=== PATIENT | male | born 1945 | race Caucasian/White ===

== ENCOUNTER → 2017-04-15 | Outpatient (CLI) | payer OTHER ==
--- NOTE | 2017-04-16 08:56 | DIAGNOSTIC IMAGING REPORT ---
MRI OF THE LUMBAR SPINE WITHOUT CONTRAST CLINICAL HISTORY: Spinal stenosis. Back pain with bilateral lower extremity radiculopathy. COMPARISON STUDY: No previous studies for comparison. TECHNIQUE: Utilizing a 1.5 Arleen magnet and dedicated coil, multiplanar, multiecho imaging of the lumbar spine was performed without IV contrast. FINDINGS: For purposes of numbering on this exam, the L5-S1 disc space is assigned to axial image 23 of 25. Alignment of lumbar spine is anatomic. There is no evidence for acute compression fracture. A Schmorl's node along the superior endplate of L3 is noted. Paravertebral soft tissues are unremarkable. A few T2 hyperintense bilateral renal lesions are suboptimally assessed on this unenhanced exam but statistically reflect cysts. The conus terminates at the mid L1 level. Note is made of a 6 mm round intradural extramedullary lesion immediately distal to the conus located at the L1 level. No additional intracanalicular lesions are identified. L1-2: Central canal and neural foramen are patent. L2-3: There is disc bulge with a superimposed right paracentral/right foraminal disc protrusion with mild narrowing of the right neural foramen and mild narrowing of the right neural foramen. Left neural foramen is patent. L3-4: Central canal and neural foramen are patent. There is facet arthrosis. L4-5: There is facet arthrosis. Central canal and neural foramen are patent. L5-S1: Central canal and neural foramen are patent. IMPRESSION: 1. 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 Differential considerations include a meningioma and schwannoma. A drop metastasis could appear similar although is statistically much less likely. No additional intracanalicular masses. 2. Mild multilevel degenerative changes with a small central/right paracentral disc protrusion at L2-L3 that results in mild narrowing of the right aspect of the canal and right neural foramen. Otherwise, patent central canal. Electronically signed by: Heron Rodriguez M.D. 04/16/2017 8:54 AM Dictated Date/Time: 04/15/2017 1:32 PM
== END | disposition home or self-care (01) ==
LOC: C.MRIBC 12:29
PROVIDERS: ATTEND Orthopaedic Surgery Orthopaedic Surgery of the Spine
DX: M48.061 Spinal stenosis, lumbar region without neurogenic claudication (principal); M53.86 Other specified dorsopathies, lumbar region

== ENCOUNTER 2019-03-28 07:17 | Inpatient (IN) ==
--- NOTE | 2019-03-07 15:36 | PAT Medication Instructions ---
Medication Instructions Date of Service March 07, 2019 Home Medications Bifidobacterium infantis 4 mg capsule 4 mg PO DAILY allopurinol 300 mg tablet 300 mg PO HS chlorthalidone 25 mg tablet 25 mg PO QAM dicyclomine 10 mg capsule 10 mg PO QAM losartan 50 mg tablet 50 mg PO HS rosuvastatin 20 mg tablet 20 mg PO HS tamsulosin 0.4 mg capsule 0.4 mg PO HS amlodipine 5 mg PO HS levothyroxine 25 mcg PO QAM psyllium seed [Metamucil (sugar)] 1 tbsp PO DAILY DO NOT take the morning of surgery Bifidobacterium infantis 4 mg capsule 4 mg PO DAILY chlorthalidone 25 mg tablet 25 mg PO QAM dicyclomine 10 mg capsule 10 mg PO QAM psyllium seed [Metamucil (sugar)] 1 tbsp PO DAILY Take morning of surgery With a small sip of water, OTHERWISE NOTHING TO EAT OR DRINK AFTER MIDNIGHT: levothyroxine 25 mcg PO QAM Take evening before surgery allopurinol 300 mg tablet 300 mg PO HS losartan 50 mg tablet 50 mg PO HS rosuvastatin 20 mg tablet 20 mg PO HS tamsulosin 0.4 mg capsule 0.4 mg PO HS amlodipine 5 mg PO HS Other Notes If you have any questions please call us at [phone] or [phone] or [phone] or [phone]
--- NOTE | 2019-03-08 15:36 | Anesthesiology Consultation ---
Date of Service March 08, 2019 Assessment & Plan (1) Encounter for pre-operative examination: Chart Review Chart Review: Acceptable Risk for Surgery and Patient seen in Pre Admission Testing Teaching & Discussion Instructed NPO after midnight before surgery, except medications with 15 cc of water. Medication instructions provided according to the PAT guidelines. History Surgery Operation Date: 03/28/19 12:55 Proposed Procedures p Laparoscopic Robotic Assisted Retrograde Radical Retropubic Prostatectomy, Possible Open, Possible Pevlic Lymph Node Disection, Posible Suprapubic Tube Placement - Brad Gracia MD Height/Weight Height: 5 ft 8 in Weight: 95.8 kg Allergies Allergy/AdvReac Type Severity Reaction Status Date / Time NSAIDS (Non-Steroidal AdvReac Unknown PT HAS Verified 03/06/19 09:36 Anti-Inflamma CHRONIC KIDNEY DISEASE DYES AdvReac Unknown PT HAS Uncoded 03/06/19 09:36 CHRONIC KIDNEY DISEASE Medications Home Medications Medication Instructions Recorded Confirmed Last Taken Bifidobacterium infantis 4 mg 4 mg PO DAILY 11/02/18 03/06/19 Unknown capsule allopurinol 300 mg tablet 300 mg PO HS 11/02/18 03/06/19 Unknown chlorthalidone 25 mg tablet 25 mg PO QAM 11/02/18 03/06/19 03/05/19 dicyclomine 10 mg capsule 10 mg PO QAM 11/02/18 03/06/19 03/06/19 losartan 50 mg tablet 50 mg PO HS 11/02/18 03/06/19 Unknown rosuvastatin 20 mg tablet 20 mg PO HS 11/02/18 03/06/19 Unknown tamsulosin 0.4 mg capsule 0.4 mg PO HS 11/02/18 03/06/19 Unknown amlodipine 5 mg PO HS 03/06/19 03/06/19 Unknown levothyroxine 25 mcg PO QAM 03/06/19 03/06/19 03/05/19 psyllium seed (sugar) [Metamucil 1 tbsp PO DAILY 03/06/19 03/06/19 Unknown (sugar)] Past Medical History Medical History Chronic kidney disease STAGE 3 Colon polyp (Acute) Diverticula of colon (Acute) Gout (Acute) HX OF HTN (hypertension) (Acute) Hyperlipidemia Hypothyroidism IBS (irritable bowel syndrome) (Acute) Prostate cancer (Acute) Exercise / Class Metabolic Activity II 4-5 Yardwork/Stairs/Walk up hill (Denies CP or SOB with activity, actively works constructions, stairs.) Past Family History Family History Mother , age 77 CHF (congestive heart failure) Father , age 69 Myocardial infarction Brother , age 76 Lung cancer " Never Smoked " Family history of cancer Brother Prostate cancer prostate seed implant 10 yrs ago Lupus Myocardial infarction Sister Heart disease bypass surgery times 2 Son Gout Hypertension Past Surgical History Surgical History H/O umbilical hernia repair (Acute) surgery 2011 History of cardiac cath 15 YR AGO , MELISSA, D/T FAMILY HX - NO FINDINGS History of colonoscopy History of endoscopy Hx of tonsillectomy (Acute) surgery age 6 Past Anesthesia History No Hx of Anesthesia Complications and No Family Hx of Anesthesia Complications History of PONV No Hx of PONV and No Hx of Motion Sickness Social History Smoking Status: Never smoker Do You Dip or Chew Tobacco: No Hx Alcohol Use: Yes Alcohol type: beer alcohol intake frequency: holidays/special occasions only Hx Substance Use: No substance use type: does not use Review of Systems Pt denies any recent chest pain, shortness of breath, palpitations, cough, fever or URI. Physical Exam Vital Signs BP: 136/70 P: 53bpm SPO2: 96% RA T: 97.9 F R: 12 ENMT Mouth: + dental restorations (few caps); no chipped teeth and no loose teeth Thyromental Distance: > or= 3.5 Finger Breadths (4) Mallampati Class: I Neck normal visual inspection; neck extension not limited Respiratory normal respiratory effort Auscultation: lungs clear to auscultation bilaterally Cardiovascular Rate/Rhythm: regular rate and regular rhythm Heart Sounds: no murmur Vessels: no carotid bruit Extremities: no edema Testing Laboratory Results 03/08/19 15:24 03/08/19 15:24 Urine Color Yellow 03/08/19 Unknown Urine Appearance Clear (Clear) 03/08/19 Unknown Urine pH 5.0 (4.5-7.5) 03/08/19 Unknown Ur Specific [place] 1.018 (1.000-1.030) 03/08/19 Unknown Urine Protein Negative (Negative) 03/08/19 Unknown Urine Glucose (UA) Negative (Negative) 03/08/19 Unknown Urine Ketones Negative (Negative) 03/08/19 Unknown Urine Nitrite Negative (Negative) 03/08/19 Unknown Ur Leukocyte Esterase Negative (Negative) 03/08/19 Unknown Blood Type O Positive 03/08/19 15:24 Antibody Screen NEGATIVE 03/08/19 15:24 03/08/19 Unknown Urine Culture - Preliminary Urine,Clean Catch No growth - Less than 1,000 colonies/mL, Final report to follow. Electrocardiogram Date: 08/11/18 Findings: + SB @ (49bpm) otherwise normal Chest X-Ray Date: 03/08/19 Findings: + NAD
--- NOTE | 2019-03-08 16:05 | XRay Report ---
XR chest Pre-admission PA/Lat CLINICAL HISTORY: pat preoperative evaluation COMPARISON STUDY: No previous studies for comparison. FINDINGS: The bones soft tissues and hemidiaphragms are normal. The cardiomediastinal silhouette is n ormal. The lungs are clear. The pulmonary vasculature is normal. IMPRESSION: Negative chest. The above report was generated using voice recognition software. It may contain grammatical, syntax or spelling errors. Electronically signed by: Jonny Dodge M.D. 03/08/2019 4:04 PM
[2019-03-08 16:32] LABS: Basophils # (auto) 0.06 K/uL (0-0.2); Basophils % (auto) 0.5 %; Eosinophils % (auto) 1.6 %; Hematocrit (blood only) 40.2 % (42-52); Hemoglobin 13.3 g/dL (14.0-18.0); Immature Granulocytes # (auto) 0.19 K/uL (0.00-0.02); Immature Granulocytes % (auto) 1.5 %; Lymphocytes # (auto) 1.98 K/uL (1.2-3.4); Lymphocytes % (auto) 15.6 %; Mean Corpuscular Hemoglobin 32.5 pg (25-34); Mean Corpuscular Hgb Conc 33.1 g/dL (32-36); Mean Corpuscular Volume 98.3 fL (80-100); Mean Platelet Volume 10.4 fL (7.4-10.4); Monocytes # (auto) 1.01 K/uL (0.11-0.59); Monocytes % (auto) 7.9 %; Neutrophils # (auto) 9.29 K/uL (1.4-6.5); Neutrophils % (auto) 72.9 %; Platelet Count 283 K/uL (130-400); RDW Coefficient of Variation 13.2 % (11.5-14.5); RDW Standard Deviation 47.2 fL (36.4-46.3); Red Blood Count 4.09 M/uL (4.7-6.1); White Blood Count 12.73 K/uL (4.8-10.8)
[2019-03-08 16:34] LABS: Appearance Urine Clear (Clear); Bilirubin Urine Negative (Negative); Blood Urine Negative (Negative); Color Urine Yellow; Glucose Urine UA Negative (Negative); Ketones Urine Negative (Negative); Leukocyte Esterase Urine Negative (Negative); Nitrite Urine Negative (Negative); Protein Urine Negative (Negative); Specific Gravity Urine 1.018 (1.000-1.030); Urobilinogen Urine Negative (Negative)
[2019-03-08 16:41] LABS: BUN Creatinine Ratio 20.8 (10-20); Calcium 9.2 mg/dl (8.5-10.1); Creatinine Clr Calc Pharmacy 60.4 ml/min; Est GFR (African American) 66.9; Est GFR (Non-African American) 57.7
[~2019-03-28 07:17] MED LIST: CEFAZOLIN 3000MG 65 ML IV SCH; HEPARIN SOD 5,000 UNIT/0.5 ML VIAL SQ SCH; LR 15ML/HR IV SCH
--- NOTE | 2019-03-28 07:17 | History & Physical Bridge Note ---
Date of Service March 28, 2019 History & Physical Bridge Note I have examined the patient, reviewed the History & Physical and in the interval since the performance of the History & Physical I have noted the following changes of clinical significance: no changes noted
[2019-03-28] MEDS ORDERED: BUPIVACAINE 0.5 % 5 MG/1 ML MPF 30ML VIAL ONE (08:19)
[2019-03-28] MEDS ORDERED: ROCURONIUM BROMIDE 10 MG/ML 5 ML VIAL ONE ×4 (08:20→10:37)
[2019-03-28] MEDS ORDERED: fentaNYL citrate 100 MCG/2 ML VIAL ONE ×2 (08:20→10:54)
[2019-03-28] MEDS ORDERED: MIDAZOLAM HCL 1 MG/ML 2ML VIAL ONE (08:20)
[2019-03-28] MEDS ORDERED: PROPOFOL IV EMULSION 10 MG/ML 20 ML VIAL IV ONE (08:20)
[2019-03-28] MEDS ORDERED: ONDANSETRON INJ 2 MG/ML 2 ML VIAL ONE (08:20)
[2019-03-28] MEDS ORDERED: LIDOCAINE HCL 2% 2 ML VIAL/AMP(20MG/ML) INFIL ONE (08:20)
[2019-03-28] MEDS ORDERED: BELLADONNA/OPIUM SUPP 60 MG SUPP PR ONE ×2 (08:21→09:13)
[2019-03-28] MEDS ORDERED: ATROPINE SULFATE 0.1 MG/ML 10ML SYR IV PRN (08:39)
[2019-03-28] MEDS ORDERED: ONDANSETRON INJ 2 MG/ML 2 ML VIAL IV PRN (08:39)
[2019-03-28] MEDS ORDERED: ePHEDrine sulfate 50 MG/ML AMP IV PRN (08:39)
[2019-03-28] MEDS ORDERED: BELLADONNA/OPIUM SUPP 60 MG SUPP PR PRN (10:04)
[2019-03-28] MEDS ORDERED: SURGICEL ABSORB HEMOSTAT 2IN X 14IN TOP ONE (10:19)
[2019-03-28] MEDS ORDERED: ePHEDrine sulfate 50 MG/ML AMP ONE (10:37)
[2019-03-28] MEDS ORDERED: PHENYLEPHRINE 100MCG/ML 5ML SYR ONE (10:37)
[2019-03-28] MEDS ORDERED: FLOSEAL HEMOSTATIC MATRIX 10ML TOP ONE (11:52)
[2019-03-28] MEDS ORDERED: GLYCOPYRROLATE 0.2 MG/ML VIAL ONE (11:58)
[2019-03-28] MEDS ORDERED: NEOSTIGMINE METHYLSULFATE 5 MG/5 ML SYR ONE (11:58)
[2019-03-28] MEDS: fentaNYL citrate 100 MCG/2 ML VIAL IV PRN ×4 (12:42→12:57)
[2019-03-28 13:00] LABS: Basophils # (auto) 0.02 K/uL (0-0.2); Basophils % (auto) 0.1 %; Eosinophils # (auto) 0.09 K/uL (0-0.5); Eosinophils % (auto) 0.7 %; Hematocrit (blood only) 39.8 % (42-52); Hemoglobin 13.2 g/dL (14.0-18.0); Immature Granulocytes # (auto) 0.06 K/uL (0.00-0.02); Immature Granulocytes % (auto) 0.4 %; Lymphocytes # (auto) 0.66 K/uL (1.2-3.4); Lymphocytes % (auto) 4.9 %; Mean Corpuscular Volume 99.5 fL (80-100); Mean Platelet Volume 9.8 fL (7.4-10.4); Monocytes # (auto) 0.62 K/uL (0.11-0.59); Monocytes % (auto) 4.6 %; Neutrophils # (auto) 12.13 K/uL (1.4-6.5); Neutrophils % (auto) 89.3 %; Platelet Count 225 K/uL (130-400); RDW Coefficient of Variation 13.1 % (11.5-14.5); RDW Standard Deviation 47.6 fL (36.4-46.3); White Blood Count 13.58 K/uL (4.8-10.8)
[2019-03-28 13:02] LABS: Mean Corpuscular Hgb Conc 33.2 g/dL (32-36)
[2019-03-28] MEDS: HYDROmorphone INJ 1 MG/ML SYRINGE IV PRN ×8 (13:02→13:37)
[2019-03-28 13:16] LABS: BUN Creatinine Ratio 16.4 (10-20); Calcium 9.2 mg/dl (8.5-10.1); Creatinine Clr Calc Pharmacy 44.8 ml/min; Est GFR (African American) 47.7; Est GFR (Non-African American) 41.2; Potassium 4.1 mmol/L (3.5-5.1)
--- NOTE | 2019-03-28 13:46 | Anesthesiology Progress Note ---
Date of Service March 28, 2019 Anesthesia Post Procedure Vital Signs Vital Signs: Temp Pulse Resp BP Pulse Ox 03/28/19 13:35 78 14 148/69 H 97 03/28/19 13:25 75 12 140/69 99 03/28/19 13:15 75 14 142/68 H 95 03/28/19 13:05 77 14 125/68 98 03/28/19 12:55 85 13 122/76 98 03/28/19 12:45 76 19 133/64 91 03/28/19 12:37 36.6 C 85 15 112/59 L 98 Pain Intensity Abdomen: Pain Intensity: 6 Transfer of Care Handoff Completed per policy Notes Mental Status: alert / awake / arousable and participated in evaluation Patient Amnestic to Procedure: Yes Nausea / Vomiting: adequately controlled Pain: adequately controlled Airway Patency, RR, SpO2: stable & adequate BP & HR: stable & adequate Hydration State: stable & adequate Anesthetic Complications: no major complications apparent and Pt Satisfied with anesthetic care
[2019-03-28] MEDS ORDERED: MoRPHine SULFATE 4 MG/ML 1 ML CARP\\VIAL IV PRN (14:24)
[2019-03-28] MEDS ORDERED: OXYCODONE HCL IR 5 MG TAB (IMMEDIATE RELEASE) PO PRN (14:24)
[2019-03-28] MEDS: ACETAMINOPHEN 1,000 MG/100 ML VIAL IV SCH ×2 (15:24→22:29)
[2019-03-28] MEDS: LACTATED RINGER'S 1,000 ML IV SCH (15:25)
[2019-03-28] MEDS: OXYCODONE HCL IR 5 MG TAB (IMMEDIATE RELEASE) PO PRN ×2 (16:27→20:56)
[2019-03-28] MEDS: CEFAZOLIN 2000MG 2,000 MG/15 ML SYR IV SCH ×2 (16:28→23:56)
[2019-03-28] MEDS ORDERED: COUGH DROP (SUGAR FREE) LOZ 24 LOZ/1 BOX BUCCAL PRN (19:18)
[2019-03-28] MEDS: LOSARTAN POTASSIUM 50 MG TAB PO SCH (20:14)
[2019-03-28] MEDS: DOCUSATE SODIUM 100 MG CAP PO SCH (20:14)
[2019-03-28] MEDS: HEPARIN SOD 5,000 UNIT/0.5 ML VIAL SQ SCH (20:15)
[2019-03-28] MEDS: allopurinoL 300 MG TAB PO SCH (20:15)
[2019-03-28] MEDS ORDERED: ROSUVASTATIN CALCIUM 20 MG TAB PO SCH (21:00)
[2019-03-28] MEDS ORDERED: LOSARTAN POTASSIUM 50 MG TAB PO SCH (21:00)
[2019-03-28] MEDS ORDERED: AMLODIPINE BESYLATE 5 MG TAB PO SCH (21:00)
[2019-03-28] MEDS: MoRPHine SULFATE 10 MG/ML CARP/VIAL IV PRN (22:29)
[2019-03-29] MEDS: MoRPHine SULFATE 10 MG/ML CARP/VIAL IV PRN ×5 (03:14→14:55)
[2019-03-29] MEDS: LACTATED RINGER'S 1,000 ML IV SCH ×2 (03:14→16:04)
[2019-03-29] MEDS: OXYCODONE HCL IR 5 MG TAB (IMMEDIATE RELEASE) PO PRN ×4 (05:40→20:55)
[2019-03-29] MEDS: ACETAMINOPHEN 1,000 MG/100 ML VIAL IV SCH (06:12)
[2019-03-29] MEDS: LEVOTHYROXINE SODIUM 25 MCG TABLET PO SCH (06:13)
[2019-03-29 07:02] LABS: Basophils # (auto) 0.01 K/uL (0-0.2); Basophils % (auto) 0.1 %; Eosinophils # (auto) 0.02 K/uL (0-0.5); Eosinophils % (auto) 0.2 %; Hematocrit (blood only) 35.8 % (42-52); Hemoglobin 11.9 g/dL (14.0-18.0); Immature Granulocytes # (auto) 0.02 K/uL (0.00-0.02); Immature Granulocytes % (auto) 0.2 %; Lymphocytes # (auto) 0.84 K/uL (1.2-3.4); Lymphocytes % (auto) 9.7 %; Mean Corpuscular Hemoglobin 32.4 pg (25-34); Mean Corpuscular Hgb Conc 33.2 g/dL (32-36); Mean Corpuscular Volume 97.5 fL (80-100); Mean Platelet Volume 9.8 fL (7.4-10.4); Monocytes # (auto) 0.99 K/uL (0.11-0.59); Monocytes % (auto) 11.5 %; Neutrophils # (auto) 6.76 K/uL (1.4-6.5); Neutrophils % (auto) 78.3 %; Platelet Count 209 K/uL (130-400); RDW Coefficient of Variation 13.4 % (11.5-14.5); RDW Standard Deviation 47.8 fL (36.4-46.3); Red Blood Count 3.67 M/uL (4.7-6.1); White Blood Count 8.64 K/uL (4.8-10.8)
[2019-03-29 07:28] LABS: BUN Creatinine Ratio 16.3 (10-20); Calcium 8.5 mg/dl (8.5-10.1); Est GFR (African American) 51.9; Est GFR (Non-African American) 44.8
--- NOTE | 2019-03-29 07:33 | Operative Report ---
PG Post Operative Report Pre & Post Diagnosis Operation Date: 03/28/19 08:35 Pre-Op Diagnosis: Prostate Cancer Post-Op Diagnosis: Prostate Cancer I identified the patient and participated in the time-out.: Yes Procedure Operation Date: 03/28/19 08:35 Actual Procedures p Laparoscopic Robotic Assisted Prostatectomy,Bilateral Pevlic Lymph Node Disection - Brad Gracia MD Surgeon aIn Gracia MD Multi Operation Machine Operator Lalitha Torres and Azra Baker Estimated Blood Loss 150 Findings Consistent with Post-Op Diagnosis Specimens 1. Periprostatic fat 2. Left pelvic lymph nodes 3. Right pelvic lymph nodes Description of Procedure The patient was identified in the preoperative holding area, appropriate informe d consents were reviewed and completed, and he was transported to the operating suite. Subcutaneous heparin was administered in the pre-operative holding area. Upon arrival in the operating suite, he received appropriate antibiotics and general anesthesia. He was positioned in dorsal lithotomy, a B&O suppository was inserted after digital rectal exam, and he was prepped and draped in standard fashion. A Flowers catheter was inserted in the sterile field. A Veress needle was passed into the right upper quadrant (location chosen secondary to prior umbilical hernia repair) with uniform insufflation of the abdomen to 15mmHg. A right lateral abdominal incision was made - approximately 15cm from the umbilicus - to accommodate a 12mm Visiport with 10mm 0degree laparoscope. Inspection of the abdomen was carried out, and there was no evidence of traumatic entry or injury secondary to the Veress needle. There were no significant adhesions at the umbilicus or other locations to preclude port placement in a standard configuration. After confirming a clear anterior abdominal wall, ports were subsequently placed in standard robotic prostatectomy fashion without incident. To begin the robotic portion of the case, the left lateral aspect of the sigmoid was mobilized off of the left pelvic side wall to allow the pouch of Villa to be appropriately visualized. Unfortunately, the pouch of Villa was essentially walled off - not allowing distal enough access to dissect the SVs. The medial umbilical ligaments were then controlled with bipolar electrocautery just inferior to the umbilicus. Following cauterization, they were divided utilizing monopolar cautery. A peritoneal incision was carried from this location to the medial aspect of the internal inguinal rings bilaterally with care to avoid opening through the ring. This incision was concluded when the vas deferens was reached. Dissection of the bladder and prostate off of the posterior aspect of the pubic arch was completed allowing full visualization of the prostate. The fat overlying the prostate was removed en bloc and passed off the table as a specimen labeled "periprostatic fat". The endopelvic fascia was cleared during this portion of the procedure, and subsequently opened - first on the right and then the left. The incision through the endopelvic fascia began near the prostate-bladder junction and was carried to the apex with extreme care to preserve all lateral levator musculature as well as the periurethral musculature and sphincter complex. The puboprostatic ligaments were thinned slightly bilaterally before placing a 0-Vicryl figure of 8 stitch around the DVC. The lymph node dissection was then conducted. External iliac vessels were identified on the pelvic side wall. The packet of fat and lymphatic tissue that resides just under the iliac vein was elevated and off of the vein with a split and roll technique. The packet was dissected laterally to the circumflex vein and distally to the obturator nerve which was preserved. The proximal aspect of the packet was carried towards the bifurcation of the iliac vessels. A combination of monopolar and bipolar cautery were used to assist with control. Clips were placed at the proximal and distal aspects of the packet prior to transection. After completing the dissection on both sides, the packets were collected and passed off of the table as specimens labeled "pelvic lymph nodes". My attention then returned to the prostate, with identification of the bladder neck aided by gentle traction on the Flowers catheter and lateral to medial pressure at the presumed level of the bladder neck with the robotic instruments. An anterior cystotomy was made, the Flowers balloon deflated and the catheter guided through the incision to allow anterior retraction. I attempted to preserve maximal bladder neck musculature as I circumferentially dissected around the bladder neck. Of note, he had a small intravesical lobe which was included with the specimen but required additional attention. After incision through the posterior aspect of the mucosa, the dissection was carried through detrusor muscle until the bilateral ampullae of the vasa were identified. Unfortunately, because of the median lobe and the size of the prostate, the angle of dissection was extremely difficult. After spending considerable time attempting to dissect out the SVs and vasa, I ultimately elected to transect these structures near the base of the prostate. I was then able to develop a posterior plane behind the prostate - splitting Denonvilliers's fascia. This dissection was carried as far as possible towards the apex as well as far as possible laterally. An incision in the lateral prostatic fascia was then made bilaterally to faci litate control of the vascular pedicles. The pedicles were each controlled with a series of Weck clips and judicious use of bipolar cautery. The neurovascular bundles were identified with nerves preserved bilaterally. The apical attachments of the prostate were remaining at that stage. The DVC was divided with bipolar electrocautery. Usha-prostatic tissue incised with sharp dissection and monopolar cautery. Maximal urethral length was preserved before dividing the urethra sharply. The prostate was entirely freed at that point, and collected in an EndoCatch bag before being moved out of the field of vision. Hemostasis was confirmed and anastomosis of the bladder and urethra was completed utilizing a double armed V- Lock stitch. A new Flowers catheter was inserted and the anastomosis tested with irrigation. There was no evidence of leak. FloSeal coagulant was placed around the anastomosis. A willem style stitch was used to functionally marsupialize the areas of prior lymph node dissection. The robot was undocked, the specimen extracted through expansion of the usha- umbilical camera port. The fascia was closed with a running 0-PDS - the prior hernia incision was utilized for this. The right medical lab assistant port was closed in two layers - with a figure of 8 0-Vicryl to reapproximate the fascia followed by 4-0 Monocryl to close the skin. Monocryl was used to close all other skin incisions. All wounds were dressed with Dermabond. Lalitha Torres and Linh Baker were present and assisting throughout the case from incision to closure The case was concluded and the patient taken to the PACU in stable condition. I attest to the content of the Intraoperative Record and any orders documented therein. Any exceptions are noted below.
--- NOTE | 2019-03-29 07:55 | Urology Progress Note ---
Date of Service March 29, 2019 Assessment & Plan (1) Prostate cancer: Postop day 1 status post prostatectomy Recovery on pace Ambulate Continue clear liquids Continue IV fluids for now Uncertain he will be ready for discharge home today Subjective Some pain overnight, had his catheter irrigated once but no issues since that time He has not ambulated, but he has been out of bed He is not nauseated but is also not hungry He is taking in water without issue Review of Systems Review of Systems: All systems reviewed & are unremarkable except as noted in HPI & below Physical Exam Physical Exam: Incisions appropriate, no bruising, no strikethrough Urine clear in the catheter Results & Data Vital Signs (Past 12 Hours) Vital Signs Temp Pulse Resp BP Pulse Ox 03/29/19 03:14 36.8 C 62 18 153/87 H 95 03/28/19 22:49 37.0 C 68 16 138/70 93 PG Care Time/CCT Total # of Minutes Spent Total Time Spent with Patient: Total time spent is greater than 50% in coordination of care (as documented) at patient's floor/unit and/or counseling patient:
[2019-03-29] MEDS: LOSARTAN POTASSIUM 50 MG TAB PO SCH ×2 (08:09→20:55)
[2019-03-29] MEDS: ROSUVASTATIN CALCIUM 20 MG TAB PO SCH (08:09)
[2019-03-29] MEDS: PSYLLIUM 58.6% POWDER PACKET PO SCH (08:09)
[2019-03-29] MEDS: LACTOBACILLUS ACIDOPHILUS (FLORANEX) TAB PO SCH (08:09)
[2019-03-29] MEDS: DOCUSATE SODIUM 100 MG CAP PO SCH ×2 (08:10→18:06)
[2019-03-29] MEDS: CHLORTHALIDONE 25 MG TAB PO SCH (08:10)
[2019-03-29] MEDS: HEPARIN SOD 5,000 UNIT/0.5 ML VIAL SQ SCH ×2 (08:10→21:00)
[2019-03-29] MEDS: ONDANSETRON INJ 2 MG/ML 2 ML VIAL IV PRN (10:52)
[2019-03-29] MEDS ORDERED: ALUMINUM/MAGNESIUM SUSP 30 ML UDC ONE (12:49)
[2019-03-29] MEDS: ALUMINUM/MAGNESIUM SUSP 30 ML UDC PO PRN ×2 (12:50→20:58)
[2019-03-29] MEDS: MoRPHine SULFATE 4 MG/ML 1 ML CARP\\VIAL IV PRN ×2 (18:06→23:21)
[2019-03-29] MEDS: allopurinoL 300 MG TAB PO SCH (20:55)
[2019-03-30] MEDS: LACTATED RINGER'S 1,000 ML IV SCH ×2 (05:12→18:18)
[2019-03-30] MEDS: LEVOTHYROXINE SODIUM 25 MCG TABLET PO SCH (05:56)
[2019-03-30] MEDS ORDERED: KETOROLAC TROMETHAMINE 15 MG/ML VIAL IV ONE (06:50)
--- NOTE | 2019-03-30 06:53 | Urology Progress Note ---
Date of Service March 30, 2019 Assessment & Plan (1) Prostate cancer: POD#2 s/p RALP distended, abdominal pain tylenol and narcotics are not helping tremendously despite his borderline Cr, we will offer a single dose of toradol 15mg now ambulate cont ivf Subjective still with notable abdominal pain distended no nausea/vomiting no BM or flatus yet Physical Exam Physical Exam: incisions appropriate abdomen distendend diffusely tender - no focal tenderness no lower extremity edema Results & Data Vital Signs (Past 12 Hours) Vital Signs Temp Pulse Resp BP Pulse Ox 03/29/19 23:41 36.7 C 57 L 18 145/70 H 92 PG Care Time/CCT Total # of Minutes Spent Total Time Spent with Patient: Total time spent is greater than 50% in coordination of care (as documented) at patient's floor/unit and/or counseling patient:
[2019-03-30 08:18] LABS: Basophils # (auto) 0.03 K/uL (0-0.2); Basophils % (auto) 0.4 %; Eosinophils # (auto) 0.18 K/uL (0-0.5); Eosinophils % (auto) 2.3 %; Hematocrit (blood only) 36.2 % (42-52); Hemoglobin 11.7 g/dL (14.0-18.0); Immature Granulocytes # (auto) 0.03 K/uL (0.00-0.02); Immature Granulocytes % (auto) 0.4 %; Lymphocytes # (auto) 1.11 K/uL (1.2-3.4); Lymphocytes % (auto) 14.3 %; Mean Corpuscular Hemoglobin 32.3 pg (25-34); Mean Corpuscular Hgb Conc 32.3 g/dL (32-36); Mean Platelet Volume 9.9 fL (7.4-10.4); Monocytes # (auto) 0.89 K/uL (0.11-0.59); Monocytes % (auto) 11.5 %; Neutrophils # (auto) 5.51 K/uL (1.4-6.5); Neutrophils % (auto) 71.1 %; Platelet Count 229 K/uL (130-400); RDW Coefficient of Variation 13.5 % (11.5-14.5); RDW Standard Deviation 48.9 fL (36.4-46.3); Red Blood Count 3.62 M/uL (4.7-6.1); White Blood Count 7.75 K/uL (4.8-10.8)
[2019-03-30] MEDS: LOSARTAN POTASSIUM 50 MG TAB PO SCH ×2 (08:31→21:00)
[2019-03-30] MEDS: CHLORTHALIDONE 25 MG TAB PO SCH (08:31)
[2019-03-30] MEDS: LACTOBACILLUS ACIDOPHILUS (FLORANEX) TAB PO SCH (08:31)
[2019-03-30] MEDS: HEPARIN SOD 5,000 UNIT/0.5 ML VIAL SQ SCH ×2 (08:31→21:02)
[2019-03-30] MEDS: PSYLLIUM 58.6% POWDER PACKET PO SCH (08:31)
[2019-03-30] MEDS: DOCUSATE SODIUM 100 MG CAP PO SCH ×2 (08:31→21:00)
[2019-03-30] MEDS: ROSUVASTATIN CALCIUM 20 MG TAB PO SCH (08:31)
[2019-03-30] MEDS: MoRPHine SULFATE 4 MG/ML 1 ML CARP\\VIAL IV PRN (08:33)
[2019-03-30 08:50] LABS: BUN Creatinine Ratio 13.4 (10-20); Creatinine Clr Calc Pharmacy 53.2 ml/min; Est GFR (African American) 58.8; Est GFR (Non-African American) 50.7; Potassium 3.8 mmol/L (3.5-5.1)
[2019-03-30] MEDS: OXYCODONE HCL IR 5 MG TAB (IMMEDIATE RELEASE) PO PRN ×3 (11:57→21:01)
[2019-03-30] MEDS: ALUMINUM/MAGNESIUM SUSP 30 ML UDC PO PRN (15:44)
[2019-03-30] MEDS: allopurinoL 300 MG TAB PO SCH (21:00)
[2019-03-31] MEDS: MoRPHine SULFATE 4 MG/ML 1 ML CARP\\VIAL IV PRN ×3 (02:36→23:27)
[2019-03-31] MEDS: LEVOTHYROXINE SODIUM 25 MCG TABLET PO SCH (05:17)
[2019-03-31] MEDS: OXYCODONE HCL IR 5 MG TAB (IMMEDIATE RELEASE) PO PRN ×4 (05:17→20:59)
[2019-03-31] MEDS: LACTATED RINGER'S 1,000 ML IV SCH (07:35)
[2019-03-31 08:22] LABS: Basophils # (auto) 0.03 K/uL (0-0.2); Basophils % (auto) 0.4 %; Eosinophils # (auto) 0.29 K/uL (0-0.5); Eosinophils % (auto) 3.6 %; Hematocrit (blood only) 35.6 % (42-52); Hemoglobin 11.5 g/dL (14.0-18.0); Immature Granulocytes # (auto) 0.03 K/uL (0.00-0.02); Immature Granulocytes % (auto) 0.4 %; Lymphocytes # (auto) 0.94 K/uL (1.2-3.4); Lymphocytes % (auto) 11.6 %; Mean Corpuscular Hemoglobin 32.9 pg (25-34); Mean Corpuscular Hgb Conc 32.3 g/dL (32-36); Mean Corpuscular Volume 101.7 fL (80-100); Mean Platelet Volume 9.7 fL (7.4-10.4); Monocytes # (auto) 0.79 K/uL (0.11-0.59); Monocytes % (auto) 9.7 %; Neutrophils # (auto) 6.05 K/uL (1.4-6.5); Neutrophils % (auto) 74.3 %; Platelet Count 207 K/uL (130-400); RDW Coefficient of Variation 13.1 % (11.5-14.5); RDW Standard Deviation 48.6 fL (36.4-46.3); White Blood Count 8.13 K/uL (4.8-10.8)
[2019-03-31 08:49] LABS: BUN Creatinine Ratio 11.8 (10-20); Creatinine Clr Calc Pharmacy 54.4 ml/min; Est GFR (African American) 60.4; Est GFR (Non-African American) 52.1; Potassium 3.7 mmol/L (3.5-5.1)
[2019-03-31] MEDS: PSYLLIUM 58.6% POWDER PACKET PO SCH (08:56)
[2019-03-31] MEDS: DOCUSATE SODIUM 100 MG CAP PO SCH ×2 (08:56→20:03)
[2019-03-31] MEDS: LACTOBACILLUS ACIDOPHILUS (FLORANEX) TAB PO SCH (08:56)
[2019-03-31] MEDS: CHLORTHALIDONE 25 MG TAB PO SCH (08:57)
[2019-03-31] MEDS: ROSUVASTATIN CALCIUM 20 MG TAB PO SCH (08:57)
[2019-03-31] MEDS: LOSARTAN POTASSIUM 50 MG TAB PO SCH ×2 (08:58→20:03)
[2019-03-31] MEDS: HEPARIN SOD 5,000 UNIT/0.5 ML VIAL SQ SCH ×2 (08:59→20:48)
[2019-03-31] MEDS ORDERED: bisacodyL 10 MG SUPP PR STA (09:20)
--- NOTE | 2019-03-31 10:19 | Urology Progress Note ---
Date of Service March 31, 2019 Assessment & Plan (1) Prostate cancer: 73yo M POD #3 s/p RALRP with Dr. Gracia Improving slowly, still with abdominal soreness - will give one time dose of toradol Has not moved bowels yet, some abdominal distention - will give dulcolax suppository today. PT ordered for poor ambulation operatively. Okay to advance diet slowly as pt able to tolerate. He would like to discharge today if clinically stable. Pt to be re-evaluated later today by Dr. Gracia. Subjective 73yo M POD # 3 s/p RALRP, BLND with Dr. Gracia Abd remains distended but improved from yesterday per patient report. Tolerating full clears but with minimal appetite. No flatus yet, no emesis Minimal ambulation due to soreness. Toradol did provide relief yesterday, one time dose given kidney function Labs reviewed -Cr continues to trend down. No leukocytosis, h/h stable. Review of Systems Review of Systems: All systems reviewed & are unremarkable except as noted in HPI & below Physical Exam Physical Exam: A&Ox3 RRR abd soft, nontender Results & Data Vital Signs (Past 12 Hours) Vital Signs Temp Pulse Pulse Resp BP Pulse Ox 03/31/19 08:00 36.7 C 69 19 174/74 H 92 03/30/19 23:12 36.9 C 63 16 149/69 H 90 PG Care Time/CCT Total # of Minutes Spent Total Time Spent with Patient: Total time spent is greater than 50% in coordination of care (as documented) at patient's floor/unit and/or counseling patient:
[2019-03-31] MEDS ORDERED: KETOROLAC TROMETHAMINE 15 MG/ML VIAL IV ONE (10:33)
[2019-03-31] MEDS: ACETAMINOPHEN 500 MG TAB PO PRN (19:58)
[2019-03-31] MEDS: CIPROFLOXACIN 400 MG/200 ML BAG IV SCH (19:58)
[2019-03-31] MEDS: allopurinoL 300 MG TAB PO SCH (20:03)
[2019-04-01] MEDS: ACETAMINOPHEN 500 MG TAB PO PRN ×3 (03:54→23:49)
[2019-04-01] MEDS: LEVOTHYROXINE SODIUM 25 MCG TABLET PO SCH (05:09)
[2019-04-01] MEDS: DOCUSATE SODIUM 100 MG CAP PO SCH ×2 (09:34→20:30)
[2019-04-01] MEDS: LACTOBACILLUS ACIDOPHILUS (FLORANEX) TAB PO SCH (09:34)
[2019-04-01] MEDS: PSYLLIUM 58.6% POWDER PACKET PO SCH (09:34)
[2019-04-01] MEDS: CHLORTHALIDONE 25 MG TAB PO SCH (09:34)
[2019-04-01] MEDS: LOSARTAN POTASSIUM 50 MG TAB PO SCH ×2 (09:34→20:30)
[2019-04-01] MEDS: ROSUVASTATIN CALCIUM 20 MG TAB PO SCH (09:34)
[2019-04-01] MEDS: HEPARIN SOD 5,000 UNIT/0.5 ML VIAL SQ SCH ×2 (09:34→20:30)
[2019-04-01] MEDS: CIPROFLOXACIN 400 MG/200 ML BAG IV SCH ×2 (09:46→20:29)
[2019-04-01] MEDS: MoRPHine SULFATE 4 MG/ML 1 ML CARP\\VIAL IV PRN ×2 (09:50→14:03)
--- NOTE | 2019-04-01 09:51 | Urology Progress Note ---
Date of Service April 01, 2019 Assessment & Plan (1) Prostate cancer: s/p RALP not progressing very quickly, low grade temps overnight started cipro now empirically bowel regimen with metamucil and probiotics i suspect this is more of an expected post op ileus than diverticulitis, but if he worsens overnight, imaging will likely be needed tomorrow Subjective set back overnight shaking chills and fevers resolved with tylenol abdominal pain persists - non-focal reports he feels it is similar to past episodes of diverticulitis did move his bowels a bit overnight not hungry now intermittent nausea Review of Systems Review of Systems: All systems reviewed & are unremarkable except as noted in HPI & below Physical Exam Physical Exam: mildly uncomfortable appearing incisions appropriate no focal tenderness, but uniformly tender (mild) moderately distended Results & Data Vital Signs (Past 12 Hours) Vital Signs Temp Pulse Resp BP Pulse Ox 04/01/19 07:57 37.4 C 83 18 107/61 93 04/01/19 05:10 36.7 C 04/01/19 03:48 38.8 C H 03/31/19 23:22 37.3 C 81 16 144/73 H 92 PG Care Time/CCT Total # of Minutes Spent Total Time Spent with Patient: Total time spent is greater than 50% in coordination of care (as documented) at patient's floor/unit and/or counseling patient:
[2019-04-01 09:59] LABS: Basophils # (auto) 0.02 K/uL (0-0.2); Basophils % (auto) 0.2 %; Eosinophils % (auto) 1.2 %; Hematocrit (blood only) 36.7 % (42-52); Hemoglobin 12.3 g/dL (14.0-18.0); Immature Granulocytes # (auto) 0.02 K/uL (0.00-0.02); Immature Granulocytes % (auto) 0.2 %; Lymphocytes # (auto) 0.47 K/uL (1.2-3.4); Lymphocytes % (auto) 5.5 %; Mean Corpuscular Hemoglobin 33.8 pg (25-34); Mean Corpuscular Hgb Conc 33.5 g/dL (32-36); Mean Corpuscular Volume 100.8 fL (80-100); Mean Platelet Volume 9.6 fL (7.4-10.4); Monocytes # (auto) 1.09 K/uL (0.11-0.59); Monocytes % (auto) 12.9 %; Neutrophils # (auto) 6.77 K/uL (1.4-6.5); Platelet Count 207 K/uL (130-400); RDW Standard Deviation 48.2 fL (36.4-46.3); Red Blood Count 3.64 M/uL (4.7-6.1); White Blood Count 8.47 K/uL (4.8-10.8)
[2019-04-01] MEDS ORDERED: PSYLLIUM 58.6% POWDER PACKET PO SCH (10:00)
[2019-04-01 10:26] LABS: BUN Creatinine Ratio 11.8 (10-20); Creatinine Clr Calc Pharmacy 45.6 ml/min; Est GFR (African American) 48.8; Est GFR (Non-African American) 42.1; Potassium 3.9 mmol/L (3.5-5.1)
[2019-04-01] MEDS: SACCHAROMYCES BOULARDII 250 MG CAP PO SCH (10:49)
[2019-04-01] MEDS: ONDANSETRON INJ 2 MG/ML 2 ML VIAL IV PRN ×2 (14:06→20:41)
--- NOTE | 2019-04-01 15:54 | XRay Report ---
XR chest 1V portable CLINICAL HISTORY: Fever. COMPARISON STUDY: Chest radiograph March 08, 2019. FINDINGS: Lung volumes are normal. There is no pneumothorax or pleural effusion. Linear left basilar opacity favors atelectasis. No consolidation is identified to suggest pneumonia and there is no evide nce for pulmonary edema. Moderate cardiomegaly is noted. IMPRESSION: 1. No acute findings. 2. Moderate cardiomegaly. 3. Linear left basilar opacity suggestive of atelectasis. Electronically signed by: Heron Rodriguez M.D. 04/01/2019 3:52 PM
[2019-04-01] MEDS: OXYCODONE HCL IR 5 MG TAB (IMMEDIATE RELEASE) PO PRN ×2 (16:53→20:41)
[2019-04-01] MEDS ORDERED: bisacodyL 10 MG SUPP PR STA (17:40)
--- NOTE | 2019-04-01 17:59 | CT Scan Report ---
CT OF THE ABDOMEN AND PELVIS WITHOUT CONTRAST CLINICAL HISTORY: Fever. Abdominal pain. Status post prostatectomy March 29, 2019. COMPARISON STUDY: No previous studies for comparison. TECHNIQUE: Axial images of the abdomen and pelvis were obtained without IV contrast. Images were revi ewed in the axial, sagittal, and coronal planes. Automated exposure control was utilized for the cass dy. A dose lowering technique was utilized adhering to the principles of ALARA. FINDINGS: Imaged portions of the lower lungs demonstrate moderate coronary artery calcification and a few low suspicion right middle lobe nodules which are likely benign. No pneumatosis, free air or por vaina venous gas is present. Unenhanced images of the liver, spleen and pancreas are unremarkable. Low- attenuation bilateral adrenal nodules favor adenomas. There is no hydronephrosis. A Flowers balloon is noted within the bladder. The bladder is collapsed. Numerous bilateral renal lesions are noted. These are suboptimally assessed on this unenhanced exam. The majority of these measure water attenuation a nd favor cysts. There is a 2 cm lesion within the upper pole of the right kidney, a 1.9 cm lesion wit hin the upper pole of the left kidney and a 0.7 cm lesion within the midpole of the right kidney whic h measure above water attenuation. There is no evidence for a bowel obstruction. Pancolonic diverticu losis is noted. There is mild diffuse colonic wall thickening with adjacent infiltration. No associat ed abscess is noted. There is no abnormality within the prostatectomy bed. Mild retroperitoneal infil tration and trace fluid is likely postsurgical. No lymphadenopathy is present. No suspicious osseous lesions are noted. A locule of extraluminal gas within the right hemipelvis is postsurgical. This is not unexpected. IMPRESSION: 1. Mild diffuse colonic wall thickening and pericolonic infiltration. Although pancolonic diverticulo sis, an infectious colitis is favored. Diverticulitis could appear similar but is considered less lik yoav. No abscess. No free air. 2. Expected findings following recent prostatectomy. Single locule of extraluminal gas with mild retr operitoneal infiltration and trace ascites. No fluid collection. 3. Multiple bilateral renal lesions. The majority, if not all, of these likely reflect cysts however a few measure above water attenuation, as described above. Comparison with prior imaging studies, if available, is recommended. In the absence of prior studies, an MRI of the kidneys could be obtained. Electronically signed by: Heron Rodriguez M.D. 04/01/2019 5:56 PM
[2019-04-01] MEDS: allopurinoL 300 MG TAB PO SCH (20:30)
[2019-04-01] MEDS: metroNIDAZOLE 500 MG TAB PO SCH (20:42)
[2019-04-02] MEDS: OXYCODONE HCL IR 5 MG TAB (IMMEDIATE RELEASE) PO PRN (00:59)
[2019-04-02 05:23] LABS: Basophils # (auto) 0.02 K/uL (0-0.2); Basophils % (auto) 0.2 %; Eosinophils # (auto) 0.12 K/uL (0-0.5); Eosinophils % (auto) 1.1 %; Hematocrit (blood only) 37.8 % (42-52); Hemoglobin 12.5 g/dL (14.0-18.0); Immature Granulocytes # (auto) 0.08 K/uL (0.00-0.02); Immature Granulocytes % (auto) 0.8 %; Lymphocytes # (auto) 0.46 K/uL (1.2-3.4); Lymphocytes % (auto) 4.4 %; Mean Corpuscular Hemoglobin 32.8 pg (25-34); Mean Corpuscular Hgb Conc 33.1 g/dL (32-36); Mean Corpuscular Volume 99.2 fL (80-100); Mean Platelet Volume 9.8 fL (7.4-10.4); Monocytes # (auto) 1.67 K/uL (0.11-0.59); Neutrophils % (auto) 77.5 %; Platelet Count 238 K/uL (130-400); RDW Coefficient of Variation 13.3 % (11.5-14.5); RDW Standard Deviation 47.8 fL (36.4-46.3); Red Blood Count 3.81 M/uL (4.7-6.1); White Blood Count 10.45 K/uL (4.8-10.8)
[2019-04-02] MEDS: LEVOTHYROXINE SODIUM 25 MCG TABLET PO SCH (05:45)
[2019-04-02 05:50] LABS: BUN Creatinine Ratio 11.1 (10-20); Calcium 8.8 mg/dl (8.5-10.1); Creatinine Clr Calc Pharmacy 30.3 ml/min; Est GFR (African American) 29.8; Est GFR (Non-African American) 25.7; Potassium 3.7 mmol/L (3.5-5.1)
[2019-04-02] MEDS: ONDANSETRON INJ 2 MG/ML 2 ML VIAL IV PRN ×2 (08:49→16:41)
[2019-04-02] MEDS: LOSARTAN POTASSIUM 50 MG TAB PO SCH (08:50)
[2019-04-02] MEDS: DOCUSATE SODIUM 100 MG CAP PO SCH ×2 (08:50→21:18)
[2019-04-02] MEDS: CIPROFLOXACIN 400 MG/200 ML BAG IV SCH (08:50)
[2019-04-02] MEDS: LACTOBACILLUS ACIDOPHILUS (FLORANEX) TAB PO SCH (08:50)
[2019-04-02] MEDS: SACCHAROMYCES BOULARDII 250 MG CAP PO SCH (08:51)
[2019-04-02] MEDS: ROSUVASTATIN CALCIUM 20 MG TAB PO SCH (08:51)
[2019-04-02] MEDS: PSYLLIUM 58.6% POWDER PACKET PO SCH (08:51)
[2019-04-02] MEDS: metroNIDAZOLE 500 MG TAB PO SCH ×2 (08:51→21:18)
[2019-04-02] MEDS: CHLORTHALIDONE 25 MG TAB PO SCH ×2 (08:51→10:00)
[2019-04-02] MEDS: HEPARIN SOD 5,000 UNIT/0.5 ML VIAL SQ SCH ×2 (08:52→21:19)
--- NOTE | 2019-04-02 09:58 | Urology Progress Note ---
Date of Service April 02, 2019 Assessment & Plan (1) Prostate cancer: s/p prostatectomy - overall, not thriving - fevers - yoon culture, CXR, abd CT yesterday - no definitive pathology treating for colitis now - CR jumped considerably today - check CK - hydrate aggressively - stop cipro - cont flagyl MoM - check labs this afternoon -phenergan for nausea - ambulate Subjective reports that he feels terrible nausea/vomiting low grade temps yesterday - CT: no fluid collections, no bowel obstruction, maybe colitis - had been starte on cipro yesterday - flagyl added after the CT CXR: atelectasis - Cr jumped considerably today - 2.42 - wbc 10 Physical Exam Physical Exam: appears uncomfortable incisions ok urine clear - somewhat concentrated this AM Results & Data Vital Signs (Past 12 Hours) Vital Signs Temp Pulse Resp BP BP Pulse Ox 04/02/19 07:15 36.7 C 78 18 142/79 H 93 04/01/19 23:34 37.6 C H 87 17 128/73 93 PG Care Time/CCT Total # of Minutes Spent Total Time Spent with Patient: Total time spent is greater than 50% in coordination of care (as documented) at patient's floor/unit and/or counseling patient:
[2019-04-02] MEDS ORDERED: PROMETHAZINE HCL 6.25 MG in SODIUM CHLORIDE 0.9% 50 ML IV PRN (10:09)
[2019-04-02] MEDS ORDERED: SODIUM CHLORIDE 0.9% 1000ML 500 ML IV ONE (10:10)
[2019-04-02] MEDS ORDERED: SODIUM CHLORIDE 0.9% 500 ML IV ONE (10:45)
[2019-04-02] MEDS: D5W AND 1/2NSS 1,000 ML IV SCH ×2 (11:29→19:45)
[2019-04-02 16:24] LABS: BUN Creatinine Ratio 10.6 (10-20); Calcium 8.7 mg/dl (8.5-10.1); Est GFR (African American) 23.6; Est GFR (Non-African American) 20.3
[2019-04-02 16:25] LABS: Potassium 4.4 mmol/L (3.5-5.1)
--- NOTE | 2019-04-02 18:49 | Urology Progress Note ---
Date of Service April 02, 2019 Subjective Repeat labs this afternoon show an increase in Cr to 2.9 from 2.4 (1.6 yesterday) - consult placed to nephrology - also discussed the patient with nephrology -hold losartan and chlorthalidone -decrease IVF slightly Possible ATN from NSAIDS shortly after surgery? Suspect Cr will continue to rise overnight - will have to monitor closely and support as appropriate. Results & Data Vital Signs (Past 12 Hours) Vital Signs Temp Pulse Resp BP BP Pulse Ox 04/02/19 14:57 36.4 C L 70 16 134/69 96 04/02/19 07:15 36.7 C 78 18 142/79 H 93 PG Care Time/CCT Total # of Minutes Spent Total Time Spent with Patient: Total time spent is greater than 50% in coor dination of care (as documented) at patient's floor/unit and/or counseling patient:
[2019-04-02] MEDS ORDERED: Nursing to Pharmacy Communication ONE (20:26)
[2019-04-02] MEDS: allopurinoL 300 MG TAB PO SCH (21:18)
[2019-04-03 00:52] LABS: Appearance Urine Cloudy (Clear); Bilirubin Urine Negative (Negative); Blood Urine 3+ (Negative); Color Urine Yellow; Glucose Urine UA Negative (Negative); Ketones Urine Negative (Negative); Leukocyte Esterase Urine Trace (Negative); Nitrite Urine Negative (Negative); Protein Urine 1+ (Negative); Specific Gravity Urine <= 1.005 (1.000-1.030); Urobilinogen Urine Negative (Negative); pH Urine 5.5 (4.5-7.5)
[2019-04-03 00:58] LABS: RBC Urine >30 /hpf (0-4)
[2019-04-03 01:00] LABS: Bacteria Urine 1+ (Negative); Mucus Urine Present (None Prsent)
[2019-04-03 01:03] LABS: Hyaline Casts Urine 0-5 /lpf (0-5)
[2019-04-03] MEDS: LEVOTHYROXINE SODIUM 25 MCG TABLET PO SCH (05:55)
[2019-04-03] MEDS: D5W AND 1/2NSS 1,000 ML IV SCH ×2 (06:00→18:05)
--- NOTE | 2019-04-03 07:45 | Urology Progress Note ---
Date of Service April 03, 2019 Assessment & Plan (1) Prostate cancer: s/p prostatectomy prolonged hospitalization BUDDY - nephrology consultation this AM help losartan and chlorthalidone await labs - UoP picked up last evening feeling slightly better has been on flagyl for possible colitis - uncertain this is necessary, may consider stopping after today Subjective Continues to struggle through his recovery, but subjectively is improved this AM no nausea overnight small BMs pain is ok still describes a general "ill feeling" Physical Exam Physical Exam: mildly uncomfortable appearing AAOx3 no resp distress RRR abd soft incisions appropriate urine clear mild edema - not clinically fluid overloaded Results & Data Vital Signs (Past 12 Hours) Vital Signs Temp Pulse Pulse Resp BP Pulse Ox 04/03/19 07:00 36.5 C 80 20 136/75 92 04/02/19 22:50 36.8 C 78 16 143/71 H 90 04/02/19 19:48 36.8 C 84 14 136/76 95 PG Care Time/CCT Total # of Minutes Spent Total Time Spent with Patient: Total time spent is greater than 50% in coordination of care (as documented) at patient's floor/unit and/or counseling patient:
[2019-04-03] MEDS: SACCHAROMYCES BOULARDII 250 MG CAP PO SCH (09:04)
[2019-04-03] MEDS: DOCUSATE SODIUM 100 MG CAP PO SCH ×2 (09:04→20:20)
[2019-04-03] MEDS: metroNIDAZOLE 500 MG TAB PO SCH ×2 (09:05→20:18)
[2019-04-03] MEDS: HEPARIN SOD 5,000 UNIT/0.5 ML VIAL SQ SCH ×2 (09:05→20:18)
[2019-04-03] MEDS: LACTOBACILLUS ACIDOPHILUS (FLORANEX) TAB PO SCH (09:05)
[2019-04-03] MEDS: ROSUVASTATIN CALCIUM 20 MG TAB PO SCH (09:05)
[2019-04-03 09:43] LABS: BUN Creatinine Ratio 12.4 (10-20); Calcium 8.5 mg/dl (8.5-10.1); Creatinine Clr Calc Pharmacy 31.4 ml/min; Est GFR (Non-African American) 26.8
[2019-04-03] MEDS ORDERED: POTASSIUM CHLORIDE 20 MEQ TABCR PO STA (10:04)
--- NOTE | 2019-04-03 10:10 | Nephrology Consultation ---
Date of Consultation April 03, 2019 Assessment & Plan (1) Prostate cancer: POD #6. Pain control appropriate. Flowers remains intact. (2) BUDDY (acute kidney injury): Clinically consistent with ATN in the setting of post op colitis and complicated by NSAID use. Non-oliguric. Electrolytes acceptable. Potassium replacement for hypokalemia started this am. Repeat metabolic profile this afternoon. Volume status euvolemic. DC IVF once oral intake appropriate. Medications are appropriate for kidney function at this time. Avoid NSAIDS. Continue to hold losartan and chlorthalidone. Baseline creatinine ~1.3 mg/dL. CT demonstrated findings consistent with CKD including renal cysts. No evidence of obstruction. UA/microscopy reviewed this morning. CK normal. Document I/O's. Repeat metabolic profile this afternoon and tomorrow AM. History of Present Illness Reason for Consultation: BUDDY Requesting Physician: Ian Gracia MD Attending Physician: Ian Gracia MD History of Present Illness Mr.Francis Fung is a 73-year-old male with prostate cancer, hypertension, hyperlipidemia, gout, and CKD III. Baseline creatinine is approximately 1.3 mg/dL. Keith follows with his PCP, Dr. Zambrano. The patient has never been previously evaluated by a phlebotomist. Keith was seen and evaluated this morning in consultation regarding acute kidney injury. Creatinine appears to have peaked at 2.9 mg/dL yesterday. The patient is POD #6 s/p robot assist laparoscopic prostatectomy. He is no- oliguric. He feels well. Fevers were low grade on POD #4. He has had some intermittent persistent loose stool. Appetite is fair. BP has been stable. Losartan and chlorthalidone have been held. Flowers remains intact. CT scan from 04/01 reviewed today. Urine studies demonstrate persistent hematuria. Cultures have been negative. Keith remains on antibiotics for colitis. Allergies Allergy/AdvReac Type Severity Reaction Status Date / Time Iodinated Contrast Media AdvReac Unknown PT HAS Verified 04/01/19 19:03 CHRONIC KIDNEY DISEASE NSAIDS (Non-Steroidal AdvReac Unknown PT HAS Verified 03/28/19 07:48 Anti-Inflamma CHRONIC KIDNEY DISEASE Home Medications Home Medications Medication Instructions Recorded Confirmed Type Bifidobacterium infantis 4 mg 4 mg PO DAILY 11/02/18 03/28/19 History capsule allopurinol 300 mg tablet 300 mg PO HS 11/02/18 03/28/19 History chlorthalidone 25 mg tablet 25 mg PO QAM 11/02/18 03/06/19 History losartan 50 mg tablet 50 mg PO HS 11/02/18 03/28/19 History rosuvastatin 20 mg tablet 20 mg PO HS 11/02/18 03/28/19 History tamsulosin 0.4 mg capsule 0.4 mg PO HS 11/02/18 03/28/19 History amlodipine 5 mg PO HS 03/06/19 03/28/19 History levothyroxine 25 mcg PO QAM 03/06/19 03/06/19 History psyllium seed (sugar) [Metamucil 1 tbsp PO DAILY 03/06/19 03/28/19 History (sugar)] ciprofloxacin HCl 500 mg PO BID 3 Days #6 tab 03/30/19 Rx docusate sodium [Colace] 100 mg PO BID #60 cap 03/30/19 Rx Patient History Medical History Chronic kidney disease STAGE 3 Colon polyp (Acute) Diverticula of colon (Acute) Gout (Acute) HX OF HTN (hypertension) (Acute) Hyperlipidemia Hypothyroidism IBS (irritable bowel syndrome) (Acute) Prostate cancer (Acute) Surgical History H/O umbilical hernia repair (Acute) surgery 2011 History of cardiac cath 15 YR AGO , MELISSA, D/T FAMILY HX - NO FINDINGS History of colonoscopy History of endoscopy Hx of tonsillectomy (Acute) surgery age 6 Family History Mother , age 77 CHF (congestive heart failure) Father , age 69 Myocardial infarction Brother , age 76 Lung cancer " Never Smoked " Family history of cancer Brother Prostate cancer prostate seed implant 10 yrs ago Lupus Myocardial infarction Sister Heart disease bypass surgery times 2 Son Gout Hypertension Social History Preferred Language: Brazilian Communication Ability: Effective Visual Impairment: No Limitations Hearing Ability: Hard of Hearing 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 Required: No Beliefs That Will Affect Care: None marital status: Current Living Situation: Family current occupational status: employed 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 Feels Safe at Home: Yes Smoking Status: Never smoker Hx Alcohol Use: Yes Alcohol type: beer Alcohol Intake Frequency: Weekly Hx Substance Use: No Childhood Exposure to Second-Hand Smoke: No Review of Systems Review of Systems: All systems reviewed & are unremarkable except as noted in HPI & below Physical Exam Constitutional: well developed; no acute distress Eyes: no scleral abnormality and no corneal abnormality ENMT: Mouth: no oral mucosal abnormality and oral mucous membranes not dry Neck: normal visual inspection and trachea midline Respiratory: normal respiratory effort Auscultation: lungs clear to auscultation bilaterally Cardiovascular: Rate/Rhythm: regular rate Heart Sounds: normal S1 and normal S2 Extremities: no edema Gastrointestinal (Abdomen): Inspection/Auscultation: + abdomen distended Percussion/Palpation: + abdomen tender; no guarding Musculoskeletal: Extremities: no cyanosis and no clubbing Skin: normal turgor; no lesions Neurologic: Motor/Sensory: no tremor and no asterixis Psychiatric: Orientation: alert and oriented x 3 Results & Data Vital Signs (Past 12 Hours) Vital Signs Temp Pulse Resp BP Pulse Ox 04/03/19 07:00 36.5 C 80 20 136/75 92 04/02/19 22:50 36.8 C 78 16 143/71 H 90 PG Care Time/CCT Total # of Minutes Spent Total Time Spent with Patient: Total time spent is greater than 50% in coordination of care (as documented) at patient's floor/unit and/or counseling patient:
[2019-04-03] MEDS: PSYLLIUM 58.6% POWDER PACKET PO SCH (11:26)
[2019-04-03 16:41] LABS: BUN Creatinine Ratio 12.4 (10-20); Calcium 8.4 mg/dl (8.5-10.1); Creatinine Clr Calc Pharmacy 31.5 ml/min; Est GFR (African American) 31.2; Est GFR (Non-African American) 26.9; Magnesium 2.5 mg/dl (1.8-2.4); Potassium 3.6 mmol/L (3.5-5.1)
[2019-04-03] MEDS: allopurinoL 300 MG TAB PO SCH (20:19)
[2019-04-03] MEDS: POTASSIUM CHLORIDE 20 MEQ TABCR PO SCH (20:19)
[2019-04-04] MEDS: LEVOTHYROXINE SODIUM 25 MCG TABLET PO SCH (05:43)
[2019-04-04] MEDS: D5W AND 1/2NSS 1,000 ML IV SCH (05:43)
[2019-04-04 06:45] LABS: BUN Creatinine Ratio 13.6 (10-20); Calcium 8.3 mg/dl (8.5-10.1); Creatinine Clr Calc Pharmacy 39.9 ml/min; Est GFR (African American) 41.5; Est GFR (Non-African American) 35.8; Potassium 3.3 mmol/L (3.5-5.1)
[2019-04-04] MEDS ORDERED: POTASSIUM CHLORIDE 20 MEQ TABCR PO STA (07:14)
[2019-04-04] MEDS: DOCUSATE SODIUM 100 MG CAP PO SCH (08:41)
[2019-04-04] MEDS: ROSUVASTATIN CALCIUM 20 MG TAB PO SCH (08:42)
[2019-04-04] MEDS: POTASSIUM CHLORIDE 20 MEQ TABCR PO SCH (08:42)
[2019-04-04] MEDS: metroNIDAZOLE 500 MG TAB PO SCH (08:42)
[2019-04-04] MEDS: LACTOBACILLUS ACIDOPHILUS (FLORANEX) TAB PO SCH (08:42)
[2019-04-04] MEDS: HEPARIN SOD 5,000 UNIT/0.5 ML VIAL SQ SCH (08:43)
[2019-04-04] MEDS: SACCHAROMYCES BOULARDII 250 MG CAP PO SCH (08:43)
--- NOTE | 2019-04-04 09:17 | Urology Progress Note ---
Date of Service April 04, 2019 Assessment & Plan (1) Prostate cancer: Kidney function improving appropriately, creatinine has declined substantially in the past 24 hours. Urinating adequately Reviewed pathologyorgan confined disease, González 7 Overall, I think he is ready for discharge home. Presuming the weather will allow we will plan to discharge him home this afternoon. Subjective Seems to have really turned a corner overnight. He subjectively feels drastically improved. He is ambulatory. He has no pain. He has moved his bowels. Catheter was removed this morning and he has been urinating adequately. Overall feels that he is near ready for discharge home. Physical Exam Physical Exam: Incisions appropriate, urine clear No volume overload Results & Data Vital Signs (Past 12 Hours) Vital Signs Temp Pulse Resp BP Pulse Ox 04/04/19 07:30 36.6 C 65 18 133/75 90 04/03/19 22:38 36.7 C 72 16 145/74 H 93 PG Care Time/CCT Total # of Minutes Spent Total Time Spent with Patient: Total time spent is greater than 50% in coordination of care (as documented) at patient's floor/unit and/or counseling patient:
--- NOTE | 2019-04-04 09:45 | Nephrology Progress Note ---
Date of Service April 04, 2019 Assessment & Plan (1) Prostate cancer: POD #7. Pain control appropriate. Flowers removed. Voiding appropriately. [place], grade 2 (chanel 7) confined to prostate with good margins. (2) BUDDY (acute kidney injury): Clinically consistent with ATN in the setting of post op colitis and complicated by NSAID use. Non-oliguric. Electrolytes acceptable. Creatinine improving. May DC IVF. Repeat metabolic profile within 1 week of discharge. Fax results to nephrology clinic [phone]. Continue K+ replacement: KCl 20 mEq BID for another 3 days. Continue to hold chlorthalidone and losartan for now. Arrange follow up in the nephrology clinic within next 3 weeks. Baseline creatinine ~1.3 mg/dL. CT demonstrated findings consistent with CKD including renal cysts. No evidence of obstruction. Subjective No acute events overnight. Overall feels well. Hopes to go home today. Flowers removed and voiding without difficulty. Review of Systems Review of Systems: All systems reviewed & are unremarkable except as noted in HPI & below Physical Exam Constitutional: well developed; no acute distress Eyes: no scleral abnormality and no corneal abnormality ENMT: Mouth: no oral mucosal abnormality and oral mucous membranes not dry Neck: normal visual inspection and trachea midline Respiratory: normal respiratory effort Auscultation: lungs clear to auscultation bilaterally Cardiovascular: Rate/Rhythm: regular rate Heart Sounds: normal S1 and normal S2 Extremities: no edema Gastrointestinal (Abdomen): Inspection/Auscultation: + abdomen distended Percussion/Palpation: + abdomen tender; no guarding Musculoskeletal: Extremities: no cyanosis and no clubbing Skin: normal turgor; no lesions Neurologic: Motor/Sensory: no tremor and no asterixis Psychiatric: Orientation: alert and oriented x 3 Results & Data Vital Signs (Past 12 Hours) Vital Signs Temp Pulse Resp BP Pulse Ox 04/04/19 07:30 36.6 C 65 18 133/75 90 04/03/19 22:38 36.7 C 72 16 145/74 H 93 Laboratory Results Laboratory Results - last 24 hr 04/03/19 04/04/19 15:54 05:32 Sodium 138 137 Potassium 3.6 D 3.3 L Chloride 103 106 Carbon Dioxide 30 29 Anion Gap 5.0 2.0 L BUN 29 H 25 H Creatinine 2.33 H 1.84 H D Est Cr Clr Drug Dosing 31.5 39.9 Est GFR ( Amer) 31.2 41.5 Est GFR (Non-Af Amer) 26.9 35.8 BUN/Creatinine Ratio 12.4 13.6 Glucose 101 H 99 Calcium 8.4 L 8.3 L Magnesium 2.5 H PG Care Time/CCT Total # of Minutes Spent Total Time Spent with Patient: Total time spent is greater than 50% in coordination of care (as documented) at patient's floor/unit and/or counseling patient:
[2019-04-04] MEDS: PSYLLIUM 58.6% POWDER PACKET PO SCH (11:05)
--- NOTE | 2019-04-04 12:33 | Discharge Summary ---
Date of Service April 04, 2019 Admission HPI Per Admitting Provider Presenting for prostatectomy as definitive treatment for prostate cancer Principal Diagnosis Prostate cancer Discharge Data Allergies Allergy/AdvReac Type Severity Reaction Status Date / Time Iodinated Contrast Media AdvReac Unknown PT HAS Verified 04/01/19 19:03 CHRONIC KIDNEY DISEASE NSAIDS (Non-Steroidal AdvReac Unknown PT HAS Verified 03/28/19 07:48 Anti-Inflamma CHRONIC KIDNEY DISEASE Consultations 04/02/19 18:18 Consult Nephrology Routine Procedures Performed Operation Date: 03/28/19 08:35 Actual Procedures p Laparoscopic Robotic Assisted Prostatectomy,Bilateral Pevlic Lymph Node Disection - Brad Gracia MD Ordered Studies 04/01/19 15:32 CT abd pelvis wo con Urgent Hospital Course (1) Prostate cancer: Patient underwent robotic prostatectomydetails of this procedure as previously described in the operative report. In summary, he initially tolerated the procedure very well. His recovery, however, was somewhat slow. He had diffuse abdominal pain for the first 2 days postoperatively. He then developed some nausea. Never really became distended, but he failed to progress. We obtained imaging on day 4 which revealed no fluid collections, no bowel obstruction, no ileus. Possible mild colitis. He was treated for this with Flagyl and Cipro. Unfortunately, his creatinine began to elevate from baseline of 1.3-2.4 and then 2.9. I stopped his Cipro and all NSAIDs. Fortunately, he resolved with hydration and observation. Nephrology did evaluate him and contribute to his planning. He passed a voiding trial and is currently feeling quite well. He has relatively good urinary control. He is not requiring pain medication. His blood pressure is stable, he is afebrile and his labs are appropriate. His kidney function has corrected. Total Time Total Time Spent Total Time Spent (In Minutes): 30 Total Time Includes: Examination of the Patient and Discharge Planning Discharge Plan Discharge Items Patient Disposition: Home - Self-Care Reason For Visit: Prostate Cancer Discharge Diagnosis: prostate cancer Condition on Discharge: Good Activity: Per Instructions section Lifting: No more than 25 pounds Bathing: Keep incision dry Sexual Activity: Wait until after follow-up appointment Exercise/Sports: Wait until after follow-up appointment Driving/Machine Use: When you feel you can safely control your vehicle, you may resume driving. Non-emergency contact: Urologist Call non-emergency contact if: your pain is concerning for you, your wound has increased redness, your wound has increased drainage and your wound pain has increased Follow-up/Referrals: Jose Zambrano [Primary Care Provider] - Diet: Regular Addtl Attending Provider Instructions: Please take all medications as prescribed and keep all follow-ups as scheduled. Please call our office at [phone] with any questions, concerns or need to reschedule appointments for any reason. We are happy to assist you Activity: We recommend having someone with you for the first few days after surgery to help care for you. For the first 2 weeks after surgery, we would like you to get up and walk around your house. However, we recommend limit physical activity that would increase your heart rate. This will allow your body to rest and heal. Take naps if you feel tired. Don't lift anything heavier than 10 pounds, mow the law or ride a bicycle until your follow-up appointment. Please avoid long car rides. Home Care: Unless directed otherwise, drink 6 to 8 glasses of water a day (enough to keep your urine light colored). This will also help keep a healthy flow of urine. We recommend using a stool softener for the first two weeks to avoid constipation. Follow-up Your follow up appointments for having your catheter removed, and follow up with your physician should already be scheduled. If you have any questions regarding this, please contact our office. Your final pathology report will be discussed at your physician follow-up appointment. Call [facility] at [phone] right away if you have any of the following: Chest pain or trouble breathing (call 911 or go to the hospital) Fever of 101F or higher, uncontrolled vomiting Heavy bleeding, clots, or bright red blood from the catheter Catheter that falls out or stops draining Foul-smelling discharge from your catheter Redness, swelling, warmth, or increased pain at your incision site Drainage, pus, or bleeding from your incision PLEASE HOLD YOUR LOSARTAN AND CHLORTHALIDONE FOR THE TIME BEING. IF YOUR BLOOD PRESSURE RISES, WE MAY RESUME THESE AT THE TIME OF YOUR FOLLOW UP APPOINTMENT. PLEASE HAVE BLOOD WORK COLLECTED PRIOR TO YOUR FOLLOW UP APPOINTMENT Pending Studies at Discharge: Yes (pathology ) Stand-Alone Forms: My [facility] fotopedia, Smoking Cessation Medications and DC Order Prescriptions: New docusate sodium [Colace] 100 mg capsule 100 mg PO BID Qty: 60 RF: 0 Continued allopurinol 300 mg tablet 300 mg PO HS RF: 0 rosuvastatin 20 mg tablet 20 mg PO HS RF: 0 Align 4 mg capsule 4 mg PO DAILY RF: 0 Metamucil (sugar) Powder 1 tbsp PO DAILY RF: 0 amlodipine 5 mg Tablet 5 mg PO HS RF: 0 levothyroxine 25 mcg Tablet 25 mcg PO QAM RF: 0 Discontinued tamsulosin 0.4 mg capsule 0.4 mg PO HS RF: 0 losartan 50 mg tablet 50 mg PO HS RF: 0 chlorthalidone 25 mg tablet 25 mg PO QAM RF: 0 Discharge Orders: Discharge Order (Routine); Ordered 04/04/19 Ordered By: Brad Gracia Admission Data Admit Date/Time: 03/28/19 12:48 Attending Provider: Brad Gracia Admit Provider: Brad Gracia Primary Care Provider: Jose Zambrano Other Providers: Colin Aguilera
== END 2019-04-04 14:15 | disposition home or self-care (01) | DRG 707 ==
LOC: ASU 07:17 → 3W 12:48

== ENCOUNTER 2023-03-04 21:55 | Inpatient (IN) ==
[2023-03-04 22:32] LABS: Basophils # (auto) 0.02 K/uL (0.00-0.20); Basophils % (auto) 0.6 %; Eosinophils # (auto) 0.06 K/uL (0.00-0.50); Eosinophils % (auto) 1.7 %; Hematocrit (blood only) 25.6 % (42.0-52.0); Hemoglobin 8.2 g/dl (14.0-18.0); Immature Granulocytes # (auto) 0.02 K/uL (0.01-0.20); Immature Granulocytes % (auto) 0.6 %; Lymphocytes % (auto) 8.3 %; Mean Corpuscular Hemoglobin 31.4 pg (25.0-34.0); Mean Corpuscular Volume 98.1 fL (80.0-100.0); Monocytes % (auto) 5.6 %; Neutrophils % (auto) 83.2 %; RDW Standard Deviation 49.6 fL (36.4-46.3); Red Blood Count 2.61 M/uL (4.70-6.10)
[2023-03-04 22:49] LABS: Albumin Globulin Ratio 0.9 (0.9-2); Albumin Level 3.2 gm/dl (3.4-5.0); BUN Creatinine Ratio 11.1 (10-20); Bilirubin,Total 0.9 mg/dl (0.2-1.0); Calcium 9.1 mg/dl (8.6-10.3); Creatinine Clr Calc Pharmacy 21.3 ml/min; Est GFR (African American) 21.1 ml/min; Est GFR (Non-African American) 18.2 ml/min; Globulin 3.6 gm/dl (2.5-4.0); Potassium 3.3 mmol/L (3.5-5.1); Total Protein 6.8 gm/dl (6.0-8.3)
[2023-03-04 22:58] LABS: Partial Thromboplastin Ratio 1.1; Partial Thromboplastin Time 30.8 Seconds (21.0-31.0); Prothrombin Time 10.9 Seconds (9.0-12.0)
[2023-03-04 23:38] LABS: Adenovirus PCR Not Detected (NotDetected); Bordetella parapertussis PCR Not Detected (NotDetected); Bordetella pertussis PCR Not Detected (NotDetected); Chlamydia pneumoniae PCR Not Detected (NotDetected); Coronavirus 229E PCR Not Detected (NotDetected); Coronavirus CoV-2 (COVID19)PCR Not Detected (NotDetected); Coronavirus HKU1 PCR Not Detected (NotDetected); Coronavirus NL63 PCR Not Detected (NotDetected); Coronavirus OC43PCR Not Detected (NotDetected); Human Metapneumovirus PCR Not Detected (NotDetected); Influenza A PCR Not Detected (NotDetected); Influenza B PCR Not Detected (NotDetected); Mycoplasma pneumoniae PCR Not Detected (NotDetected); Parainfluenza Virus 1 PCR Not Detected (NotDetected); Parainfluenza Virus 2 PCR Not Detected (NotDetected); Parainfluenza Virus 3 PCR Not Detected (NotDetected); Parainfluenza Virus 4 PCR Not Detected (NotDetected); Respiratory Syncytial VirusPCR Not Detected (NotDetected); Rhinovirus/Enterovirus PCR Not Detected (NotDetected)
[2023-03-04] MEDS ORDERED: cefTRIAXone SODIUM 2,000 MG/50 ML BAG IV STA (23:53)
[2023-03-04] MEDS ORDERED: SODIUM CHLORIDE 0.9% 1,000 ML IV ONE (23:57)
--- NOTE | 2023-03-04 23:57 | Emergency Department Note ---
Impression & Plan Hypoxia, SOB (shortness of breath), Anemia, BUDDY (acute kidney injury), Fever, Elevated troponin ED Provider Note NAME: ELLE CORTÉS AGE: 77 SEX: M : 1945 ARRIVES VIA: Walk-In INFORMANT: [Patient][] ED PROVIDER(S): [Clark Donald MD] CHIEF COMPLAINT: Shortness of breath, fever HISTORY OF PRESENT ILLNESS: The patient is a 77-year-old male who has had an ongoing cough for 2-1/2 months. He has been having issues with a dropping hemoglobin and a rising creatinine. The patient has seen nephrology. The patient's O2 saturation tonight was 88%, he has always been in the 90s. He felt some heaviness across his chest and a bit short of breath. The fever was new today as well. There has been no urinary complaint. No abdominal or flank pain. He has not noticed any rash. He is uncertain if he has suffered any recent tick bites. The patient's stool has been brown in color, there has been no rectal bleeding. PMHx/PSHx/Social Hx: See Below PHYSICAL EXAM: GENERAL: Patient is in no acute distress. HEENT: No acute trauma, normocephalic atraumatic, mucous membranes moist, no nasal congestion. NECK: No stridor, no adenopathy, no meningismus, trachea is midline. LUNGS: Clear to auscultation bilaterally, no wheeze, no rhonchi, breath sounds equal. HEART: Without murmurs gallops or rubs, regular rate and rhythm. ABDOMEN: Soft, nontender, no peritonitis. EXTREMITIES: No cyanosis, full range of motion of all the joints without pain or difficulty. NEUROLOGIC: Oriented x 3, no acute motor or sensory deficits, no focal weakness. SKIN: No jaundice, no diaphoresis. Warm to the touch. DIFFERENTIAL DIAGNOSIS: Tickborne illness, Lyme disease, dehydration, electrolyte imbalance, UTI, viral illness, bacteremia, among others. EMERGENCY DEPARTMENT PROCEDURES: MEDICAL DECISION MAKING: There is a lower white blood cell count. The patient is anemic with a hemoglobin of 8.2. Today's hemoglobin is lower than previous testing. There is a lower platelet count of 113. No coagulopathy. Potassium is slightly low at 3.3. Creatinine is elevated above his typical baseline, the creatinine today is over 3. Lactic acid level is not elevated making severe sepsis less likely. No concerning liver enzyme elevation. No evidence for issues with the thyroid. Cardiac enzyme testing x1 is slightly elevated. This troponin elevation could be secondary to cardiac injury or potentially just mismatch from his dyspnea and anemia. Anaplasmosis and Babesia testing is currently pending. Lyme disease testing returned negative. Respiratory bio fire returned negative. Chest x-ray does not show pneumonia or CHF. Urinalysis result is pending. On exam, patient was resting comfortably. He was not in any distress. His skin was warm to the touch. The patient given IV saline, 1 L. He was given IV ceftriaxone for empiric antibiotic coverage. The patient's findings today warrant a hospital stay. He is quite anemic, he has findings of acute kidney injury, he has an elevated troponin. He felt some chest discomfort earlier today and was found to be febrile by his . At this point, the cause for his entire presentation is unclear. I am concerned though about the possibility of tickborne disease. Further work-up is warranted. I spoke with the patient and case management, the on-call hospitalist was consulted. Prior/Outside records/notes reviewed: Nephrology note from 02/17/2023 discussing his acute kidney injury and need for ongoing work-up. ECG per my interpretation: Indication was shortness of breath and some chest heaviness. The ECG shows what appears to be a normal sinus rhythm with a rate of 60. There is no ST elevation, no PVCs. The QTc is 448. Continuous Cardiac Monitoring per my interpretation: An order was placed for continuous cardiac monitoring. The monitor shows a rate of 56 with sinus bradycardia. Imaging/x-ray results per my interpretation: Chest x-ray does not show CHF, pneumonia or concerning cardiomegaly. Chronic Medical/Social conditions affecting care: Renal failure Care/Management discussed with: Case management, the on-call hospitalist. Level of care consideration(s): After review of the information above and other included data: --I believe the patient requires escalation of care to admission Critical Care Note: I have personally spent 41 minutes of critical care time in the direct management of this patient. This includes bedside care, interpretation of diagnostic studies, and testing, discussion with consultants, patient, and family members, and other required patient management activities. This 41 minutes is in excess of all separately billable procedures. DISPOSITION: Admission Past Med/Surg History Medical History Diverticulosis CAD (coronary artery disease) Moderate, non-obstructive CAD per 2006 cardiac cath per cardiology records BUDDY (acute kidney injury) Hypothyroidism Chronic kidney disease Stage III Hyperlipidemia Prostate cancer Dx 2019, s/p prostatectomy IBS (irritable bowel syndrome) Gout Hx HTN (hypertension) Surgical History H/O umbilical hernia repair History of cardiac cath History of colonoscopy History of endoscopy Hx of prostatectomy Hx of tonsillectomy Family History Mother , age 77 CHF (congestive heart failure) Father , age 69 Myocardial infarction Brother , age 76 Lung cancer " Never Smoked " Family history of cancer Brother Prostate cancer prostate seed implant 10 yrs ago Lupus Myocardial infarction Sister Heart disease bypass surgery times 2 Son Gout Hypertension Social History Smoking Status: Never smoker Second Hand Exposure: No; Do You Dip or Chew Tobacco: No; Hx Alcohol Use: Yes Alcohol type: beer Hx Substance Use: No Preferred Language: Turkish Communication Ability: Effective Visual Impairment: No Limitations Hearing Ability: Hard of Hearing Practice Support Specialist Required: No Beliefs That Will Affect Care: None marital status: Current Living Situation: Spouse current occupational status: employed 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 Feels Safe at Home: Yes Childhood Exposure to Second-Hand Smoke: No Assistive Devices: Glasses Allergies Allergies Allergy/AdvReac Type Severity Reaction Status Date / Time Iodinated Contrast Media AdvReac Unknown Avoids d/t Verified 03/05/23 00:09 CKD NSAIDS (Non-Steroidal AdvReac Unknown Avoids d/t Verified 03/05/23 00:09 Anti-Inflamma CKD trazodone AdvReac Unknown BUDDY Verified 03/05/23 00:09 Home Meds Home Medications Medication Instructions Recorded Confirmed Bifidobacterium infantis 4 mg 4 mg PO DAILY 11/02/18 03/05/23 capsule (Align) allopurinol 300 mg tablet 300 mg PO HS 11/02/18 03/05/23 levothyroxine 25 mcg tablet 25 mcg PO QAM 03/06/19 03/05/23 psyllium seed (sugar) oral powder 1 tbsp PO DAILY 03/06/19 03/05/23 (Metamucil (sugar) oral powder) losartan 50 mg tablet 50 mg PO BID 05/17/19 03/05/23 pantoprazole 40 mg tablet,delayed 40 mg PO DAILY 10/17/20 03/05/23 release tadalafil 5 mg tablet (Cialis) 5 mg PO DAILY 10/17/20 03/05/23 vitamins A,C,C-xzox-wsoryg 4,296 1 cap PO BID 11/14/20 03/05/23 mcg-226 mg-90 mg capsule (PreserVision AREDS) hydralazine 100 mg tablet 200 mg PO BID 01/29/21 03/05/23 metoprolol succinate 50 mg 25 mg PO HS 05/13/21 03/05/23 tablet,extended release 24 hr rosuvastatin 40 mg tablet 40 mg PO HS 05/13/21 03/05/23 isosorbide mononitrate 30 mg 30 mg PO DAILY 02/17/23 03/05/23 tablet,extended release 24 hr ergocalciferol (vitamin D2) 1,250 1,250 mcg PO WK 03/05/23 03/05/23 mcg (50,000 unit) capsule Previous Rx's Medication Instructions Recorded albuterol sulfate 90 mcg/actuation 2 inh inhalation Q6H #18 grams 05/13/21 aerosol inhaler solifenacin 10 mg tablet (Vesicare) 10 mg PO DAILY #90 tabs 01/29/23 rosuvastatin 10 mg tablet 10 mg PO DAILY #30 tabs 02/22/23 Results & Data (ED) Vital Signs Vital Signs - 24 hr 03/04/23 22:01 03/04/23 22:50 03/04/23 22:51 Temperature 37.1 C Temperature Source Oral Pulse Rate 66 Pulse Rate [Apical] 62 Pulse Rhythm Regular Pulse Rhythm [Apical] Regular Pulse Strength Normal Pulse Strength [Apical] Normal Respiratory Rate 18 19 Respiratory Effort / Characteristics Non-Labored Spontaneous SOB on Exertion Respiratory Depth Normal Normal Respiratory Pattern Regular Blood Pressure 149/79 H Blood Pressure [Right Arm] 159/106 H Blood Pressure Mean 102 Blood Pressure Mean [Right Arm] 123 Blood Pressure Position Sitting Pulse Oximetry 96 94 94 Oxygen Delivery Method Room Air Room Air Room Air Sepsis Recent Fever Within 48 Hours Yes Sepsis New/Unexplained Change in Mental Status N/A Sepsis Action Taken by Nursing No Action Required 03/04/23 22:55 Temperature Temperature Source Pulse Rate 56 L Pulse Rate [Apical] Pulse Rhythm Pulse Rhythm [Apical] Pulse Strength Pulse Strength [Apical] Respiratory Rate Respiratory Effort / Characteristics Respiratory Depth Respiratory Pattern Blood Pressure Blood Pressure [Right Arm] Blood Pressure Mean Blood Pressure Mean [Right Arm] Blood Pressure Position Pulse Oximetry Oxygen Delivery Method Sepsis Recent Fever Within 48 Hours Sepsis New/Unexplained Change in Mental Status Sepsis Action Taken by Shelter Medications Current Medication List: was personally reviewed by me Laboratory Data Attestation: I reviewed the patient's lab results. 03/04/23 22:10 03/04/23 22:10 Lab Results 03/04/23 03/04/23 03/05/23 Range/Units 22:00 22:10 00:21 WBC 3.60 L (4.8-10.8) K/ul RBC 2.61 L (4.70-6.10) M/uL Hgb 8.2 L (14.0-18.0) g/dl Hct 25.6 L (42.0-52.0) % MCV 98.1 (80.0-100.0) fL MCH 31.4 (25.0-34.0) pg MCHC 32.0 (32.0-36.0) g/dL RDW Std Deviation 49.6 H (36.4-46.3) fL RDW Coeff of Crow 14.0 (11.5-14.5) % Plt Count 113 L (130-400) K/uL MPV 12.0 (9.4-12.4) fL Immature Gran % (Auto) 0.6 % Neut % (Auto) 83.2 % Lymph % (Auto) 8.3 % Miller % (Auto) 5.6 % Eos % (Auto) 1.7 % Baso % (Auto) 0.6 % Neut # (Auto) 3.00 (1.40-6.50) K/uL Lymph # (Auto) 0.30 L (1.20-3.40) K/uL Miller # (Auto) 0.20 (0.11-0.59) K/uL Eos # (Auto) 0.06 (0.00-0.50) K/uL Baso # (Auto) 0.02 (0.00-0.20) K/uL Immature Gran # (Auto) 0.02 (0.01-0.20) K/uL PT 10.9 (9.0-12.0) Seconds INR 1.0 (0.9-1.1) APTT 30.8 (21.0-31.0) Seconds PTT Ratio 1.1 Sodium 137 (136-145) mmol/L Potassium 3.3 L (3.5-5.1) mmol/L Chloride 106 (98-107) mmol/L Carbon Dioxide 24 (21-32) mmol/L Anion Gap 7 (3-11) BUN 35 H (6-23) mg/dl Creatinine 3.15 H (0.6-1.4) mg/dl Est Cr Clr Drug Dosing 21.3 ml/min Est GFR ( Amer) 21.1 ml/min Est GFR (Non-Af Amer) 18.2 ml/min BUN/Creatinine Ratio 11.1 (10-20) Glucose 97 (70-99(Fasting)) mg/dl Lactate 0.6 (0.4-2.0) mmol/L Calcium 9.1 (8.6-10.3) mg/dl Magnesium 1.9 (1.7-2.4) mg/dl Total Bilirubin 0.9 (0.2-1.0) mg/dl AST 17 (13-39) U/L ALT 17 (7-52) U/L Alkaline Phosphatase 56 (34-104) U/L Troponin I High Sens 34.0 H 32.2 H (0-20) pg/ml Total Protein 6.8 (6.0-8.3) gm/dl Albumin 3.2 L (3.4-5.0) gm/dl Globulin 3.6 (2.5-4.0) gm/dl Albumin/Globulin Ratio 0.9 (0.9-2) TSH 2.081 (0.300-4.500) uIu/ml Adenovirus (PCR) Not Detected (NotDetected) Anaplasma Smear Cancelled Babesia Smear Cancelled B. pertussis DNA (PCR) Not Detected (NotDetected) B.parapertussis DNA PCR Not Detected (NotDetected) Lyme Disease IgG Ab Negative (Negative) Lyme Disease IgM Ab Negative (Negative) C. pneumoniae DNA (PCR) Not Detected (NotDetected) Coronavirus OC43 (PCR) Not Detected (NotDetected) Coronavirus HKU1 (PCR) Not Detected (NotDetected) Coronavirus 229E (PCR) Not Detected (NotDetected) SARS-CoV-2 (PCR) Not Detected (NotDetected) Coronavirus NL63 (PCR) Not Detected (NotDetected) Human Metapneumovir PCR Not Detected (NotDetected) Influenza Type A (PCR) Not Detected (NotDetected) Influenza Type B (PCR) Not Detected (NotDetected) M. pneumoniae (PCR) Not Detected (NotDetected) Parainfluenza 1 (PCR) Not Detected (NotDetected) Parainfluenza 2 (PCR) Not Detected (NotDetected) Parainfluenza 3 (PCR) Not Detected (NotDetected) Parainfluenza 4 (PCR) Not Detected (NotDetected) RSV (PCR) Not Detected (NotDetected) Entero/Rhino (PCR) Not Detected (NotDetected) Administered Medications Discontinued Medications Ceftriaxone Sodium (Rocephin) 2,000 mg in 50 mls @ 100 mls/hr IV NOW STA Stop: 03/05/23 00:22 Last Admin: 03/05/23 00:40 Dose: 100 mls/hr Documented By: KERI Sodium Chloride (Nss) 1,000 mls @ 999 mls/hr IV .Q1H1M ONE Stop: 03/05/23 00:57 Last Admin: 03/05/23 00:40 Dose: 999 mls/hr Documented By: KERI Discharge Plan Visit Data Chief Complaint: Shortness of Breath/Dyspnea Stated Complaint: SOB, LOW OXYGEN ED Provider: Clakr Donald Discharge Problem: Hypoxia, SOB (shortness of breath), Anemia, BUDDY (acute kidney injury), Fever, Elevated troponin Patient Disposition: Admitted As Inpatient Condition: Fair Forms Stand Alone Forms: My [facility] Prescriptions Prescriptions: No Action allopurinol 300 mg tablet 300 mg PO HS Align 4 mg capsule 4 mg PO DAILY solifenacin [Vesicare] 10 mg tablet 10 mg PO DAILY Qty: 90 1RF rosuvastatin 10 mg tablet 10 mg PO DAILY Qty: 30 3RF Rx Instructions: stop rosuvastatin 40 mg daily and start reduced dose 10 mg daily hydralazine 100 mg tablet 200 mg PO BID Rx Instructions: 200 mg IN AM AND 200mg IN afternoon; isosorbide mononitrate 30 mg tablet extended release 24 hr 30 mg PO DAILY losartan 50 mg tablet 50 mg PO BID Metamucil (sugar) Powder 1 tbsp PO DAILY levothyroxine 25 mcg Tablet 25 mcg PO QAM pantoprazole 40 mg tablet,delayed release (DR/EC) 40 mg PO DAILY tadalafil [Cialis] 5 mg tablet 5 mg PO DAILY PreserVision AREDS 14320-226-200 [id number] Capsule 1 cap PO BID rosuvastatin 40 mg tablet 40 mg PO HS Hold Instructions: Home Medication placed on hold at Doctor's office metoprolol succinate 50 mg tablet extended release 24 hr 25 mg PO HS albuterol sulfate 90 mcg/actuation HFA aerosol inhaler 2 inh inhalation Q6H Qty: 18 2RF ergocalciferol (vitamin D2) 1,250 mcg (50,000 unit) capsule 1,250 mcg PO WK Rx Instructions: 1,250 mcg orally weekly; Referrals Referrals: Jose Zambrano [Primary Care Provider] - Discharge Problem: Anemia Qualifiers: Anemia type: unspecified type Qualified Code(s): D64.9 - Anemia, unspecified Fever Qualifiers: Fever type: unspecified Qualified Code(s): R50.9 - Fever, unspecified
[2023-03-05 00:24] LABS: Magnesium 1.9 mg/dl (1.7-2.4)
[2023-03-05 00:40] LABS: Thyroid Stimulating Hormone 2.081 uIu/ml (0.300-4.500)
--- NOTE | 2023-03-05 00:55 | History & Physical Report ---
Date of Service March 05, 2023 Assessment & Plan (1) Fever: Plan: 77yo male reporting significant decline in his health over the last two months. Patient with fatigue, episodes of chills and rigors. He had a fever today prior to arrival at 101 as well as hypoxia with saturations of 88%. Labs as above with pancytopenia, worsening renal function and mildly elevated troponin. Etiology unclear. Respiratory biofire panel is negative. UA with no bacteria. -Admit to medical with telemetry -Follow cultures sent from ER - blood -Follow tick studies - Anaplasmosis, Babesiosis and Erlichiosis -Will check CT chest as patient with fever, hypoxia, mild crackles noted on exam -If above workup is unrevealing would consider sending Q-fever labs, blood cultures for HACEK organisms -Tylenol as needed for fever -Empiric Doxycycline 100mg IV BID (2) BUDDY (acute kidney injury): Plan: Elevated BUN and Cr to 35 and 3.15, respectively. UA with protein and blood. Patient reports urinating without difficulty. Recent renal ultrasound with no obstruction or CINDA. -Check urine Na and Cr for FeNA calculation - suspect dysfunction is more intrinsic renal rather than pre-renal etiology. Concern with blood and protein, fairly rapid decline in renal function -?glomerulonephritis ?need for renal biopsy if workup is inconclusive -Check urine microscopy -Check CK -Renal dosing where needed -Avoid nephrotoxic agents -Nephrology consultation appreciated (3) Pancytopenia: Plan: WBC=3.6 with lymphopenia, normochromic/normocytic anemia with Hgb=8.2 and Hct=25.6, Xrk=043. Likely secondary to underlying infection -Awaiting tick-borne panel -Blood smear -Repeat CBC in AM (4) Hypothyroidism: Plan: Chronic. TSH within normal limits at 2.081 -Continue Synthroid (5) CAD (coronary artery disease): Plan: Patient denies chest pain -Continue Hydralazine 200mg po BID -Will hold isosorbide - states that patient's symptoms possibly began after starting this medication? -Hold Losartan given renal compromise -Continue Metoprolol 25mg po qHS -Continue Crestor History of Present Illness Chief Complaint: febrile illness Primary Care Provider: Jose Fung is a 77yo male with history of CAD, HTN, HLP, Gout, prostate CA s/p prostatectomy presenting with multiple complaints. Patient has had a sharp decline in his health over the last two months. 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 However, over the last two months he has had persistent fatigue, chills with occasional rigors, dry cough with some shortness of breath and occasional chest discomfort. Poor appetite with decreased oral intake as well as poor sleep. He had a fever today prior to arrival to 101 as well as decreased oxygen saturation to 88% on room air (no known lung disease or supplemental O2 use). reports that patient has little energy to do anything. Patient called their PCP with these complaints and tried to get an appointment but they were unable to be seen and were directed to the ER. Patient endorses weight loss of 25# unintentional over the last year. He denies abdominal pain, nausea, vomiting, diarrhea. He denies urinary complaints. He has CKD with baseline Cr of 1.4 - 1.7. He was recently seen by Nephrology on 02/17/23 for worsening renal function, followup of BUDDY. He had a UA from 02/15 that showed 2+ protein and 1+ bacteria. He also had an elevated microalbumin/Cr ratio at 382.3. He is to have repeat labwork performed. He is also scheduled to see Urology on 03/17/23. No recent travel or sick contacts. [place] in [place] - no known tick bites. In the ER patient is afebrile, bradycardic, mildly elevated blood pressure ER Course: Ceftriaxone NSS Allergies Allergy/AdvReac Type Severity Reaction Status Date / Time Iodinated Contrast Media AdvReac Unknown Avoids d/t Verified 03/05/23 00:09 CKD NSAIDS (Non-Steroidal AdvReac Unknown Avoids d/t Verified 03/05/23 00:09 Anti-Inflamma CKD trazodone AdvReac Unknown BUDDY Verified 03/05/23 00:09 Home Medications Medication Instructions Recorded Confirmed Type Bifidobacterium infantis 4 mg 4 mg PO DAILY 11/02/18 03/05/23 History capsule (Align) allopurinol 300 mg tablet 300 mg PO HS 11/02/18 03/05/23 History levothyroxine 25 mcg tablet 25 mcg PO QAM 03/06/19 03/05/23 History psyllium seed (sugar) oral powder 1 tbsp PO DAILY 03/06/19 03/05/23 History (Metamucil (sugar) oral powder) losartan 50 mg tablet 50 mg PO BID 05/17/19 03/05/23 History pantoprazole 40 mg tablet,delayed 40 mg PO DAILY 10/17/20 03/05/23 History release tadalafil 5 mg tablet (Cialis) 5 mg PO DAILY 10/17/20 03/05/23 History vitamins A,C,D-nrap-oaixos 4,296 1 cap PO BID 11/14/20 03/05/23 History mcg-226 mg-90 mg capsule (PreserVision AREDS) hydralazine 100 mg tablet 200 mg PO BID 01/29/21 03/05/23 History albuterol sulfate 90 mcg/actuation 2 inh inhalation Q6H #18 grams 05/13/21 03/05/23 Rx aerosol inhaler metoprolol succinate 50 mg 25 mg PO HS 05/13/21 03/05/23 History tablet,extended release 24 hr rosuvastatin 40 mg tablet 40 mg PO HS 05/13/21 03/05/23 History solifenacin 10 mg tablet (Vesicare) 10 mg PO DAILY #90 tabs 01/29/23 03/05/23 Rx isosorbide mononitrate 30 mg 30 mg PO DAILY 02/17/23 03/05/23 History tablet,extended release 24 hr rosuvastatin 10 mg tablet 10 mg PO DAILY #30 tabs 02/22/23 03/05/23 Rx ergocalciferol (vitamin D2) 1,250 1,250 mcg PO WK 03/05/23 03/05/23 History mcg (50,000 unit) capsule Past Med/Surg History Medical History (Updated 03/05/23 @ 01:38 by Celestina Chapman DO) Diverticulosis CAD (coronary artery disease) Moderate, non-obstructive CAD per 2007 cardiac cath per cardiology records BUDDY (acute kidney injury) Hypothyroidism Chronic kidney disease Stage III Hyperlipidemia Prostate cancer Dx 2019, s/p prostatectomy IBS (irritable bowel syndrome) Gout Hx HTN (hypertension) Surgical History Hx of prostatectomy Laparoscopic robotic assisted retrograde radical prostatectomy (03/28/19): MAC#3, ETT 8.0 at [facility] History of cardiac cath 2007 > no stents History of endoscopy History of colonoscopy Hx of tonsillectomy Age 6 H/O umbilical hernia repair 2011 Family History Mother , age 77 CHF (congestive heart failure) Father , age 69 Myocardial infarction Brother , age 76 Lung cancer " Never Smoked " Family history of cancer Brother Prostate cancer prostate seed implant 10 yrs ago Lupus Myocardial infarction Sister Heart disease bypass surgery times 2 Son Gout Hypertension Social History Smoking Status: Never smoker Second Hand Exposure: No; Do You Dip or Chew Tobacco: No; Hx Alcohol Use: Yes Alcohol type: beer Hx Substance Use: No Preferred Language: Ukrainian Communication Ability: Effective Visual Impairment: No Limitations Hearing Ability: Hard of Hearing Sheet Rock Finisher Required: No Beliefs That Will Affect Care: None marital status: Current Living Situation: Spouse current occupational status: employed 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 Feels Safe at Home: Yes Childhood Exposure to Second-Hand Smoke: No Assistive Devices: Glasses Review of Systems Review of Systems: All systems reviewed & are unremarkable except as noted in HPI & below Physical Exam Physical Exam: General: patient resting comfortably, NAD, ill in appearance but non-toxic, AA&O x 4 Skin: warm, dry, intact, no rashes or lesions HEENT: NC/AT, PERRL, EOMI, anicteric sclera, conjunctiva without injection, external ear normal to inspection and nontender, nares patent, moist mucus membranes, dentition intact, no oropharyngeal lesions, neck supple, trachea midline, no LAD, no thyromegaly, no JVD Heart: +S1/S2, regular, no m/r/g Lungs: equal air entry bilaterally, faint crackles in bilateral bases, no rhonchi or wheezes Abd: +BS, soft, NT/ND, no masses/organomegaly/ascites Ext: warm, 2+ pulses in UE/LE bilaterally, no clubbing/cyanosis, trace pitting edema Neuro: nonfocal, patient AA&O x 4, speech intact, no facial droop, moving all extremities on command with equal strength 5/5 Results & Data Results & Data Vital Signs (Past 12 Hours) Vital Signs Temp Pulse Pulse Resp BP BP Pulse Ox 03/04/23 22:55 56 L 03/04/23 22:51 94 03/04/23 22:50 62 19 159/106 H 94 03/04/23 22:01 37.1 C 66 18 149/79 H 96 O2 Del Method 03/04/23 22:55 03/04/23 22:51 Room Air 03/04/23 22:50 Room Air 03/04/23 22:01 Room Air Laboratory Results Laboratory Results WBC 3.60 K/ul (4.8-10.8) L 03/04/23 22:10 RBC 2.61 M/uL (4.70-6.10) L 03/04/23 22:10 Hgb 8.2 g/dl (14.0-18.0) L 03/04/23 22:10 Hct 25.6 % (42.0-52.0) L 03/04/23 22:10 MCV 98.1 fL (80.0-100.0) 03/04/23 22:10 MCH 31.4 pg (25.0-34.0) 03/04/23 22:10 MCHC 32.0 g/dL (32.0-36.0) 03/04/23 22:10 RDW Std Deviation 49.6 fL (36.4-46.3) H 03/04/23 22:10 RDW Coeff of Crow 14.0 % (11.5-14.5) 03/04/23 22:10 Plt Count 113 K/uL (130-400) L 03/04/23 22:10 MPV 12.0 fL (9.4-12.4) 03/04/23 22:10 Immature Gran % (Auto) 0.6 % 03/04/23 22:10 Neut % (Auto) 83.2 % 03/04/23 22:10 Lymph % (Auto) 8.3 % 03/04/23 22:10 Arthur % (Auto) 5.6 % 03/04/23 22:10 Eos % (Auto) 1.7 % 03/04/23 22:10 Baso % (Auto) 0.6 % 03/04/23 22:10 Neut # (Auto) 3.00 K/uL (1.40-6.50) 03/04/23 22:10 Lymph # (Auto) 0.30 K/uL (1.20-3.40) L 03/04/23 22:10 Arthur # (Auto) 0.20 K/uL (0.11-0.59) 03/04/23 22:10 Eos # (Auto) 0.06 K/uL (0.00-0.50) 03/04/23 22:10 Baso # (Auto) 0.02 K/uL (0.00-0.20) 03/04/23 22:10 Immature Gran # (Auto) 0.02 K/uL (0.01-0.20) 03/04/23 22:10 PT 10.9 Seconds (9.0-12.0) 03/04/23 22:10 INR 1.0 (0.9-1.1) 03/04/23 22:10 APTT 30.8 Seconds (21.0-31.0) 03/04/23 22:10 PTT Ratio 1.1 03/04/23 22:10 Sodium 137 mmol/L (136-145) 03/04/23 22:10 Potassium 3.3 mmol/L (3.5-5.1) L 03/04/23 22:10 Chloride 106 mmol/L (98-107) 03/04/23 22:10 Carbon Dioxide 24 mmol/L (21-32) 03/04/23 22:10 Anion Gap 7 (3-11) 03/04/23 22:10 BUN 35 mg/dl (6-23) H 03/04/23 22:10 Creatinine 3.15 mg/dl (0.6-1.4) H 03/04/23 22:10 Est Cr Clr Drug Dosing 21.3 ml/min 03/04/23 22:10 Est GFR ( Amer) 21.1 ml/min 03/04/23 22:10 Est GFR (Non-Af Amer) 18.2 ml/min 03/04/23 22:10 BUN/Creatinine Ratio 11.1 (10-20) 03/04/23 22:10 Glucose 97 mg/dl (70-99(Fasting)) 03/04/23 22:10 Lactate 0.6 mmol/L (0.4-2.0) 03/05/23 00:21 Calcium 9.1 mg/dl (8.6-10.3) 03/04/23 22:10 Magnesium 1.9 mg/dl (1.7-2.4) 03/04/23 22:10 Total Bilirubin 0.9 mg/dl (0.2-1.0) 03/04/23 22:10 AST 17 U/L (13-39) 03/04/23 22:10 ALT 17 U/L (7-52) 03/04/23 22:10 Alkaline Phosphatase 56 U/L (34-104) 03/04/23 22:10 Troponin I High Sens 32.2 pg/ml (0-20) H 03/05/23 00:21 Total Protein 6.8 gm/dl (6.0-8.3) 03/04/23 22:10 Albumin 3.2 gm/dl (3.4-5.0) L 03/04/23 22:10 Globulin 3.6 gm/dl (2.5-4.0) 03/04/23 22:10 Albumin/Globulin Ratio 0.9 (0.9-2) 03/04/23 22:10 TSH 2.081 uIu/ml (0.300-4.500) 03/04/23 22:10 Urine Color Yellow 03/05/23 01:06 Urine Appearance Clear (Clear) 03/05/23 01:06 Urine pH 5.5 (4.5-7.5) 03/05/23 01:06 Ur Specific Shelby 1.007 (1.000-1.030) 03/05/23 01:06 Urine Protein 2+ (Negative) H 03/05/23 01:06 Urine Glucose (UA) Negative (Negative) 03/05/23 01:06 Urine Ketones Negative (Negative) 03/05/23 01:06 Urine Blood 2+ (Negative) H 03/05/23 01:06 Urine Nitrite Negative (Negative) 03/05/23 01:06 Urine Bilirubin Negative (Negative) 03/05/23 01:06 Urine Urobilinogen Negative (Negative) 03/05/23 01:06 Ur Leukocyte Esterase Negative (Negative) 03/05/23 01:06 Urine WBC (Auto) 1-5 /hpf (0-5) 03/05/23 01:06 Urine RBC (Auto) >30 /hpf (0-4) H 03/05/23 01:06 U Hyaline Cast (Auto) 1-5 /lpf (0-5) 03/05/23 01:06 U Epithel Cells (Auto) 0-5 /lpf (0-5) 03/05/23 01:06 Urine Bacteria (Auto) Negative (Negative) 03/05/23 01:06 Adenovirus (PCR) Not Detected (NotDetected) 03/04/23 22:00 Anaplasma Smear Cancelled 03/04/23 22:10 Babesia Smear Cancelled 03/04/23 22:10 B. pertussis DNA (PCR) Not Detected (NotDetected) 03/04/23 22:00 B.parapertussis DNA PCR Not Detected (NotDetected) 03/04/23 22:00 Lyme Disease IgG Ab Negative (Negative) 03/04/23 22:10 Lyme Disease IgM Ab Negative (Negative) 03/04/23 22:10 C. pneumoniae DNA (PCR) Not Detected (NotDetected) 03/04/23 22:00 Coronavirus OC43 (PCR) Not Detected (NotDetected) 03/04/23 22:00 Coronavirus HKU1 (PCR) Not Detected (NotDetected) 03/04/23 22:00 Coronavirus 229E (PCR) Not Detected (NotDetected) 03/04/23 22:00 SARS-CoV-2 (PCR) Not Detected (NotDetected) 03/04/23 22:00 Coronavirus NL63 (PCR) Not Detected (NotDetected) 03/04/23 22:00 Human Metapneumovir PCR Not Detected (NotDetected) 03/04/23 22:00 Influenza Type A (PCR) Not Detected (NotDetected) 03/04/23 22:00 Influenza Type B (PCR) Not Detected (NotDetected) 03/04/23 22:00 M. pneumoniae (PCR) Not Detected (NotDetected) 03/04/23 22:00 Parainfluenza 1 (PCR) Not Detected (NotDetected) 03/04/23 22:00 Parainfluenza 2 (PCR) Not Detected (NotDetected) 03/04/23 22:00 Parainfluenza 3 (PCR) Not Detected (NotDetected) 03/04/23 22:00 Parainfluenza 4 (PCR) Not Detected (NotDetected) 03/04/23 22:00 RSV (PCR) Not Detected (NotDetected) 03/04/23 22:00 Entero/Rhino (PCR) Not Detected (NotDetected) 03/04/23 22:00 Diagnostic Findings CXR - by my interpretation - no obvious infiltrate, edema or pneumothorax. ?calcified hilar nodes ECG Additional Comments: appears to be sinus bradycardia with PAC, no acute ischemic changes PG Care Time/CCT Total # of Minutes Spent Total Time Spent with Patient: Total time spent is greater than 50% in coordination of care (as documented) at patient's floor/unit and/or counseling patient: Coding Level of Care Code 02465 INT INP/OBS CARE 3/75MIN Diagnoses Fever R50.9 Fever type: unspecified BUDDY (acute kidney injury) N17.9 Pancytopenia D61.818 Hypothyroidism E03.9 CAD (coronary artery disease) I25.10 (1) Fever Fever type: unspecified Qualified Code(s): R50.9 - Fever, unspecified
[2023-03-05 00:57] LABS: Lyme Ab IgG w/WB Rflx Negative (Negative); Lyme Ab IgM w/WB Rflx Negative (Negative)
[2023-03-05 01:01] LABS: Troponin I High Sensitivity 32.2 pg/ml (0-20)
[2023-03-05 01:16] LABS: Appearance Urine Clear (Clear); Bacteria Urine Automated Negative (Negative); Bilirubin Urine Negative (Negative); Blood Urine 2+ (Negative); Color Urine Yellow; Epithelial Cell Urine Auto 0-5 /lpf (0-5); Glucose Urine UA Negative (Negative); Ketones Urine Negative (Negative); Leukocyte Esterase Urine Negative (Negative); Nitrite Urine Negative (Negative); Protein Urine 2+ (Negative); RBC Urine Automated >30 /hpf (0-4); Specific Gravity Urine 1.007 (1.000-1.030); Urobilinogen Urine Negative (Negative); pH Urine 5.5 (4.5-7.5)
[2023-03-05] MEDS ORDERED: DOCUSATE SODIUM 100 MG CAP PO PRN (03:56)
[2023-03-05] MEDS ORDERED: POTASSIUM CHLORIDE CRTAB 20 MEQ TABCR PO STA (03:56)
[2023-03-05] MEDS ORDERED: ALBUTEROL HFA 8 GM INHALER INH PRN (03:56)
[2023-03-05] MEDS ORDERED: ONDANSETRON INJ 2 MG/ML 2 ML VIAL IV PRN (03:56)
[2023-03-05 04:20] LABS: Phosphorus 3.7 mg/dl (2.5-4.9)
[2023-03-05] MEDS: DOXYCYCLINE HYCLATE 100 MG in DEXTROSE 5% MINI-B 100 ML IV SCH ×2 (04:34→15:14)
[2023-03-05] MEDS: LACTATED RINGER'S 1,000 ML IV SCH ×2 (04:34→13:14)
[2023-03-05] MEDS: LEVOTHYROXINE SODIUM 25 MCG TABLET PO SCH (06:04)
--- NOTE | 2023-03-05 07:11 | CT Scan Report ---
CT chest diagnostic wo con CLINICAL HISTORY: fever, hypoxia - ?PNA TECHNIQUE: Multidetector row helical CT of the chest was performed. Coronal and sagittal reformations were obtained. Automated dose lowering techniques and/or adjustment according to patient size were u tilized for this exam. CT DOSE: 542.05 mGy.cm Comparison: Comparison is made to chest radiograph 03/04/2023 FINDINGS: Lungs and pleura: Minimal smooth thickening of the interlobular septa is noted. Peripheral scarring i s seen. There are a few groundglass opacities and increased bibasilar atelectasis. There are some tin y pulmonary nodules include a 3 mm nodule in the left lower lobe superior segment (series 4 image 73) and a 5 mm nodule in the right middle lobe (image 179). Heart and pericardium: Heart size is normal. No pericardial effusion. Vessels: Moderate atherosclerotic changes in the aorta and coronary arteries. Pulmonary trunk measure s 34 mm. Mediastinum and gisselle: Unremarkable. Chest wall and lower neck: Unremarkable. Abdomen: Partial visualization of bilateral renal cysts. Bones: Degenerative changes in the thoracic spine. IMPRESSION: 1. No definite consolidation. A few groundglass nodules are nonspecific but may be infectious/inflam matory. 2. Smooth interlobular septal thickening and prominence of the pulmonary trunk, mild pulmonary edema cannot be excluded. 3. A few tiny pulmonary nodules as above. According to Fleischner criteria, no follow-up is required in low risk patients, in high-risk patients, a 12 month follow-up CT can be optionally performed. ACT 112: Negative or not required by law. Electronically signed by: Ray Reilly M.D. 03/05/2023 7:09 AM
--- NOTE | 2023-03-05 07:26 | XRay Report ---
XR chest 1V not portable CLINICAL HISTORY: Chest pain, nonspecific TECHNIQUE: Single frontal radiograph of the chest was obtained. Comparison: Comparison is made to chest radiograph 05/13/2021 FINDINGS: No lines and tubes are seen. Calcified aortic knob is seen. The lungs are clear. No evidence of pleur al effusion or pneumothorax. IMPRESSION: No acute chest disease. ACT 112: Negative or not required by law. Electronically signed by: Ray Reilly M.D. 03/05/2023 7:25 AM
[2023-03-05 07:29] LABS: Bacteria Urine Automated Negative (Negative); Epithelial Cell Urine Auto 0-5 /lpf (0-5); RBC Urine Automated >30 /hpf (0-4)
[2023-03-05] MEDS: OXYBUTYNIN CHLORIDE XL 5 MG TABCR PO SCH (07:47)
[2023-03-05] MEDS: PANTOprazole 40 MG TAB PO SCH (07:48)
[2023-03-05] MEDS: hydrALAZINE TAB 50 MG TAB PO SCH ×2 (07:48→20:19)
[2023-03-05 07:51] LABS: Creatinine Urine Random 56.4 mg/dl
[2023-03-05] MEDS ORDERED: INFLUENZA VACCINE HIGH-DOSE (HD-IIV4) PF 65+ 0.7mL SYR IM ONE (08:00)
--- NOTE | 2023-03-05 08:05 | Hospitalist Progress Note ---
Date of Service March 05, 2023 Assessment & Plan (1) Fever: Plan: 77 y/o male reporting significant decline in his health over the last two months. Patient with fatigue, episodes of chills and rigors. He had a fever today prior to arrival at 101 as well as hypoxia with saturations of 88%. Labs as above with pancytopenia, worsening renal function and mildly elevated troponin. #Fever #General Malaise #Pancytopenia #Presumed Tick Borne Illness Etiology unclear. With pancytopenia and vague constitutional symptoms tick borne etiology is high on the differential. CT without obvious consolidation. UA, Lyme, and Respiratory BioFire negative. Pending: Anaplasmosis, Babesiosis, and Erlichiosis, blood cultures Doxycycline 100 mg IV BID empirically, consider switching to atovaquone and azithromycin if no clinical improvement Tylenol PRN for fever f/u blood smear If above workup is unrevealing could consider sending Q-fever labs, blood cultures for HACEK organisms #BUDDY #?Glomerulonephritis Elevated BUN and Cr to 35 and 3.15, respectively. UA with protein and blood. CK normal. Recent renal ultrasound with no obstruction or CINDA. Consistent with intrinsic/intrarenal kidney injury with FeNa 2.6%. Nephrology consult - appreciate recs. Nephro recs - serologic and paraproteinemia work-up, hemolysis labs - LDH, haptoglobin, reticulocyte count, iron studies, B12, folate #?CHF Patient describes symptoms consistent with orthopnea. He has a cough. Previous echo with signs of LVH and aortic sclerosis. Repeat ECHO. If there are no signs of pre-load dependence or CHF will start CCB for BP control. Consider GDMT if signs of heart failure on ECHO. #CAD #HTN Patient denies chest pain. Trop peaked at 34.0. Continue hydralazine 200 mg po BID. Holding isosorbide - believes symptoms started after initiation of this medication. Holding losartan in setting of BUDDY. Continue metoprolol 25 mg QHS. Continue Crestor. #Hypothyroidism Chronic. TSH within normal limits at 2.081. Continue Synthroid Code status: full DVT ppx: low risk, ambulation - if extended hospital stay would start lovenox FENGI: HH diet, LR 100 mL/hr Dispo: PCU (2) BUDDY (acute kidney injury): (3) Pancytopenia: (4) Hypothyroidism: (5) CAD (coronary artery disease): Admission and Anticipated Discharge Date Admission Date: March 05, 2023 Supervising Physician Co-Signing Physician Notes Resident Physician Supervision Note: I independently interviewed and examined the patient and verified the valenzuela history and physical, reviewed labs and image studies and agree with resident findings and care plan. Subjective Seen at bedside this AM. Continues to generally feel unwell. No real change in symptoms. Review of Systems 2 Review of Systems: See HPI Physical Exam 2 Physical Exam: General: patient resting comfortably, NAD, ill in appearance but non-toxic Skin: warm, dry, intact, no rashes or lesions HEENT: NC/AT, PERRL, EOMI, anicteric sclera, conjunctiva without injection, moist mucus membranes, neck supple, trachea midline Heart: +S1/S2, regular, no m/r/g Lungs: equal air entry bilaterally, faint crackles in bilateral bases, no rhonchi or wheezes Abd: soft, NT/ND, no masses/organomegaly/ascites Ext: warm, 2+ pulses in UE/LE bilaterally, no clubbing/cyanosis, trace pitting edema Neuro: nonfocal, alert and oriented, speech intact, no facial droop, moving all extremities Psych: appropriate mood and affect Results & Data Results & Data Vital Signs (Past 12 Hours) Vital Signs Temp Pulse Pulse Resp BP BP Pulse Ox 03/05/23 07:40 36.9 C 62 19 174/77 H 97 03/05/23 04:41 37.3 C 68 18 169/82 H 95 03/05/23 04:00 03/05/23 03:56 37.3 C 68 18 169/82 H 95 03/05/23 03:00 60 03/05/23 02:20 61 25 H 94 03/05/23 02:10 58 L 22 90 03/05/23 02:00 55 L 16 98 03/05/23 02:00 163/76 H 03/05/23 01:50 57 L 18 97 03/05/23 01:40 54 L 16 93 03/05/23 01:30 57 L 13 95 03/05/23 01:20 58 L 18 94 03/05/23 01:10 56 L 15 95 03/05/23 01:06 169/89 H 03/05/23 01:06 57 L 18 95 03/05/23 00:37 59 L 16 96 03/05/23 00:37 169/79 H 03/05/23 00:30 57 L 20 95 03/05/23 00:20 56 L 17 96 03/05/23 00:10 59 L 20 95 03/05/23 00:00 59 L 21 95 03/04/23 23:50 61 23 95 03/04/23 23:40 55 L 13 95 03/04/23 23:30 55 L 13 95 03/04/23 23:20 53 L 16 95 03/04/23 23:10 56 L 15 95 03/04/23 23:00 55 L 18 96 03/04/23 22:55 56 L 03/04/23 22:54 56 L 16 96 03/04/23 22:51 94 03/04/23 22:50 62 19 159/106 H 94 03/04/23 22:01 37.1 C 66 18 149/79 H 96 O2 Del Method 03/05/23 07:40 Room Air 03/05/23 04:41 Room Air 03/05/23 04:00 Room Air 03/05/23 03:56 Room Air 03/05/23 03:00 03/05/23 02:20 03/05/23 02:10 03/05/23 02:00 03/05/23 02:00 03/05/23 01:50 03/05/23 01:40 03/05/23 01:30 03/05/23 01:20 03/05/23 01:10 03/05/23 01:06 03/05/23 01:06 03/05/23 00:37 03/05/23 00:37 03/05/23 00:30 03/05/23 00:20 03/05/23 00:10 03/05/23 00:00 03/04/23 23:50 03/04/23 23:40 03/04/23 23:30 03/04/23 23:20 03/04/23 23:10 03/04/23 23:00 03/04/23 22:55 03/04/23 22:54 03/04/23 22:51 Room Air 03/04/23 22:50 Room Air 03/04/23 22:01 Room Air Laboratory Results 03/04/23 22:10 03/05/23 10:40 Diagnostic Findings Chest X-Ray 03/04/23 22:06 FINDINGS: No lines and tubes are seen. Calcified aortic knob is seen. The lungs are clear. No evidence of pleural effusion or pneumothorax. IMPRESSION: No acute chest disease. Chest CT 03/05/23 03:56 FINDINGS: Lungs and pleura: Minimal smooth thickening of the interlobular septa is noted. Peripheral scarring is seen. There are a few groundglass opacities and increased bibasilar atelectasis. There are some tiny pulmonary nodules include a 3 mm nodule in the left lower lobe superior segment (series 4 image 73) and a 5 mm nodule in the right middle lobe (image 179). Heart and pericardium: Heart size is normal. No pericardial effusion. Vessels: Moderate atherosclerotic changes in the aorta and coronary arteries. Pulmonary trunk measures 34 mm. Mediastinum and gisselle: Unremarkable. Chest wall and lower neck: Unremarkable. Abdomen: Partial visualization of bilateral renal cysts. Bones: Degenerative changes in the thoracic spine. IMPRESSION: 1. No definite consolidation. A few groundglass nodules are nonspecific but may be infectious/inflammatory. 2. Smooth interlobular septal thickening and prominence of the pulmonary trunk, mild pulmonary edema cannot be excluded. 3. A few tiny pulmonary nodules as above. According to Fleischner criteria, no follow-up is required in low risk patients, in high-risk patients, a 12 month follow-up CT can be optionally performed. Resident Activity Tracking Resident Involvement: Resident Care Provided Care Provided: Adult Hospital Medicine (1) Fever Fever type: unspecified Qualified Code(s): R50.9 - Fever, unspecified
[2023-03-05 08:14] LABS: Platelet Count 171 K/uL (130-400)
--- NOTE | 2023-03-05 09:07 | Electrocardiogram Report ---
Test Reason : Blood Pressure : / mmHG Vent. Rate : 060 BPM Atrial Rate : 060 BPM P-R Int : 000 ms QRS Dur : 098 ms QT Int : 448 ms P-R-T Axes : 000 -59 035 degrees QTc Int : 448 ms Sinus rhythm Pulmonary disease pattern Left anterior fascicular block Abnormal ECG When compared with ECG of 23-OCT-2020 14:25, No significant change Confirmed by Akil Rodarte ([id number]) on 03/05/2023 9:07:34 AM Referred By: REFERRED SELF Confirmed By:Akil Rodarte
--- NOTE | 2023-03-05 10:41 | Nephrology Consultation ---
Date of Consultation March 05, 2023 Assessment & Plan (1) BUDDY (acute kidney injury): (2) Anemia: (3) Hypoxia: (4) Fever: Plan 77 y history of stage IIIb CKD baseline creatinine 1.4-1.7o M with secondary to microvascular disease, recently noted to have BUDDY on routine lab with creatinine 2.4 mg/dl 2 weeks ago. Renal ultrasound was otherwise unremarkable except bilateral cyst. Admitted to the hospital with 2 months history of progressive generalized weakness and fatigue, weight loss, episodes of shaking chills and rigors. Labs showed further worsening of renal function, creatinine up to 3.2 mg/dl, electrolyte acceptable. Noted to have anemia, leukopenia. Urinalysis 3 moderate degree of proteinuria and microscopic hematuria without bacteriuria. --Considering progressive worsening of renal function, proteinuria, hematuria as well as anemia, will order serologic and paraproteinemia work-up. Infectious etiology and work-up for tickborne illnesses already sent and currently pending. Blood culture pending. --iron study, B 12, folate, LDH, haptoglobin -- Okay to continue on IV fluid, however since blood pressure elevated, if patient able to maintain p.o. intake, would recommend stopping IV fluids,, clinically does not seem to be volume depleted --Continue to hold diuretics and losartan for now, if blood pressure runs high, discontinue IV fluid and if needed resume hydralazine -- Monitor intake and output --Dose medications for eGFR less than 30, avoid all nephrotoxic medications. Thank you for allowing me to participate in your patient's care. It was a pleasure to see Keith. History of Present Illness Reason for Consultation: BUDDY, Anemia Attending Physician: Wilma Arnold MD History of Present Illness Mr. Keith Fung is a 77yo M with PMH of Stage 3B CKD, recent BUDDY, HTN, HLP, Gout, h/o prostate CA s/p prostatectomy admitted with BUDDY, hypoxic respiratory failure. Nephrology consult was requested for management of BUDDY. Electronic medical records were reviewed in detail during patient's visit. Navya to ER yesterday hypoxia noted on pulse ox at home. He reports his oxygen saturation on room air at home was in low 80s and his family brought him to ER for further evaluation. He really did not have any episode of respiratory distress that he could recall. However he reports progressive decline in his health over last almost 2 months with generalized fatigue and weakness, repeated episodes of shaking chills, rigors, repeated episodes of dry cough. He reports appetite being poor however he feels like he was able to keep up with his intake in general. Has been having decent urine output. He denies any exposure to outdoors in the last 1 year but [place] many [place] in their yard - no known tick bites. 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 He reports unintentional weight loss of about 15 to 20 pounds over last 1 year. Denies abdominal pain, nausea, vomiting, diarrhea. Denied gross hematuria, dysuria or urinary retention. Denied regular heavy use of NSAIDs or recent antibiotic exposure. On admission chest x-ray was otherwise unremarkable without any evidence of pulmonary edema or infiltrate. Troponin was slightly elevated but stayed stable on repeat. Globin was 8.2, was leukopenic, WBC was 3.6, platelet 150s. Creatinine was 3.2. Urinalysis with 2+ proteinuria, microscopic hematuria with more than 30 RBC per high-power field, no bacteria. In ER he was given IV normal saline and 1 dose of ceftriaxone and then continued on doxycycline 100 mg every 12 hours. Has stage IIIb CKD, b/l cr has been around 1.4-1.7 mg/dl thought to be secondary to microvascular disease with history of hypertension. Previously had an episode of BUDDY in 2018, creatinine peaked at 2.9 which eventually improved back to baseline. Last creatinine in July 2022 was 1.4 mg/dl. Recently he was noted to have BUDDY on routine lab on 02/15/2023, creatinine was noted to be 2.4 mg/dl. Had a renal ultrasound on 02/19/2023 showing bilateral cyst with slight increase in size of cyst in left kidney but no postrenal obstruction. Has history of prostate cancer s/p resection on 03/28/2019, scheduled to see Urology on 03/17/23 for follow-up. Never smoker. No known family history of CKD or ESRD. No history of diabetes or coronary artery disease. Overall he feels generally weak but denied any specific symptoms at this time. on LR @ 100 ml/h Allergies Allergy/AdvReac Type Severity Reaction Status Date / Time Iodinated Contrast Media AdvReac Unknown Avoids d/t Verified 03/05/23 00:09 CKD NSAIDS (Non-Steroidal AdvReac Unknown Avoids d/t Verified 03/05/23 00:09 Anti-Inflamma CKD trazodone AdvReac Unknown BUDDY Verified 03/05/23 00:09 Home Medications Medication Instructions Recorded Confirmed Type Bifidobacterium infantis 4 mg 4 mg PO DAILY 11/02/18 03/05/23 History capsule (Align) allopurinol 300 mg tablet 300 mg PO HS 11/02/18 03/05/23 History levothyroxine 25 mcg tablet 25 mcg PO QAM 03/06/19 03/05/23 History psyllium seed (sugar) oral powder 1 tbsp PO DAILY 03/06/19 03/05/23 History (Metamucil (sugar) oral powder) losartan 50 mg tablet 50 mg PO BID 05/17/19 03/05/23 History pantoprazole 40 mg tablet,delayed 40 mg PO DAILY 10/17/20 03/05/23 History release tadalafil 5 mg tablet (Cialis) 5 mg PO DAILY 10/17/20 03/05/23 History vitamins A,C,U-ktkq-yplcae 4,296 1 cap PO BID 11/14/20 03/05/23 History mcg-226 mg-90 mg capsule (PreserVision AREDS) hydralazine 100 mg tablet 200 mg PO BID 01/29/21 03/05/23 History albuterol sulfate 90 mcg/actuation 2 inh inhalation Q6H #18 grams 05/13/21 03/05/23 Rx aerosol inhaler metoprolol succinate 50 mg 25 mg PO HS 05/13/21 03/05/23 History tablet,extended release 24 hr rosuvastatin 40 mg tablet 40 mg PO HS 05/13/21 03/05/23 History solifenacin 10 mg tablet (Vesicare) 10 mg PO DAILY #90 tabs 01/29/23 03/05/23 Rx isosorbide mononitrate 30 mg 30 mg PO DAILY 02/17/23 03/05/23 History tablet,extended release 24 hr rosuvastatin 10 mg tablet 10 mg PO DAILY #30 tabs 02/22/23 03/05/23 Rx ergocalciferol (vitamin D2) 1,250 1,250 mcg PO WK 03/05/23 03/05/23 History mcg (50,000 unit) capsule Patient History Medical History (Updated 03/05/23 @ 01:38 by Celestina Chapman DO) Diverticulosis CAD (coronary artery disease) Moderate, non-obstructive CAD per 2007 cardiac cath per cardiology records BUDDY (acute kidney injury) Hypothyroidism Chronic kidney disease Stage III Hyperlipidemia Prostate cancer Dx 2019, s/p prostatectomy IBS (irritable bowel syndrome) Gout Hx HTN (hypertension) Surgical History Hx of prostatectomy Laparoscopic robotic assisted retrograde radical prostatectomy (03/28/19): MAC#3, ETT 8.0 at [facility] History of cardiac cath 2007 > no stents History of endoscopy History of colonoscopy Hx of tonsillectomy Age 6 H/O umbilical hernia repair 2011 Family History Mother , age 77 CHF (congestive heart failure) Father , age 69 Myocardial infarction Brother , age 76 Lung cancer " Never Smoked " Family history of cancer Brother Prostate cancer prostate seed implant 10 yrs ago Lupus Myocardial infarction Sister Heart disease bypass surgery times 2 Son Gout Hypertension Social History Smoking Status: Never smoker Second Hand Exposure: No; Do You Dip or Chew Tobacco: No; Hx Alcohol Use: No Hx Substance Use: No Preferred Language: Bengali Communication Ability: Effective Visual Impairment: No Limitations Hearing Ability: Hard of Hearing Truck Operator Required: No Beliefs That Will Affect Care: None marital status: Current Living Situation: Spouse Current Living Situation Comment: Lives at home with current occupational status: employed 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 Physical Exam Constitutional: WD/WN, vitals as above no acute distress Eyes: + anicteric sclerae ENMT: Ears: no hearing impairment Neck: normal visual inspection Respiratory: no respiratory distress and no cough Auscultation: lungs clear to auscultation bilaterally Cardiovascular: RRR, no murmur, no edema Gastrointestinal (Abdomen): Inspection/Auscultation: abdomen normal to inspection Percussion/Palpation: abdomen soft; abdomen nontender Musculoskeletal: Extremities: extremities normal to inspection Skin: no rashes, warm and dry Neurologic: no focal motor deficits Psychiatric: Orientation: alert and oriented x 3 Affect: euthymic affect Results & Data Vital Signs (Past 12 Hours) Vital Signs Temp Pulse Pulse Resp BP BP Pulse Ox 03/05/23 09:39 03/05/23 07:40 36.9 C 62 19 174/77 H 97 03/05/23 04:41 37.3 C 68 18 169/82 H 95 03/05/23 04:00 03/05/23 03:56 37.3 C 68 18 169/82 H 95 03/05/23 03:00 60 03/05/23 02:20 61 25 H 94 03/05/23 02:10 58 L 22 90 03/05/23 02:00 55 L 16 98 03/05/23 02:00 163/76 H 03/05/23 01:50 57 L 18 97 03/05/23 01:40 54 L 16 93 03/05/23 01:30 57 L 13 95 03/05/23 01:20 58 L 18 94 03/05/23 01:10 56 L 15 95 03/05/23 01:06 169/89 H 03/05/23 01:06 57 L 18 95 03/05/23 00:37 59 L 16 96 03/05/23 00:37 169/79 H 03/05/23 00:30 57 L 20 95 03/05/23 00:20 56 L 17 96 03/05/23 00:10 59 L 20 95 03/05/23 00:00 59 L 21 95 03/04/23 23:50 61 23 95 03/04/23 23:40 55 L 13 95 03/04/23 23:30 55 L 13 95 03/04/23 23:20 53 L 16 95 03/04/23 23:10 56 L 15 95 03/04/23 23:00 55 L 18 96 03/04/23 22:55 56 L 03/04/23 22:54 56 L 16 96 03/04/23 22:51 94 03/04/23 22:50 62 19 159/106 H 94 O2 Del Method 03/05/23 09:39 Room Air 03/05/23 07:40 Room Air 03/05/23 04:41 Room Air 03/05/23 04:00 Room Air 03/05/23 03:56 Room Air 03/05/23 03:00 03/05/23 02:20 03/05/23 02:10 03/05/23 02:00 03/05/23 02:00 03/05/23 01:50 03/05/23 01:40 03/05/23 01:30 03/05/23 01:20 03/05/23 01:10 03/05/23 01:06 03/05/23 01:06 03/05/23 00:37 03/05/23 00:37 03/05/23 00:30 03/05/23 00:20 03/05/23 00:10 03/05/23 00:00 03/04/23 23:50 03/04/23 23:40 03/04/23 23:30 03/04/23 23:20 03/04/23 23:10 03/04/23 23:00 03/04/23 22:55 03/04/23 22:54 03/04/23 22:51 Room Air 03/04/23 22:50 Room Air PG Care Time/CCT Total # of Minutes Spent Total Time Spent with Patient: Total time spent is greater than 50% in coordination of care (as documented) at patient's floor/unit and/or counseling patient: Coding Level of Care Code 06058 OFFICE CONSULT LVL M Diagnoses BUDDY (acute kidney injury) N17.9 Anemia D64.9 Anemia type: unspecified type Hypoxia R09.02 Fever R50.9 Fever type: unspecified (2) Anemia Anemia type: unspecified type Qualified Code(s): D64.9 - Anemia, unspecified (4) Fever Fever type: unspecified Qualified Code(s): R50.9 - Fever, unspecified
[2023-03-05 11:11] LABS: BUN Creatinine Ratio 11.7 (10-20); Calcium 8.9 mg/dl (8.6-10.3); Creatinine Clr Calc Pharmacy 22.3 ml/min; Est GFR (African American) 22.4 ml/min; Est GFR (Non-African American) 19.4 ml/min; Phosphorus 3.2 mg/dl (2.5-4.9); Potassium 3.5 mmol/L (3.5-5.1)
[2023-03-05 12:10] LABS: Reticulocyte % 1.3 % (0.5-2.0); Reticulocytes # 0.03 10^6/uL (0.02-0.10)
[2023-03-05 12:27] LABS: Ferritin 92.5 ng/ml (8-388)
[2023-03-05] MEDS: PSYLLIUM or GUAR GUM FIBER POWDER PACKET PO SCH (13:09)
--- NOTE | 2023-03-05 15:57 | XCELERA ---
[id number] \\[id number]
[2023-03-05] MEDS: POLYETHYLENE (MIRALAX) 17 GM PACK PO SCH (19:49)
[2023-03-05] MEDS: METOPROLOL SUCC 25MG EXT REL TAB PO SCH (20:18)
[2023-03-05] MEDS: allopurinoL 100 MG TAB PO SCH (20:18)
[2023-03-05] MEDS ORDERED: ROSUVASTATIN CALCIUM 20 MG TAB PO SCH (21:00)
[2023-03-05] MEDS: ACETAMINOPHEN 325 MG TAB PO PRN (23:26)
[2023-03-06] MEDS: BENZONATATE 100 MG CAPSULE PO PRN
[2023-03-06] MEDS: DOXYCYCLINE HYCLATE 100 MG in DEXTROSE 5% MINI-B 100 ML IV SCH ×2 (04:57→17:45)
[2023-03-06] MEDS: LEVOTHYROXINE SODIUM 25 MCG TABLET PO SCH (06:20)
--- NOTE | 2023-03-06 06:55 | Hospitalist Progress Note ---
Date of Service March 06, 2023 Assessment & Plan (1) Fever: (2) BUDDY (acute kidney injury): (3) Pancytopenia: (4) Hypothyroidism: (5) CAD (coronary artery disease): Plan 77 y/o male reporting significant decline in his health over the last two months. Patient with fatigue, episodes of chills and rigors. He had a fever today prior to arrival at 101 as well as hypoxia with saturations of 88%. Labs as above with pancytopenia, worsening renal function and mildly elevated troponin. #Fever #General Malaise #Pancytopenia -Etiology unclear. With pancytopenia and vague constitutional symptoms -CT without obvious consolidation. -Doxycycline 100 mg IV BID empirically, consider switching to atovaquone and azithromycin if no clinical improvement -Tylenol PRN for fever -Babesia smear negative, Anaplasmosis smear negative, Lyme negative, respiratory BioFire negative, -Blood cultures negative to date. -Babesia PCR pending, immunology labs pending, UA labs pending, If above workup is unrevealing could consider sending Q-fever labs, blood cultures for HACEK organisms #Anemia -Patient with a 8.2 hemoglobin on admission. 7.8 on 03/06. -Iron deficiency noted. Scheduled for outpatient GI evaluation. -Venofer given today. -We will also order Hemoccult stool testing. #BUDDY #?Glomerulonephritis -Elevated BUN and Cr to 35 and 3.15, respectively. UA with protein and blood. CK normal. Recent renal ultrasound with no obstruction or CINDA. Consistent with intrinsic/intrarenal kidney injury with -FeNa 2.6%. -Nephrology consult -serologic and paraproteinemia work-up, hemolysis labs - LDH, haptoglobin, reticulocyte count, iron studies, B12, folate -Consider AIN, may also need a renal biopsy for consideration of multicystic kidneys #?CHF Patient describes symptoms consistent with orthopnea. He has a cough. Previous echo with signs of LVH and aortic sclerosis. Repeat Echo showed a EF of 55-60% with mild concentric left LVH. No evidence of heart failure. We will add on amlodipine 5 mg every morning. #CAD #HTN -Patient denies chest pain. Trop peaked at 34.0. Continue hydralazine 200 mg po BID. Holding isosorbide - believes symptoms started after initiation of this medication. Holding losartan in setting of BUDDY. Continue metoprolol 25 mg QHS. Continue Crestor. -We will add on amlodipine 5 mg every morning at this time. #Hypothyroidism Chronic. TSH within normal limits at 2.081. Continue Synthroid Code status: full DVT ppx: low risk, ambulation - if extended hospital stay would start lovenox FENGI: HH diet, LR 100 mL/hr Dispo: PCU Admission and Anticipated Discharge Date Admission Date: March 05, 2023 Supervising Physician Co-Signing Physician Notes Resident Physician Supervision Note: I independently interviewed and examined the patient and verified the valenzuela history and physical, reviewed labs and image studies and agree with resident findings and care plan. Fever last night. Appetite has been lower for a long time. Fever with anemia and leukopenia -Tick borne illness work up negative so far. PCR test pending -cultures negative. -continue doxycycline. -will discuss with lab about testing for HACEK in am and Q fever testing Anemia -Hb 7.8 on 03/06. -will check b12 level -Hemoccult stool testing ordered. -IV venofer today and scheduled for GI work up as outpatient. BUDDY on CKD III -Per nephro - not consistent with RPGN but can't exclude GN. serology pending. Can't exclude AIN. -additional work up ordered today - renal duplex. Anti Ds DNA, ESR, CPK, PSA, -additional 1L normosol ordered. Ambulation Subjective Patient seen bedside this AM. Currently on 2 L nasal cannula. He states that he has not on any oxygen at home. States that he feels better than when he came in. He is no longer shaky. Denies any nausea vomiting, chest pain, shortness of breath, abdominal pain. Review of Systems Review of Systems: All systems reviewed & are unremarkable except as noted in Subjective Physical Exam Physical Exam: Constitutional: well-appearing, no acute distress HEENT: NCAT, no conjunctival injection CV: regular rhythm, no murmur appreciated, extremities well-perfused, no LE edema Resp: CTABL, no wheezes/rales/rhonchi appreciated, no increased work of breathing GI: soft, nondistended, nontender, BS normoactive MSK: no gross deformities appreciated Skin: warm, dry, no rash appreciated Neuro: alert, oriented, no focal neurologic deficit appreciated Results & Data Results & Data Vital Signs (Past 12 Hours) Vital Signs Temp Pulse Pulse Resp BP BP Pulse Ox 03/06/23 04:01 36.6 C 66 20 136/77 98 03/06/23 00:51 76 03/05/23 23:56 36.9 C 03/05/23 23:01 38.6 C H 72 16 181/74 H 93 03/05/23 21:04 03/05/23 20:17 64 18 169/78 H 03/05/23 19:37 37.0 C 65 18 179/84 H 96 O2 Del Method O2 Flow Rate 03/06/23 04:01 Nasal Cannula 2.0 03/06/23 00:51 03/05/23 23:56 03/05/23 23:01 Nasal Cannula 2.0 03/05/23 21:04 Room Air 03/05/23 20:17 03/05/23 19:37 Room Air Resident Activity Tracking Resident Involvement: Resident Care Provided Care Provided: Adult Hospital Medicine (1) Fever Fever type: unspecified Qualified Code(s): R50.9 - Fever, unspecified
[2023-03-06 07:44] LABS: Hematocrit (blood only) 24.4 % (42.0-52.0); Hemoglobin 7.8 g/dl (14.0-18.0); Mean Corpuscular Hemoglobin 31.5 pg (25.0-34.0); Mean Corpuscular Volume 98.4 fL (80.0-100.0); Platelet Count 159 K/uL (130-400); RDW Coefficient of Variation 13.8 % (11.5-14.5); RDW Standard Deviation 50.3 fL (36.4-46.3); Red Blood Count 2.48 M/uL (4.70-6.10); White Blood Count 3.19 K/ul (4.8-10.8)
[2023-03-06 08:05] LABS: Albumin Level 2.9 gm/dl (3.4-5.0); Potassium 3.4 mmol/L (3.5-5.1)
[2023-03-06 08:11] LABS: BUN Creatinine Ratio 9.8 (10-20); Creatinine Clr Calc Pharmacy 22.7 ml/min; Est GFR (African American) 22.7 ml/min; Est GFR (Non-African American) 19.6 ml/min; Phosphorus 3.7 mg/dl (2.5-4.9)
[2023-03-06] MEDS: guaiFENesin 600 MG TABCR PO SCH ×2 (09:39→22:56)
[2023-03-06] MEDS: PANTOprazole 40 MG TAB PO SCH (09:39)
[2023-03-06] MEDS: OXYBUTYNIN CHLORIDE XL 5 MG TABCR PO SCH (09:40)
[2023-03-06] MEDS: hydrALAZINE TAB 50 MG TAB PO SCH ×2 (09:40→22:57)
[2023-03-06] MEDS: PSYLLIUM or GUAR GUM FIBER POWDER PACKET PO SCH (09:41)
[2023-03-06] MEDS: POLYETHYLENE (MIRALAX) 17 GM PACK PO SCH (09:44)
[2023-03-06] MEDS ORDERED: POTASSIUM CHLORIDE CRTAB 20 MEQ TABCR PO STA (09:46)
--- NOTE | 2023-03-06 10:06 | Nephrology Progress Note ---
Date of Service March 06, 2023 Assessment & Plan (1) BUDDY (acute kidney injury): Plan: Etiology unclear. Non-oliguric. Electrolytes acceptable. Volume status appears relatively euvolemic. 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 Creatinine stable ~24 hours. UA notable for protein. >30 RBC/hpf on micro. Clinical presentation not consistent with RPGN but cannot exclude underlying GN entirely. Serologic evaluation pending. Peripheral smear without evidence of TMA. Cannot exclude AIN. Ultimately, kidney biopsy may be required for definitive diagnosis but consideration given to multicystic kidneys. I do think renal biopsy could safely be performed if necessary. Prior imaging reviewed. Notable calcific vascular disease involving Additional 1 L Normosol ordered. Document strict I/O's. Repeat metabolic profile tomorrow AM. Medications appropriately dosed for kidney function. (2) Anemia: Plan: H/H stable. Iron deficiency noted. No melena or hematochezia. Scheduled for outpatient GI evaluation. IV Venofer 300 mg today. (3) Fever: Plan: Appear to have defervesed. Remains on Doxycycline. No obvious source of infec tion identified. (4) Prostate cancer: Plan: PSA to be updated with next blood work. Admission and Anticipated Discharge Date Admission Date: March 05, 2023 Subjective No acute events overnight. Keith was seen and evaluated with his at the bedside. He reports improvement. He continues to endorse cold intolerance and some intermittent shaking chills. No fevers. Breathing comfortably. Dry cough and sore throat persist. Reports fullness in neck persistent for several weeks. Recently evaluated as outpatient and told that enlarged veins were identified on a CT scan completed in [place]. 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 Keith denies any melena or hematochezia. Some constipation reported but moved his bowels this AM. Denies abdominal pain. Appetite is poor. Reports feeling very thirsty with persistent dry mouth. Generalized achiness and malaise. Generalized arthralgias notably in small joints of the hands. Stiffness in hands also reported. Hands have intermittently been swollen for several weeks. No skin rashes or lesions. Keith notes that symptoms of fatigue and malaise started after Isosorbide mononitrate was prescribed by his traveling phlebotomist in November. Review of Systems Review of Systems: All systems reviewed & are unremarkable except as noted in HPI & below Physical Exam Constitutional: well developed; no acute distress Eyes: + conjunctival abnormality (pallor) and + anicteric sclerae ENMT: Mouth: + dry oral mucous membranes; no oral mucosal abnormality Neck: normal visual inspection, trachea midline, + neck tender (mildly tender submanibular and some tenderness involving cervical chain LN/) and + thick neck Enlarged cervical LN particularly L anterior Respiratory: normal respiratory effort Auscultation: lungs clear to auscultation bilaterally Cardiovascular: Rate/Rhythm: regular rate Heart Sounds: normal S1 and normal S2 Extremities: + pedal edema (trace); no edema Musculoskeletal: Extremities: no cyanosis and no clubbing Skin: normal turgor; no rashes and no jaundice Neurologic: Motor/Sensory: no tremor and no asterixis Psychiatric: Orientation: alert and oriented x 3 Results & Data Vital Signs (Past 12 Hours) Vital Signs Temp Pulse Pulse Resp BP BP Pulse Ox 03/06/23 08:22 36.8 C 77 18 134/75 97 03/06/23 08:05 56 L 03/06/23 04:01 36.6 C 66 20 136/77 98 03/06/23 00:51 76 03/05/23 23:56 36.9 C 03/05/23 23:01 38.6 C H 72 16 181/74 H 93 O2 Del Method O2 Flow Rate 03/06/23 08:22 Nasal Cannula 2.0 03/06/23 08:05 03/06/23 04:01 Nasal Cannula 2.0 03/06/23 00:51 03/05/23 23:56 03/05/23 23:01 Nasal Cannula 2.0 Laboratory Results Laboratory Results - last 24 hr 03/05/23 03/05/23 03/05/23 10:40 11:50 Unknown WBC RBC Hgb Hct MCV MCH MCHC RDW Std Deviation RDW Coeff of Crow Plt Count MPV Reticulocyte % (Auto) 1.3 Reticulocyte # 0.03 Haptoglobin Pending Sodium 138 Potassium 3.5 Chloride 107 Carbon Dioxide 23 Anion Gap 8 BUN 35 H Creatinine 2.99 H Est Cr Clr Drug Dosing 22.3 Est GFR ( Amer) 22.4 Est GFR (Non-Af Amer) 19.4 BUN/Creatinine Ratio 11.7 Glucose 90 Calcium 8.9 Phosphorus 3.2 Iron 36 TIBC 225 L Unsaturated IBC 189 Transferrin % Sat 16 L Ferritin 92.5 Lactate Dehydrogenase 234 Total Protein (PEP) Albumin 3.0 L Albumin (PEP) Lusfs-2-Yxprfdvtc Immvn-1-Usbkgmgus Osay-2-Skhhldrs Xrob-9-Yfynuvyc Gamma Globulins Monoclonal Peak 3 Ser Monoclonl Protein Ser Monoclonal Prot 2 PEP Interpretation Folate 11.35 U Random Total Protein Pending Ur Creatinine mg/dL Pending Protein/Creatinin Ratio Pending Urine Albumin (%) Pending U Hhhax-7-Tnepyvkc (%) Pending U Anqpt-3-Nmsvhtkt (%) Pending U Beta Globulin (%) Pending U Gamma Globulin (%) Pending U Abnormal Prot Band 1 Pending U Abnormal Prot Band 2 Pending U Abnormal Prot Band 3 Pending Urine PEP Interpret Pending CARLOS Screen Pending Anti-Proteinase 3 Pending Anti-Myeloperoxidase Pending ANCA Pending Glomerular Base Memb Ab Pending Complement C3 Pending Complement C4 Pending Free [place] LC, Quant Pending Free Lambda LC, Quant Pending Free [place]/Lambda Ratio Pending 03/06/23 06:32 WBC 3.19 L RBC 2.48 L Hgb 7.8 L Hct 24.4 L MCV 98.4 MCH 31.5 MCHC 32.0 RDW Std Deviation 50.3 H RDW Coeff of Crow 13.8 Plt Count 159 MPV 11.0 Reticulocyte % (Auto) Reticulocyte # Haptoglobin Sodium 140 Potassium 3.4 L Chloride 108 H Carbon Dioxide 25 Anion Gap 7 BUN 29 H Creatinine 2.96 H Est Cr Clr Drug Dosing 22.7 Est GFR ( Amer) 22.7 Est GFR (Non-Af Amer) 19.6 BUN/Creatinine Ratio 9.8 L Glucose 88 Calcium 9.0 Phosphorus 3.7 Iron TIBC Unsaturated IBC Transferrin % Sat Ferritin Lactate Dehydrogenase Total Protein (PEP) Pending Albumin 2.9 L Albumin (PEP) Pending Lydfq-8-Kbmkutmsg Pending Mywyg-1-Iunbiuucx Pending Aqdr-3-Kutscbkf Pending Xnue-3-Oqugumtd Pending Gamma Globulins Pending Monoclonal Peak 3 Pending Ser Monoclonl Protein Pending Ser Monoclonal Prot 2 Pending PEP Interpretation Pending Folate U Random Total Protein Ur Creatinine mg/dL Protein/Creatinin Ratio Urine Albumin (%) U Dlmsn-4-Xobpkyaq (%) U Kfkxm-6-Isswvkou (%) U Beta Globulin (%) U Gamma Globulin (%) U Abnormal Prot Band 1 U Abnormal Prot Band 2 U Abnormal Prot Band 3 Urine PEP Interpret CARLOS Screen Anti-Proteinase 3 Anti-Myeloperoxidase ANCA Glomerular Base Memb Ab Complement C3 Complement C4 Free [place] LC, Quant Free Lambda LC, Quant Free [place]/Lambda Ratio Diagnostic Findings RENAL ULTRASOUND COMPARISON STUDY: CT of the abdomen and pelvis April 01, 2019. FINDINGS: The right kidney measures 11.2 x 5.9 x 6.4 cm and the left measures 11.5 x 5.9 x 4.8 cm. The kidneys are mildly echogenic. There is no hydronephrosis. Multiple anechoic right renal lesions measure up to 4.9 cm. These represent cysts. There is a 4.4 x 4.3 x 3.8 cm cystic lesion arising from the upper pole of the left kidney. This has multiple thin septations. This has slightly increased in size since ultrasound April 01, 2019. Several additional left renal cysts are noted. Ureteral jets were not visualized. Postvoid residual was 8 cc. Renal calculi are identified. IMPRESSION: 1. No significant post void residual. 2. No hydronephrosis. Increased renal echogenicity. 3. Multiple bilateral renal cysts, including a 4.4 cm septated cyst arising from the upper pole of the left kidney. PG Care Time/CCT Total # of Minutes Spent Total Time Spent with Patient: Total time spent is greater than 50% in coordination of care (as documented) at patient's floor/unit and/or counseling patient: Coding Level of Care Code 17832 SUB INP/OBS CARE 3/50MIN Diagnoses BUDDY (acute kidney injury) N17.9 Anemia D64.9 Anemia type: unspecified type Fever R50.9 Fever type: unspecified Prostate cancer C61 (2) Anemia Anemia type: unspecified type Qualified Code(s): D64.9 - Anemia, unspecified (3) Fever Fever type: unspecified Qualified Code(s): R50.9 - Fever, unspecified
[2023-03-06] MEDS ORDERED: PLASMA-LYTE A 1,000 ML IV ONE (12:33)
[2023-03-06] MEDS ORDERED: IRON SUCROSE 300 MG in SODIUM CHLORIDE 0.9% 250 ML IV ONE (13:00)
[2023-03-06] MEDS: ACETAMINOPHEN 325 MG TAB PO PRN ×2 (13:56→22:58)
[2023-03-06] MEDS: amLODIPine BESYLATE 5 MG TAB PO SCH (17:15)
[2023-03-06] MEDS: CYANOCOBALAMIN (B-12) 500 MCG TABLET PO SCH (17:45)
--- OUTSIDE RECORDS SUMMARY | 2023-03-06 17:51 | External Medical Summary | Summary of Care ---
Author Name Unknown Organization [facility] [address] [address] Phone [phone] Care Team Providers Care Sheet Metal Assembler And Riveter Name Role Phone Jose Zambrano MD Primary Care Provider Reason for Visit * Reason Onset Date Comments Other 12/25/2022 Encounter Details Date Type Department Care Team (Late st Contact Info) Description 12/25/2022 Telephone Gastroenterology, [facility] [address] [place] [phone] Nigel Cabello MD [address] [place] [address] Other Allergies No known active allergiesdocumented as of this encounter (statuses as of 03/03/2023) Medications Medication Sig Dispensed Refills Start Date End Date Status rosuvastatin (CRESTOR) 20 MG Tablet Take 1 Tablet by mouth in the morning. 0 Active amlodipine-benazepri l 5-10 mg per cap (LOTREL) 5-10 MG per capsule Take 1 Cap by mouth daily. 0 Active chlorthalidone (HYGROTON) 25 MG Tablet Take 1 Tablet by mouth in the morning. 0 Active losartan (COZAAR) 50 MG Tablet Take 1 Tablet by mouth in the morning. 0 Active Tamsulosin HCl 0.4 MG Oral Capsule Take 0.4 mg by mouth daily. 0 Active allopurinol (ZYLOPRIM) 150 MG TABS Take 1 Tablet by mouth in the morning. 0 Active pantoprazole (PROTONIX) 40 MG TBEC Take 1 Tablet by mouth in the morning. 0 Active dicyclomine (BENTYL) 10 MG Capsule Take 1 Capsule by mouth 2 times a day for 90 days. 180 Cap 0 01/03/2019 Active Additional Information Patient not taking.Reported on 12/14/2022 hydrALAZINE HCl 100 MG Oral Tablet Take 1 Tablet by mouth in the morning and 1 Tablet before bedtime. 0 Active Metoprolol Succinate ER 25 MG Oral Tablet Extended Release 24 Hour (toPROL XL) Take 2 Tablets by mouth in the morning. 0 Active Solifenacin Succinate 10 MG Oral Tablet (VESIcare) Take 1 Tablet by mouth in the morning. 0 Active Levothyroxine Sodium 25 MCG Oral Tablet (Levoxyl) Take 1 Tablet by mouth daily first thing in the morning. (at least 30 min prior to breakfast or other meds) 0 Active Isosorbide Mononitrate ER 30 MG Oral Tablet Extended Release 24 Hour (Imdur) Take 1 Tablet by mouth in the morning. 0 Active documented as of this encounter (statuses as of 03/03/2023) Active Problems Problem Noted Date Diagnosed Date Diverticulosis of colon 10/10/2018 documented as of this encounter (statuses as of 03/03/2023) Social History Tobacco Use Types Packs/Day Years Used Date Smoking Tobacco: Never Smokeless Tobacco: Never Sex and Gender Information Value Date Recorded Sex Assigned at Not on file Gender Identity Not on file Sexual Orientation Not on file Job Start Date Occupation Industry Not on file Not on file Not on file documented as of this encounter Miscellaneous Notes * Addendum Note - Nigel Cabello MD - 03/03/2023 4:49 PM ESTAddended by: NIGEL CABELLO on: 03/03/2023 04:49 PM Modules accepted: Orders * Telephone Encounter - Nigel Cabello MD - 03/03/2023 4:48 PM EST Done * Telephone Encounter - Jovani Anand OSA - 12/29/2022 2:29 PM EDT The time isnt there to add this to the procedure at this moment. Note put on the schedule to add it if anyone falls off * Telephone Encounter - Nigel Cabello MD - 12/27/2022 12:40 PM EDT I spoke to him and discussed all the incidental findings. From GI stand point, will add on EGD to his upcoming colonoscopy. He will discuss the kidney, adrenal and sclerotic bone lesion with his PCP/urologist. * Telephone Encounter - Kelli Hilario RN - 12/25/2022 1:51 PM EDT Patient and calling in . Would like to review to CT scan with Dr. Cabello. They got a letter in the mail that they should call and speak with us. I am assuming this is an auto generated letter. She asked I sent this high priority. Please call back on pts 's phone [phone] documented in this encounter Plan of Treatment Upcoming Encounters Date Type Department Care Team (Latest Contact Info) Description 05/21/2023 1:00 PM EST Hospital Encounter [facility]O [facility], Endoscopy Room [facility] [address] [place] [phone] Nigel Cabello MD [address] [place] [address] 05/21/2023 1:00 PM EST - 05/21/2023 1:45 PM EST Surgery ENDO [facility], Endoscopy Room [facility] [address] [place] [phone] Nigel Cabello MD [address] [place] [address] COLONOSCOPY FLEXIBLE PROXIMAL DIAGNOSTIC 05/31/2023 10:20 AM EST Office Visit Gastroenterology, [facility] [address] [place] [address] Nigel Cabello MD [address] [place] [address] Scheduled Orders Name Type Priority Associated Diagnoses Orde r Schedule EGD, FLEXIBLE, DIAGNOSTIC Procedures Routine Epigastric pain Ordered: 03/03/2023 Scheduled Procedures Name Priority Associated Diagnoses Date/Ti me COLONOSCOPY FLEXIBLE PROXIMA L DIAGNOSTIC Recall History of colon polyps Diverticulosis of colon Abnormal CT of the abdomen 05/21/2023 1:00 PM EST ESOPHAGOGASTRODUODENOSCOPY ( EGD), FLEXIBLE, TRANSORAL, DIAGNOSTIC Recall History of colon polyps Diverticulosis of colon Abnormal CT of the abdomen 05/21/2023 1:00 PM EST Health Maintenance Due Date Last Done Comments COVID-19 Vaccine (#1) 01/29/1946 Depression Screening 1958 Hepatitis C Screening 1963 TSH 1964 DTaP,Tdap,and Td Vaccines (1 - Tdap) 1965 Zoster Vaccines (1 of 2) 1996 Pneumococcal Vaccine: 65+ Years (1 - PCV) 07/31/2011 Influenza Vaccine (FLU shot) (#1) 2022 COLONOSCOPY-EVERY 5 YRS AGES 18-100 08/20/2023 08/19/2018, 08/19/2018 GARDASIL-HPV IMMUNIZATION SERIES Aged Out No longer eligible b ased on patient's age to complete this topic Hepatitis B Aged Out No longer eligi ble based on patient's age to complete this topic MENINGOCOCCAL (MENACTRA/MENVEO) Aged Out No longer eligible b ased on patient's age to complete this topic documented as of this encounter Medical Devices Not on filedocumented as of this encounter Visit Diagnoses Diagnosis Epigastric pain- Primary Abdominal pain, epigastric History of colon polyps Personal history of colonic polyps Diverticulosis of colon Diverticulosis of colon (without mention of hemorrhage) Abnormal CT of the abdomen Nonspecific (abnormal) findings on radiological and other examination of abdominal area, including retroperitoneum documented in this encounter Care Teams Sheet Metal Assembler And Riveter Relationship Specialty Start Date End Date Jose Zambrano MD PCP - General 10/18/06 documented as of this encounter
--- OUTSIDE RECORDS SUMMARY | 2023-03-06 17:51 | External Medical Summary | Summary of Care ---
Author Name Unknown Organization [facility] Address [address] [address] Phone [phone] Care Team Providers Care Facilities Operator Name Role Phone Jose Zambrano MD Primary Care Provider Reason for Visit * Reason Onset Date Comments Other 12/25/2022 Encounter Details Date Type Department Care Team (Late st Contact Info) Description 12/25/2022 Telephone Gastroenterology, [facility] [address] [place] [address] Nigel Bhardwaj MD [address] [place] [address] Other Allergies No known active allergiesdocumented as [...] as of this encounter Miscellaneous Notes * Telephone Encounter - Jovani Anand OSA - 12/29/2022 2:29 PM EDT The time isnt there to add this to the procedure at this moment. Note put on the schedule to add it if anyone falls off * Telephone Encounter - Nigel Bhardwaj MD - 12/27/2022 12:40 PM EDT I [...] to review to CT scan with Dr. Bhardwaj. They got a letter in the mail that they should call and speak with us. I am assuming this is an auto generated letter. She asked I sent this high priority. Please call back on pts 's phone [phone] documented in this encounter Plan of Treatment Upcoming Encounters Date Type Department Care Team (Latest Contact Info) Description 05/21/2023 1:00 PM EST Hospital Encounter ENDO [facility], Endoscopy Room [facility] [address] [place] [phone] Nigel Bhardwaj MD [address] [place] [address] 05/21/2023 1:00 PM EST - 05/21/2023 1:45 PM EST Surgery ENDO [facility], Endoscopy Room [facility] [address] [place] [phone] Nigel Bhardwaj MD [address] [place] [address] COLONOSCOPY FLEXIBLE PROXIMAL DIAGNOSTIC 05/31/2023 10:20 AM EST Office Visit Gastroenterology, [facility] [address] [address] Nigel Bhardwaj MD [address] [place] [address] Scheduled Procedures Name Priority Associated Diagnoses Date/Ti [...] Not on filedocumented as of this encounter Care Teams Facilities Operator Relationship Specialty Start Date End Date Jose Zambrano MD PCP - General 10/18/06 documented as of this encounter
[2023-03-06] MEDS: ROSUVASTATIN CALCIUM 10 MG TAB PO SCH (22:56)
[2023-03-06] MEDS: allopurinoL 100 MG TAB PO SCH (22:56)
[2023-03-06] MEDS: METOPROLOL SUCC 25MG EXT REL TAB PO SCH (22:57)
[2023-03-07] MEDS: LEVOTHYROXINE SODIUM 25 MCG TABLET PO SCH (06:05)
--- NOTE | 2023-03-07 07:02 | Ultrasound Report ---
US duplex renal artery CLINICAL HISTORY: Acute kidney injury. COMPARISON STUDY: Renal ultrasound 02/19/2023. FINDINGS: Right kidney measures 11.9 cm left kidney measures 12.4 cm. Bilateral renal cysts are again noted. This includes a septated cyst within the upper pole of the left kidney which measures 5.1 cm. The bilateral renal veins are patent. Peak systolic velocity within the right renal artery is 91 cm/ s. Peak systolic velocity within the left renal artery is 161 cm/s proximally. Resistive indices of t he renal arcuate arteries are less than 0.73. IMPRESSION: No evidence for renal artery stenosis. ACT 112: Negative or not required by law. Electronically signed by: Rodrigue Saldivar M.D. 03/07/2023 7:00 AM
[2023-03-07 07:09] LABS: Albumin Level 2.8 gm/dl (3.4-5.0); BUN Creatinine Ratio 9.4 (10-20); Calcium 8.8 mg/dl (8.6-10.3); Creatinine Clr Calc Pharmacy 21.7 ml/min; Est GFR (African American) 21.6 ml/min; Est GFR (Non-African American) 18.6 ml/min; Phosphorus 4.4 mg/dl (2.5-4.9); Potassium 3.7 mmol/L (3.5-5.1)
[2023-03-07 07:15] LABS: Basophils # (auto) 0.02 K/uL (0.00-0.20); Basophils % (auto) 0.6 %; Eosinophils # (auto) 0.14 K/uL (0.00-0.50); Eosinophils % (auto) 4.4 %; Hematocrit (blood only) 25.1 % (42.0-52.0); Hemoglobin 8.1 g/dl (14.0-18.0); Immature Granulocytes # (auto) 0.02 K/uL (0.01-0.20); Immature Granulocytes % (auto) 0.6 %; Lymphocytes # (auto) 0.29 K/uL (1.20-3.40); Mean Corpuscular Hemoglobin 31.4 pg (25.0-34.0); Mean Corpuscular Hgb Conc 32.3 g/dL (32.0-36.0); Mean Corpuscular Volume 97.3 fL (80.0-100.0); Mean Platelet Volume 11.3 fL (9.4-12.4); Monocytes # (auto) 0.27 K/uL (0.11-0.59); Monocytes % (auto) 8.4 %; Neutrophils # (auto) 2.47 K/uL (1.40-6.50); Platelet Count 149 K/uL (130-400); RDW Coefficient of Variation 13.9 % (11.5-14.5); RDW Standard Deviation 49.8 fL (36.4-46.3); Red Blood Count 2.58 M/uL (4.70-6.10); White Blood Count 3.21 K/ul (4.8-10.8)
--- NOTE | 2023-03-07 08:01 | Hospitalist Progress Note ---
Date of Service March 07, 2023 Assessment & Plan (1) Fever: (2) BUDDY (acute kidney injury): (3) Pancytopenia: (4) Hypothyroidism: (5) CAD (coronary artery disease): (6) Vitamin B12 deficiency: (7) Anemia: (8) Orthopnea: Plan 77 y/o male reporting significant decline in his health over the last two months. Patient with fatigue, episodes of chills and rigors. He had a fever today prior to arrival at 101 as well as hypoxia with saturations of 88%. Labs as above with pancytopenia, worsening renal function and mildly elevated troponin. #Fever #General Malaise #Pancytopenia -Etiology unclear. With pancytopenia and vague constitutional symptoms -CT without obvious consolidation. -Doxycycline 100 mg IV BID empirically, consider switching to atovaquone and azithromycin if no clinical improvement -Tylenol PRN for fever -Babesia smear negative, Anaplasmosis smear negative, Lyme negative, respiratory BioFire negative, -Blood cultures negative x48h. -Babesia PCR pending, immunology labs pending, UA labs pending, If above workup is unrevealing could consider sending Q-fever labs, blood cultures for HACEK organisms #Anemia #Vitamin B12 deficiency -Patient with a 8.2 hemoglobin on admission. 8.1 on 03/07. -Iron deficiency noted. Scheduled for outpatient GI evaluation. -Venofer given on 03/06. -Vitamin B12 deficiency, 1000 mcg vitamin B12 QAM started on 03/06. -We will also order Hemoccult stool testing. #BUDDY #?Glomerulonephritis -Elevated BUN and Cr to 35 and 3.15, respectively. -UA with protein and blood. CK normal. -Renal artery duplex showed no evidence for renal artery stenosis. -Consistent with intrinsic/intrarenal kidney injury with -FeNa 2.6%. -Nephrology consult -serologic and paraproteinemia work-up, hemolysis labs - LDH, haptoglobin, reticulocyte count, iron studies, B12, folate -Consider AIN, may also need a renal biopsy for consideration of multicystic kidneys -Creatinine is stable though still elevated. -Creatinine kinase normal, PSA less than 0.008 -ESR slightly elevated at 68 -Brucellosis antibody titer requested today for possible Q fever. #orthopnea -Patient describes symptoms consistent with orthopnea. -Previous echo with signs of LVH and aortic sclerosis. -Repeat Echo showed a EF of 55-60% with mild concentric left LVH. No evidence of heart failure. -We will add on amlodipine 5 mg every morning. #CAD #HTN -Patient denies chest pain. Trop peaked at 34.0. -Holding hydralazine 200 mg po BID due to possibly lupus-like reaction. -Holding isosorbide - believes symptoms started after initiation of this medication. -Holding losartan in setting of BUDDY. -Continue metoprolol 25 mg QHS. Continue Crestor. -Add on amlodipine 5 mg every morning at this time. #Hypothyroidism -Chronic. TSH within normal limits at 2.081. -Continue Synthroid Code status: full DVT ppx: low risk, ambulation FENGI: HH diet Dispo: PCU Admission and Anticipated Discharge Date Admission Date: March 05, 2023 Supervising Physician Co-Signing Physician Notes Resident Physician Supervision Note: I independently interviewed and examined the patient and verified the valenzuela history and physical, reviewed labs and image studies and agree with resident findings and care plan. No fever for ~48hrs. Fever with anemia and mild leukopenia -Tick borne illness work up negative so far. PCR test pending -cultures negative. -continue doxycycline. -Q fever testing ordered by nephro Anemia -Hb stable - 8.1 today. -replace b 12 -Hemoccult stool testing pending -IV venofer x2 and scheduled for GI work up as outpatient. BUDDY on CKD III -Creatinine higher today. Nephro note - "UA notable for protein. Persistent microscopic hematuria. Unclear if hematuria is glomerular or non-glomerular but no RBC casts or dysmorphic RBCs were appreciated. Clinical presentation not consistent with RPGN but cannot exclude underlying GN. ESRD is elevated at 68. Serologic evaluation pending. Peripheral smear without evidence of TMA. Also, cannot exclude AIN. BP did improve with amlodipine. Isosorbide was discontinued due to onset of symptoms following initiation of medication. I would also consider continuing to hold hydralazine as tolerated due to potential for lupus-like reaction. Ultimately, kidney biopsy may be required for definitive diagnosis with special consideration given to multicystic kidneys. However, I do think renal biopsy could safely be performed if necessary and would strongly consider this option if we do not see improvement in the near future." Ambulation Subjective Patient seen bedside this morning. States that he is feeling okay today. No issues or concerns. Review of Systems Review of Systems: All systems reviewed & are unremarkable except as noted in Subjective Physical Exam Physical Exam: Constitutional: well-appearing, no acute distress HEENT: NCAT, no conjunctival injection CV: regular rhythm, no murmur appreciated, extremities well-perfused, no LE edema Resp: CTABL, no wheezes/rales/rhonchi appreciated, no increased work of breathing GI: soft, nondistended, nontender, BS normoactive MSK: no gross deformities appreciated Skin: warm, dry, no rash appreciated Neuro: alert, oriented, no focal neurologic deficit appreciated Results & Data Results & Data Vital Signs (Past 12 Hours) Vital Signs Temp Pulse Pulse Resp BP Pulse Ox O2 Del Method 03/07/23 07:52 36.7 C 70 18 102/70 90 Room Air 03/07/23 07:00 62 03/07/23 04:58 Room Air 03/07/23 03:01 37.1 C 74 18 167/74 H 93 Room Air 03/06/23 23:20 37.5 C 80 18 191/71 H 91 Room Air 03/06/23 22:50 73 Resident Activity Tracking Resident Involvement: Resident Care Provided Care Provided: Adult Hospital Medicine (1) Fever Fever type: unspecified Qualified Code(s): R50.9 - Fever, unspecified (7) Anemia Anemia type: unspecified type Qualified Code(s): D64.9 - Anemia, unspecified
[2023-03-07] MEDS: CYANOCOBALAMIN (B-12) 500 MCG TABLET PO SCH (08:39)
[2023-03-07] MEDS: PANTOprazole 40 MG TAB PO SCH (08:40)
[2023-03-07] MEDS: amLODIPine BESYLATE 5 MG TAB PO SCH (08:40)
[2023-03-07] MEDS: POLYETHYLENE (MIRALAX) 17 GM PACK PO SCH (08:41)
[2023-03-07] MEDS: PSYLLIUM or GUAR GUM FIBER POWDER PACKET PO SCH (08:41)
[2023-03-07] MEDS: guaiFENesin 600 MG TABCR PO SCH ×2 (08:41→21:14)
[2023-03-07] MEDS: OXYBUTYNIN CHLORIDE XL 5 MG TABCR PO SCH (08:41)
[2023-03-07] MEDS ORDERED: IRON SUCROSE 200 MG in 0.9 % SODIUM CHLORIDE 100 ML IV ONE (08:45)
--- NOTE | 2023-03-07 12:19 | Nephrology Progress Note ---
Date of Service March 07, 2023 Assessment & Plan (1) BUDDY (acute kidney injury): Plan: Etiology unclear. Non-oliguric. Electrolytes acceptable. Volume status euvolemic. No current indication for LINING PRESSER. Creatinine stable. UA notable for protein. Persistent microscopic hematuria. Unclear if hematuria is glomerular or non-glomerular but no RBC casts or dysmorphic RBCs were appreciated. Clinical presentation not consistent with RPGN but cannot exclude underlying GN. ESRD is elevated at 68. Serologic evaluation pending. Peripheral smear without evidence of TMA. Also, cannot exclude AIN. BP did improve with amlodipine. Isosorbide was discontinued due to onset of symptoms following initiation of medication. I would also consider continuing to hold hydralazine as tolerated due to potential for lupus-like reaction. Ultimately, kidney biopsy may be required for definitive diagnosis with special consideration given to multicystic kidneys. However, I do think renal biopsy could safely be performed if necessary and would strongly consider this option if we do not see improvement in the near future. Prior imaging reviewed. Notable calcific vascular disease involving renal arteries. No hemodynamically significant CINDA. Peak velocity elevated at 160 cm/s on the left. RI 0.73. Document strict I/O's. Repeat metabolic profile tomorrow AM. Medications appropriately dosed for kidney function. (2) Anemia: Plan: H/H stable. Iron deficiency noted. No melena or hematochezia. Scheduled for outpatient GI evaluation. Hemoccult pending. B12 provided today. IV Venofer 300 mg provided yesterday. Additional venofer 200 mg IV today. (3) Fever: Plan: Defervesced. Remains on Doxycycline. No obvious source of infection identified. Testing for anaplasmosis and Lyme negative. Blood cultures negative to date. (4) Prostate cancer: Plan: PSA remains reassuring at <1. Admission and Anticipated Discharge Date Admission Date: March 05, 2023 Subjective No acute events overnight. Afebrile since the evening of March 05. Keith continues to endorse fatigue and reduced appetite. He continues to have dry mouth and increased thirst. Drinking plenty of fluids. He continues to endorse arthralgias and some swelling in his hands. He denies any rigors or shaking chills overnight or this AM but continues to experience cold intolerance. He also continues to endorse a mild sore throat. There is persistent tenderness along the anterior cervical chain on the left. He has had this symptom and fullness in the area for at least 1 year. He denies dysphagia. Keith notes that approximately 1 year ago he underwent a swallowing study and MRI (previously reported as CT) of the neck at [facility] coordinated by his PCP. Discomfort in the next is not new. He denies dyspnea. No hematuria. BP excellent. Hydralazine held today. Review of Systems Review of Systems: All systems reviewed & are unremarkable except as noted in HPI & below Constitutional: + fatigue and + malaise Gastrointestinal: no dysphagia, no change in stools, no blood in stools and no melena Musculoskeletal: + joint pain and + stiffness Physical Exam Constitutional: well developed; no acute distress Eyes: + conjunctival abnormality (pallor) and + anicteric sclerae ENMT: Mouth: + dry oral mucous membranes; no oral mucosal abnormality Neck: normal visual inspection, trachea midline, + neck tender (mildly tender submanibular and some tenderness involving cervical chain LN/) and + thick neck Respiratory: normal respiratory effort Auscultation: lungs clear to auscultation bilaterally Cardiovascular: Rate/Rhythm: regular rate Heart Sounds: normal S1 and normal S2 Extremities: + pedal edema (trace); no edema Musculoskeletal: Extremities: no cyanosis and no clubbing Skin: normal turgor; no rashes and no jaundice Neurologic: Motor/Sensory: no tremor and no asterixis Psychiatric: Orientation: alert and oriented x 3 Results & Data Vital Signs (Past 12 Hours) Vital Signs Temp Pulse Pulse Resp BP Pulse Ox O2 Del Method 03/07/23 07:52 36.7 C 70 18 102/70 90 Room Air 03/07/23 07:00 62 03/07/23 04:58 Room Air 03/07/23 03:01 37.1 C 74 18 167/74 H 93 Room Air Laboratory Results Laboratory Results - last 24 hr 03/06/23 03/07/23 06:32 05:33 WBC 3.21 L RBC 2.58 L Hgb 8.1 L Hct 25.1 L MCV 97.3 MCH 31.4 MCHC 32.3 RDW Std Deviation 49.8 H RDW Coeff of Crow 13.9 Plt Count 149 MPV 11.3 Immature Gran % (Auto) 0.6 Neut % (Auto) 77.0 Lymph % (Auto) 9.0 [place] % (Auto) 8.4 Eos % (Auto) 4.4 Baso % (Auto) 0.6 Neut # (Auto) 2.47 Lymph # (Auto) 0.29 L [place] # (Auto) 0.27 Eos # (Auto) 0.14 Baso # (Auto) 0.02 Immature Gran # (Auto) 0.02 Plt Count ,Citrate Cancelled ESR 64 H Sodium 140 Potassium 3.7 Chloride 107 Carbon Dioxide 26 Anion Gap 7 BUN 29 H Creatinine 3.09 H Est Cr Clr Drug Dosing 21.7 Est GFR ( Amer) 21.6 Est GFR (Non-Af Amer) 18.6 BUN/Creatinine Ratio 9.4 L Glucose 87 Calcium 8.8 Phosphorus 4.4 Total Creatine Kinase 59 Albumin 2.8 L Prostate Specific Ag < 0.008 Vitamin B12 120 L Double Strand DNA Ab Pending Q Fever Phase I IgG Ab Pending Q Fever Phase I IgM Ab Pending Q Fever Phase II IgG Ab Pending Q Fever Phase II IgM Ab Pending Diagnostic Findings US duplex renal artery COMPARISON STUDY: Renal ultrasound 02/19/2023. FINDINGS: Right kidney measures 11.9 cm left kidney measures 12.4 cm. Bilateral renal cysts are again noted. This includes a septated cyst within the upper pole of the left kidney which measures 5.1 cm. The bilateral renal veins are patent. Peak systolic velocity within the right renal artery is 91 cm/s. Peak systolic velocity within the left renal artery is 161 cm/s proximally. Resistive indices of the renal arcuate arteries are less than 0.73. IMPRESSION: No evidence for renal artery stenosis. PG Care Time/CCT Total # of Minutes Spent Total Time Spent with Patient: Total time spent is greater than 50% in coordination of care (as documented) at patient's floor/unit and/or counseling patient: Coding Level of Care Code 31096 SUB INP/OBS CARE 3/50MIN Diagnoses BUDDY (acute kidney injury) N17.9 Anemia D64.9 Anemia type: unspecified type Fever R50.9 Fever type: unspecified Prostate cancer C61 (2) Anemia Anemia type: unspecified type Qualified Code(s): D64.9 - Anemia, unspecified (3) Fever Fever type: unspecified Qualified Code(s): R50.9 - Fever, unspecified
[2023-03-07] MEDS: ACETAMINOPHEN 325 MG TAB PO PRN (21:12)
[2023-03-07] MEDS: BENZONATATE 100 MG CAPSULE PO PRN (21:12)
[2023-03-07] MEDS: METOPROLOL SUCC 25MG EXT REL TAB PO SCH (21:13)
[2023-03-07] MEDS: ROSUVASTATIN CALCIUM 10 MG TAB PO SCH (21:13)
[2023-03-07] MEDS: allopurinoL 100 MG TAB PO SCH (21:13)
[2023-03-08] MEDS: LEVOTHYROXINE SODIUM 25 MCG TABLET PO SCH (06:02)
--- NOTE | 2023-03-08 07:14 | Hospitalist Progress Note ---
Date of Service March 08, 2023 Assessment & Plan (1) Fever: Plan: 77 y/o male reporting significant decline in his health over the last two months. Patient with fatigue, episodes of chills and rigors. He had a fever today prior to arrival at 101 as well as hypoxia with saturations of 88%. Labs as above with pancytopenia, worsening renal function and mildly elevated troponin. #Fever #General Malaise #Pancytopenia -Etiology unclear. With pancytopenia and vague constitutional symptoms -CT without obvious consolidation. -Doxycycline 100 mg IV BID empirically, consider switching to atovaquone and azithromycin if no clinical improvement -Tylenol PRN for fever -Babesia smear negative, Anaplasmosis smear negative, Lyme negative, respiratory BioFire negative, -Blood cultures negative x48h. -Babesia PCR pending, immunology labs pending, UA labs pending, If above workup is unrevealing could consider sending Q-fever labs, blood cultures for HACEK organisms #Anemia #Vitamin B12 deficiency -Patient with a 8.2 hemoglobin on admission. 8.1 on 03/07. -Iron deficiency noted. Scheduled for outpatient GI evaluation. -Venofer given on 03/06. -Vitamin B12 deficiency, 1000 mcg vitamin B12 QAM started on 03/06. -We will also order Hemoccult stool testing. #BUDDY #?Glomerulonephritis -Elevated BUN and Cr to 35 and 3.15, respectively. -UA with protein and blood. CK normal. -Renal artery duplex showed no evidence for renal artery stenosis. -Consistent with intrinsic/intrarenal kidney injury with -FeNa 2.6%. -Nephrology consult -serologic and paraproteinemia work-up, hemolysis labs - LDH, haptoglobin, reticulocyte count, iron studies, B12, folate -Consider AIN, may also need a renal biopsy for consideration of multicystic kidneys -Creatinine is stable though still elevated. -Creatinine kinase normal, PSA less than 0.008 -ESR slightly elevated at 68 -Brucellosis antibody titer requested today for possible Q fever. - Plan for transfer for renal biopsy #orthopnea -Patient describes symptoms consistent with orthopnea. -Previous echo with signs of LVH and aortic sclerosis. -Repeat Echo showed a EF of 55-60% with mild concentric left LVH. No evidence of heart failure. -We will add on amlodipine 5 mg every morning. #CAD #HTN -Patient denies chest pain. Trop peaked at 34.0. -Holding hydralazine 200 mg po BID due to possibly lupus-like reaction. -Holding isosorbide - believes symptoms started after initiation of this medication. -Holding losartan in setting of BUDDY. -Continue metoprolol 25 mg QHS. Continue Crestor. -Add on amlodipine 5 mg every morning at this time. #Hypothyroidism -Chronic. TSH within normal limits at 2.081. -Continue Synthroid Code status: full DVT ppx: low risk, ambulation FENGI: HH diet Dispo: transfer for renal biopsy (2) BUDDY (acute kidney injury): (3) Pancytopenia: (4) Hypothyroidism: (5) CAD (coronary artery disease): (6) Vitamin B12 deficiency: (7) Anemia: (8) Orthopnea: Plan Admission and Anticipated Discharge Date Admission Date: March 05, 2023 Supervising Physician Co-Signing Physician Notes I personally examined the patient and verified all valenzuela points of history and exam, discussed case, and agree with decision making with Dr Solano Generally feeling okay. Discussed with nephrology, with creatinine continuing to rise, nephrology felt that renal biopsy may be of benefit. Repeat CT scan shows angles at which a biopsy could be obtained, but unfortunately not able to be obtained at this facility. Discussed with patient, , [id number] in depth, answered all questions the best my ability and to their satisfaction, they are in agreement with transfer for renal biopsy. Vitals noted, in general he is awake and alert pleasant no distress. HEENT normocephalic atraumatic mucous membranes moist. Breathing unlabored no accessory muscle use good effort. Skin shows no rashes no pallor or icterus. Fever, acute renal failuredifferentials really ranged from infection with postinfectious glomerulonephritis/immune mediated nephritis as the whole picture, or a slowly progressive CKD over the last 6 months with his acute picture all stemming from his symptoms from his infection and the renal failure is an incidental finding. Given this broad differential, and no clear "telling signs" from her work-up thus far, I agree that a renal biopsy could be quite helpful. An extensive discussions with patient and family, all in agreement to transfer for renal biopsy makes the most sense. Accepted at [facility]. Otherwise as above Subjective Pt seen at bedside this morning. Was sitting up, eating breakfast. No complaints. Review of Systems Review of Systems: As per above Physical Exam Physical Exam: Constitutional: well-appearing, no acute distress HEENT: NCAT, no conjunctival injection CV: regular rhythm, no murmur appreciated, extremities well-perfused, no LE edema Resp: CTABL, no wheezes/rales/rhonchi appreciated, no increased work of breathing GI: soft, nondistended, nontender MSK: no gross deformities appreciated Skin: warm, dry, no rash appreciated Neuro: alert, oriented, no focal neurologic deficit appreciated Results & Data Results & Data Vital Signs (Past 12 Hours) Vital Signs Temp Pulse Pulse Resp BP BP Pulse Ox 03/08/23 04:41 03/08/23 04:40 36.6 C 97 H 16 154/75 H 95 03/08/23 00:00 36.7 C 70 18 183/62 H 96 03/07/23 22:01 63 03/07/23 20:53 157/73 H 03/07/23 19:29 36.5 C 63 18 185/67 H 95 O2 Del Method 03/08/23 04:41 Room Air 03/08/23 04:40 Room Air 03/08/23 00:00 Room Air 03/07/23 22:01 03/07/23 20:53 03/07/23 19:29 Room Air Resident Activity Tracking Resident Involvement: Resident Care Provided Care Provided: Adult Hospital Medicine (1) Fever Fever type: unspecified Qualified Code(s): R50.9 - Fever, unspecified (7) Anemia Anemia type: unspecified type Qualified Code(s): D64.9 - Anemia, unspecified
[2023-03-08] MEDS: guaiFENesin 600 MG TABCR PO SCH ×2 (08:08→21:03)
[2023-03-08] MEDS: OXYBUTYNIN CHLORIDE XL 5 MG TABCR PO SCH (08:08)
[2023-03-08] MEDS: PSYLLIUM or GUAR GUM FIBER POWDER PACKET PO SCH (08:09)
[2023-03-08] MEDS: CYANOCOBALAMIN (B-12) 500 MCG TABLET PO SCH (08:09)
[2023-03-08] MEDS: amLODIPine BESYLATE 5 MG TAB PO SCH (08:09)
[2023-03-08] MEDS: PANTOprazole 40 MG TAB PO SCH (08:09)
[2023-03-08 08:25] LABS: Hematocrit (blood only) 23.4 % (42.0-52.0); Hemoglobin 7.5 g/dl (14.0-18.0); Mean Corpuscular Hemoglobin 31.4 pg (25.0-34.0); Mean Corpuscular Hgb Conc 32.1 g/dL (32.0-36.0); Mean Corpuscular Volume 97.9 fL (80.0-100.0); Mean Platelet Volume 11.7 fL (9.4-12.4); Platelet Count 150 K/uL (130-400); RDW Coefficient of Variation 13.6 % (11.5-14.5); RDW Standard Deviation 49.1 fL (36.4-46.3); Red Blood Count 2.39 M/uL (4.70-6.10); White Blood Count 3.33 K/ul (4.8-10.8)
[2023-03-08] MEDS: POLYETHYLENE (MIRALAX) 17 GM PACK PO SCH (08:33)
[2023-03-08 08:40] LABS: Albumin Level 2.8 gm/dl (3.4-5.0); BUN Creatinine Ratio 9.4 (10-20); Calcium 8.9 mg/dl (8.6-10.3); Creatinine Clr Calc Pharmacy 19.6 ml/min; Est GFR (African American) 19.1 ml/min; Est GFR (Non-African American) 16.5 ml/min; Phosphorus 4.5 mg/dl (2.5-4.9); Potassium 3.8 mmol/L (3.5-5.1)
[2023-03-08 08:58] LABS: Albumin Globulin Ratio 0.9 (0.9-2); Albumin Level 2.8 gm/dl (3.4-5.0); BUN Creatinine Ratio 9.4 (10-20); Bilirubin,Total 0.4 mg/dl (0.2-1.0); Calcium 8.9 mg/dl (8.6-10.3); Creatinine Clr Calc Pharmacy 19.6 ml/min; Est GFR (African American) 19.1 ml/min; Est GFR (Non-African American) 16.5 ml/min; Globulin 3.1 gm/dl (2.5-4.0); Potassium 3.8 mmol/L (3.5-5.1); Total Protein 5.9 gm/dl (6.0-8.3)
[2023-03-08] MEDS: DOXYCYCLINE HYCLATE 100 MG in DEXTROSE 5% MINI-B 100 ML IV SCH ×2 (11:05→23:49)
--- NOTE | 2023-03-08 11:25 | Nephrology Progress Note ---
Date of Service March 08, 2023 Assessment & Plan (1) BUDDY (acute kidney injury): Plan: Etiology unclear. Non-oliguric. Electrolytes acceptable. Volume status euvolemic. No current indication for A R SPECIALIST. Creatinine unfortunately rising in the past 24 hours. Differential diagnosis includes ATN, GN, AIN, or possible other infiltrative/interstitial disease. Microscopic hematuria may certainly be glomerular despite no dysmorphic RBCs or casts. 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 Renal duplex did not demonstrate hemodynamically significant CINDA. US did not demonstrate obstruction. Serologic evaluation pending. Unfortunately, I cannot be certain when results will be available. In the interim, planning for kidney biopsy is being pursued. I have reached out to IR to discuss feasibility. Ultimately, this will likely need to be coordinated at an outside hospital. I have also placed a request to expedite lab work as much as possible. I am also waiting on results of recent CT scan and GI notes from [facility]. Repeat UA/micro has been requested as well as follow up metabolic profile. Medications appropriately dosed for kidney function. (2) Anemia: Plan: H/H dropped slightly overnight. Repeat this afternoon. Iron deficiency noted. No melena or hematochezia. Scheduled for outpatient GI evaluation. Hemoccult pending. B12 provided yesterday. Additional venofer 200 mg IV today. (3) Fever: Plan: Defervesced. Remains on Doxycycline. No obvious source of infection identified. Testing for anaplasmosis and Lyme negative. Blood cultures negative to date. Q fevers titers pending. (4) Prostate cancer: Plan: PSA remains reassuring at <1. Admission and Anticipated Discharge Date Admission Date: March 05, 2023 Subjective No acute events overnight. Keith feels well this morning. No fevers or chills. No complaints this AM. Notable improvement reported. Arthralgias improved. Appetite is good. He was hopeful to return home today. BP elevated but denies symptoms associated with accelerated hypertension. No fluid retention or edema. Review of Systems Review of Systems: All systems reviewed & are unremarkable except as noted in HPI & below Physical Exam Constitutional: well developed; no acute distress Eyes: + anicteric sclerae; no conjunctival abn ormality ENMT: Mouth: no oral mucosal abnormality and oral mucous membranes not dry Neck: normal visual inspection and trachea midline Respiratory: normal respiratory effort Auscultation: lungs clear to auscultation bilaterally Cardiovascular: Rate/Rhythm: regular rate Heart Sounds: normal S1 and normal S2 Extremities: no edema Musculoskeletal: Extremities: no cyanosis and no clubbing Skin: normal turgor; no rashes and no jaundice Neurologic: Motor/Sensory: no tremor and no asterixis Psychiatric: Orientation: alert and oriented x 3 Results & Data Vital Signs (Past 12 Hours) Vital Signs Temp Pulse Pulse Resp BP BP Pulse Ox 03/08/23 07:38 36.6 C 65 18 183/81 H 94 03/08/23 07:29 03/08/23 07:21 55 L 03/08/23 04:41 03/08/23 04:40 36.6 C 97 H 16 154/75 H 95 03/08/23 00:00 36.7 C 70 18 183/62 H 96 O2 Del Method 03/08/23 07:38 Room Air 03/08/23 07:29 Room Air 03/08/23 07:21 03/08/23 04:41 Room Air 03/08/23 04:40 Room Air 03/08/23 00:00 Room Air Laboratory Results Laboratory Results - last 24 hr 03/07/23 03/08/23 03/08/23 12:53 07:20 07:20 WBC 3.33 L RBC 2.39 L Hgb 7.5 L Hct 23.4 L MCV 97.9 MCH 31.4 MCHC 32.1 RDW Std Deviation 49.1 H RDW Coeff of Crow 13.6 Plt Count 150 MPV 11.7 Sodium 141 140 Potassium 3.8 Chloride Carbon Dioxide Anion Gap BUN Creatinine Est Cr Clr Drug Dosing Est GFR ( Amer) Est GFR (Non-Af Amer) BUN/Creatinine Ratio Glucose Calcium Phosphorus Total Bilirubin AST ALT Alkaline Phosphatase Total Protein Albumin Globulin Albumin/Globulin Ratio Stool Occult Bld Scrn Negative 03/08/23 03/08/23 03/08/23 07:20 07:20 07:20 WBC RBC Hgb Hct MCV MCH MCHC RDW Std Deviation RDW Coeff of Crow Plt Count MPV Sodium Potassium 3.8 Chloride 107 107 Carbon Dioxide 28 28 Anion Gap 6 BUN Creatinine Est Cr Clr Drug Dosing Est GFR ( Amer) Est GFR (Non-Af Amer) BUN/Creatinine Ratio Glucose Calcium Phosphorus Total Bilirubin AST ALT Alkaline Phosphatase Total Protein Albumin Globulin Albumin/Globulin Ratio Stool Occult Bld Scrn 03/08/23 03/08/23 03/08/23 07:20 07:20 07:20 WBC RBC Hgb Hct MCV MCH MCHC RDW Std Deviation RDW Coeff of Crow Plt Count MPV Sodium Potassium Chloride Carbon Dioxide Anion Gap 5 BUN 32 H 32 H Creatinine 3.42 H D 3.42 H Est Cr Clr Drug Dosing 19.6 Est GFR ( Amer) Est GFR (Non-Af Amer) BUN/Creatinine Ratio Glucose Calcium Phosphorus Total Bilirubin AST ALT Alkaline Phosphatase Total Protein Albumin Globulin Albumin/Globulin Ratio Stool Occult Bld Scrn 03/08/23 03/08/23 03/08/23 07:20 07:20 07:20 WBC RBC Hgb Hct MCV MCH MCHC RDW Std Deviation RDW Coeff of Crow Plt Count MPV Sodium Potassium Chloride Carbon Dioxide Anion Gap BUN Creatinine Est Cr Clr Drug Dosing 19.6 Est GFR ( Amer) 19.1 19.1 Est GFR (Non-Af Amer) 16.5 16.5 BUN/Creatinine Ratio 9.4 L Glucose Calcium Phosphorus Total Bilirubin AST ALT Alkaline Phosphatase Total Protein Albumin Globulin Albumin/Globulin Ratio Stool Occult Bld Scrn 03/08/23 03/08/23 03/08/23 07:20 07:20 07:20 WBC RBC Hgb Hct MCV MCH MCHC RDW Std Deviation RDW Coeff of Crow Plt Count MPV Sodium Potassium Chloride Carbon Dioxide Anion Gap BUN Creatinine Est Cr Clr Drug Dosing Est GFR ( Amer) Est GFR (Non-Af Amer) BUN/Creatinine Ratio 9.4 L Glucose 81 80 Calcium 8.9 8.9 Phosphorus 4.5 Total Bilirubin 0.4 AST 15 ALT 13 Alkaline Phosphatase 51 Total Protein 5.9 L Albumin 2.8 L Globulin Albumin/Globulin Ratio Stool Occult Bld Scrn 03/08/23 07:20 WBC RBC Hgb Hct MCV MCH MCHC RDW Std Deviation RDW Coeff of Crow Plt Count MPV Sodium Potassium Chloride Carbon Dioxide Anion Gap BUN Creatinine Est Cr Clr Drug Dosing Est GFR ( Amer) Est GFR (Non-Af Amer) BUN/Creatinine Ratio Glucose Calcium Phosphorus Total Bilirubin AST ALT Alkaline Phosphatase Total Protein Albumin 2.8 L Globulin 3.1 Albumin/Globulin Ratio 0.9 Stool Occult Bld Scrn PG Care Time/CCT Total # of Minutes Spent Total Time Spent with Patient: Total time spent is greater than 50% in coordination of care (as documented) at patient's floor/unit and/or counseling patient: Coding Level of Care Code 47997 SUB INP/OBS CARE 350MIN Diagnoses BUDDY (acute kidney injury) N17.9 Anemia D64.9 Anemia type: unspecified type Fever R50.9 Fever type: unspecified Prostate cancer C61 (2) Anemia Anemia type: unspecified type Qualified Code(s): D64.9 - Anemia, unspecified (3) Fever Fever type: unspecified Qualified Code(s): R50.9 - Fever, unspecified
[2023-03-08] MEDS ORDERED: IRON SUCROSE 200 MG in 0.9 % SODIUM CHLORIDE 100 ML IV ONE (11:45)
--- NOTE | 2023-03-08 12:29 | CT Scan Report ---
CT abd pelvis wo con CLINICAL HISTORY: geo, renal cysts TECHNIQUE: Helical axial images of the abdomen and pelvis were obtained. Automated dose lowering tech niques and/or adjustment according to patient size were utilized for this exam. This exam was perfor med without intravenous contrast. CT DOSE: 1192.87 mGy.cm COMPARISON: Comparison is made to CT abdomen pelvis 04/01/2019 and renal ultrasound 02/19/2023 FINDINGS: Lower chest: Trace bilateral pleural effusions and underlying atelectasis is seen. There is mild car diomegaly. Right middle lobe nodule measures 7 mm. Liver: Unremarkable. No focal lesions are seen. Gallbladder and biliary tree: Cholelithiasis is seen without evidence of cholecystitis. No intra- or extrahepatic biliary ductal dilation. Pancreas: Unremarkable, no focal lesions. Spleen: Unremarkable. Adrenals: Nodularity of the adrenal glands is noted. Kidneys and ureters: Multiple cysts are seen, in addition there are a few lesions that appear greater than simple fluid density most prominently in the bilateral lower poles. Bladder: Limited evaluation due to underdistention. Reproductive organs: Patient appears to be status post prostatectomy. Bowel: Diverticulosis is seen without evidence of diverticulitis. The appendix is unremarkable. Lymph nodes Retroperitoneal: Unremarkable. Pelvic: Unremarkable. Mesenteric: Unremarkable. Peritoneum: Normal. Vessels: Atherosclerotic calcifications are seen. Abdominal wall: Unremarkable. Bones: Degenerative changes in the visualized spine. IMPRESSION: Redemonstration of multiple bilateral renal lesions, mostly representing simple cysts with a few lesi ons of higher attenuation. Of note, on recent ultrasound, all of these lesions were cyst, the hyperde nse lesions likely represent proteinaceous/hemorrhagic cysts. ACT 112: Negative or not required by law. Electronically signed by: Ray Reilly M.D. 03/08/2023 12:27 PM
[2023-03-08 12:53] LABS: Appearance Urine Clear (Clear); Bacteria Urine Automated Negative (Negative); Bilirubin Urine Negative (Negative); Blood Urine 3+ (Negative); Cast Urine Automated 0 /lpf (0-5); Color Urine Yellow; Epithelial Cell Urine Auto 0-5 /lpf (0-5); Glucose Urine UA Negative (Negative); Ketones Urine Negative (Negative); Leukocyte Esterase Urine Negative (Negative); Nitrite Urine Negative (Negative); Protein Urine 1+ (Negative); RBC Urine Automated >30 /hpf (0-4); Specific Gravity Urine 1.005 (1.000-1.030); Urobilinogen Urine Negative (Negative); pH Urine 6.5 (4.5-7.5)
[2023-03-08 15:37] LABS: Babesia microti DNA Not Detected (Not Detected)
[2023-03-08 17:48] LABS: Calcium 9.4 mg/dl (8.6-10.3); Creatinine Clr Calc Pharmacy 19.4 ml/min; Est GFR (African American) 18.8 ml/min; Est GFR (Non-African American) 16.2 ml/min; Potassium 3.8 mmol/L (3.5-5.1)
[2023-03-08 18:15] LABS: Hematocrit (blood only) 26.4 % (42.0-52.0); Hemoglobin 8.6 g/dl (14.0-18.0)
--- NOTE | 2023-03-08 18:30 | Billing Data ---
Date of Service March 08, 2023 Coding Level of Care Code 23124 SUB INP/OBS CARE MIN
[2023-03-08] MEDS: ACETAMINOPHEN 325 MG TAB PO PRN (20:59)
[2023-03-08] MEDS: BENZONATATE 100 MG CAPSULE PO PRN (20:59)
[2023-03-08] MEDS: allopurinoL 100 MG TAB PO SCH (21:02)
[2023-03-08] MEDS: hydrALAZINE TAB 50 MG TAB PO SCH (21:03)
[2023-03-08] MEDS: ROSUVASTATIN CALCIUM 10 MG TAB PO SCH (21:03)
[2023-03-08] MEDS: METOPROLOL SUCC 25MG EXT REL TAB PO SCH (21:04)
[2023-03-08] MEDS ORDERED: COUGH DROP (SUGAR FREE) LOZ 24 LOZ/1 BOX BUCCAL PRN (23:26)
[2023-03-09] MEDS: LEVOTHYROXINE SODIUM 25 MCG TABLET PO SCH (05:30)
[2023-03-09] MEDS: ACETAMINOPHEN 325 MG TAB PO PRN (05:36)
--- NOTE | 2023-03-09 07:02 | Hospitalist Progress Note ---
Date of Service March 09, 2023 Assessment & Plan (1) Fever: Plan: 77 y/o male reporting significant decline in his health over the last two months. Patient with fatigue, episodes of chills and rigors. He had a fever today prior to arrival at 101 as well as hypoxia with saturations of 88%. Labs as above with pancytopenia, worsening renal function and mildly elevated troponin. #Fever #General Malaise #Pancytopenia -Etiology unclear. With pancytopenia and vague constitutional symptoms. Leading differential anaplasmosis. -CT without obvious consolidation. -Doxycycline 100 mg IV BID empirically, consider switching to atovaquone and azithromycin if no clinical improvement -Tylenol PRN for fever -Babesia smear negative, Anaplasmosis smear negative, Lyme negative, respiratory BioFire negative. -Blood cultures negative x48h. -Babesia PCR pending, immunology labs pending, UA labs pending. If above workup is unrevealing could consider sending Q-fever labs, blood cultures for HACEK organisms #Anemia #Vitamin B12 deficiency -Patient with a 8.2 hemoglobin on admission. 8.1 on 03/07. -Iron deficiency noted. Scheduled for outpatient GI evaluation. -Venofer given on 03/06. -Vitamin B12 deficiency, 1000 mcg vitamin B12 QAM started on 03/06. -Hemoccult stool negative 03/07 #BUDDY #?Glomerulonephritis -Elevated BUN and Cr to 35 and 3.15, respectively. -UA with protein and blood. CK normal. -Renal artery duplex showed no evidence for renal artery stenosis. -Consistent with intrinsic/intrarenal kidney injury with -FeNa 2.6%. -Nephrology consult -serologic and paraproteinemia work-up, hemolysis labs - LDH, haptoglobin, reticulocyte count, iron studies, B12, folate -Creatinine is stable though still elevated. -Creatinine kinase normal, PSA less than 0.008 -ESR slightly elevated at 68 -Brucellosis antibody titer requested today for possible Q fever. - Plan for transfer for renal biopsy #orthopnea -Patient describes symptoms consistent with orthopnea. -Previous echo with signs of LVH and aortic sclerosis. -Repeat Echo showed a EF of 55-60% with mild concentric left LVH. No evidence of heart failure. -We will add on amlodipine 5 mg every morning. #CAD #HTN -Patient denies chest pain. Trop peaked at 34.0. -Holding hydralazine 200 mg po BID due to possibly lupus-like reaction. -Holding isosorbide - believes symptoms started after initiation of this medication. -Holding losartan in setting of BUDDY. -Continue metoprolol 25 mg QHS. Continue Crestor. -Add on amlodipine 5 mg every morning at this time. #Hypothyroidism -Chronic. TSH within normal limits at 2.081. -Continue Synthroid Code status: full DVT ppx: low risk, ambulation FENGI: diet Dispo: transfer for renal biopsy (2) BUDDY (acute kidney injury): (3) Pancytopenia: (4) Hypothyroidism: (5) CAD (coronary artery disease): (6) Vitamin B12 deficiency: (7) Anemia: (8) Orthopnea: Admission and Anticipated Discharge Date Admission Date: March 05, 2023 Subjective No events overnight. Pt seen at bedside and Review of Systems Review of Systems: As per above Physical Exam Physical Exam: Constitutional: well-appearing, no acute distress HEENT: NCAT, no conjunctival injection CV: regular rhythm, no murmur appreciated, extremities well-perfused, no LE edema Resp: CTABL, no wheezes/rales/rhonchi appreciated, no increased work of breathing GI: soft, nondistended, nontender MSK: no gross deformities appreciated Skin: warm, dry, no rash appreciated Neuro: alert, oriented, no focal neurologic deficit appreciated Results & Data Results & Data Vital Signs (Past 12 Hours) Vital Signs Temp Pulse Pulse Resp BP Pulse Ox O2 Del Method 03/09/23 03:42 36.9 C 78 20 176/76 H 94 Room Air 03/09/23 02:05 Room Air 03/09/23 00:25 79 18 164/72 H 95 Room Air 03/08/23 23:33 36.9 C 82 20 186/78 H 96 Room Air 03/08/23 22:17 72 03/08/23 19:46 36.4 C L 72 20 195/83 H 93 Room Air (1) Fever Fever type: unspecified Qualified Code(s): R50.9 - Fever, unspecified (7) Anemia Anemia type: unspecified type Qualified Code(s): D64.9 - Anemia, unspecified
[2023-03-09 07:24] LABS: Basophils # (auto) 0.02 K/uL (0.00-0.20); Basophils % (auto) 0.5 %; Eosinophils # (auto) 0.16 K/uL (0.00-0.50); Eosinophils % (auto) 3.7 %; Hematocrit (blood only) 25.1 % (42.0-52.0); Immature Granulocytes # (auto) 0.05 K/uL (0.01-0.20); Immature Granulocytes % (auto) 1.2 %; Lymphocytes # (auto) 0.34 K/uL (1.20-3.40); Lymphocytes % (auto) 7.9 %; Mean Corpuscular Hgb Conc 31.9 g/dL (32.0-36.0); Mean Corpuscular Volume 97.3 fL (80.0-100.0); Mean Platelet Volume 11.6 fL (9.4-12.4); Monocytes # (auto) 0.25 K/uL (0.11-0.59); Monocytes % (auto) 5.8 %; Neutrophils # (auto) 3.48 K/uL (1.40-6.50); Neutrophils % (auto) 80.9 %; Ovalocytes 1+; Platelet Count 189 K/uL (130-400); RDW Coefficient of Variation 13.8 % (11.5-14.5); RDW Standard Deviation 48.9 fL (36.4-46.3); Red Blood Count 2.58 M/uL (4.70-6.10)
[2023-03-09 07:42] LABS: Bilirubin,Total 0.5 mg/dl (0.2-1.0); Magnesium 1.8 mg/dl (1.7-2.4); Potassium 3.6 mmol/L (3.5-5.1)
[2023-03-09 07:48] LABS: Albumin Globulin Ratio 0.9 (0.9-2); BUN Creatinine Ratio 8.7 (10-20); Creatinine Clr Calc Pharmacy 20.2 ml/min; Est GFR (African American) 19.7 ml/min; Globulin 3.2 gm/dl (2.5-4.0); Total Protein 6.2 gm/dl (6.0-8.3)
[2023-03-09 08:27] LABS: Albumin 2.7 g/dL (3.8-4.8); Alpha 1 Globulin 0.4 g/dL (0.2-0.3); Alpha 2 Globulin 0.8 g/dL (0.5-0.9); Beta-1-Globulin 0.3 g/dL (0.4-0.6); Beta-2-Globulin 0.4 g/dL (0.2-0.5); Gamma Globulin 1.3 g/dL (0.8-1.7); Monoclonal Protein Band 1 DNR g/dL (NONE DETECTED); Monoclonal Protein Band 2 DNR g/dL (NONE DETECTED); Monoclonal Protein Band 3 DNR g/dL (NONE DETECTED); Total Protein 5.8 g/dL (6.1-8.1)
[2023-03-09] MEDS: hydrALAZINE TAB 50 MG TAB PO SCH (08:48)
[2023-03-09] MEDS: OXYBUTYNIN CHLORIDE XL 5 MG TABCR PO SCH (08:48)
[2023-03-09] MEDS: CYANOCOBALAMIN (B-12) 500 MCG TABLET PO SCH (08:48)
[2023-03-09] MEDS: guaiFENesin 600 MG TABCR PO SCH (08:48)
[2023-03-09] MEDS: PANTOprazole 40 MG TAB PO SCH (08:49)
[2023-03-09] MEDS: PSYLLIUM or GUAR GUM FIBER POWDER PACKET PO SCH (08:49)
[2023-03-09] MEDS: POLYETHYLENE (MIRALAX) 17 GM PACK PO SCH (08:52)
[2023-03-09] MEDS ORDERED: amLODIPine BESYLATE 5 MG TAB PO SCH (09:00)
[2023-03-09] MEDS: DOXYCYCLINE HYCLATE 100 MG in DEXTROSE 5% MINI-B 100 ML IV SCH (09:32)
--- NOTE | 2023-03-09 10:20 | Nephrology Progress Note ---
Date of Service March 09, 2023 Assessment & Plan (1) BUDDY (acute kidney injury): Plan: Etiology remains unclear. Creat 1.4 mg/dL in July. Creat 2.4 mg/dL in January. Currently stable at 3.3 mg/dL. Volume status acceptable. Electrolytes normal. No current indication for dialysis. SPEP/IF did not demonstrate a monoclonal spike. Differential diagnosis includes ATN, GN, AIN, or possible other infiltrative/interstitial disease. UA +protein. Unclear if microscopic hematuria is glomerular or non-glomerular. No dysmorphic RBCs or casts were appreciated under microscopy. ESR 68. Serologic GN evaluation pending including C3/C4, CARLOS, ds DNA, ANCA, anti GBM. Transfer to [facility] once bed available. Kidney biopsy requested for definitive diagnosis. Imaging demonstrates multicystic kidneys and calcific vascular disease notably involving the abdominal aorta and proximal renal arteries. Renal duplex did not demonstrate hemodynamically significant CINDA. US did not demonstrate obstruction. Medications appropriately dosed for kidney function. (2) Anemia: Plan: Acute. Etiology unclear. Stool negative for occult blood. H/H stable. Iron deficiency noted. Completed 700 mg IV venofer. Additional 200 mg IV provided this AM. No melena or hematochezia. Scheduled for outpatient GI evaluation prior to admission. (3) Fever: Plan: Defervesced. Remains on Doxycycline IV. No obvious source of infection identified. Testing for anaplasmosis and Lyme negative. Blood cultures negative. Q fevers titers pending. (4) Prostate cancer: Plan: PSA remains reassuring at <1. Admission and Anticipated Discharge Date Admission Date: March 05, 2023 Subjective No acute events overnight. Resting comfortably in bed this morning. No fevers or chills. Overall, Keith feels well. He reports notable improvement since admission. He denies any symptoms of accelerated BP. No chest pains or palpitations. No headache. No shortness of breath. Denies fluid retention or edema. Review of Systems Review of Systems: All systems reviewed & are unremarkable except as noted in HPI & below Physical Exam Constitutional: well developed; no acute distress Eyes: + anicteric sclerae; no conjunctival abn ormality ENMT: Mouth: no oral mucosal abnormality and oral mucous membranes not dry Neck: normal visual inspection and trachea midline Respiratory: normal respiratory effort Auscultation: lungs clear to auscultation bilaterally Cardiovascular: Rate/Rhythm: regular rate Heart Sounds: normal S1 and normal S2 Extremities: + pedal edema (trace) Musculoskeletal: Extremities: no cyanosis and no clubbing Skin: normal turgor; no rashes and no jaundice Neurologic: Motor/Sensory: no tremor and no asterixis Psychiatric: Orientation: alert and oriented x 3 Results & Data Vital Signs (Past 12 Hours) Vital Signs Temp Pulse Pulse Resp BP Pulse Ox O2 Del Method 03/09/23 07:57 37.1 C 66 20 163/73 H 96 Room Air 03/09/23 07:45 Room Air 03/09/23 05:58 79 03/09/23 03:42 36.9 C 78 20 176/76 H 94 Room Air 03/09/23 02:05 Room Air 03/09/23 00:25 79 18 164/72 H 95 Room Air 03/08/23 23:33 36.9 C 82 20 186/78 H 96 Room Air Laboratory Results Laboratory Results - last 24 hr 03/05/23 03/06/23 03/08/23 00:21 06:32 12:10 WBC RBC Hgb Hct MCV MCH MCHC RDW Std Deviation RDW Coeff of Crow Plt Count MPV Immature Gran % (Auto) Neut % (Auto) Lymph % (Auto) Kingfisher % (Auto) Eos % (Auto) Baso % (Auto) Neut # (Auto) Lymph # (Auto) Kingfisher # (Auto) Eos # (Auto) Baso # (Auto) Immature Gran # (Auto) Ovalocytes Sodium Potassium Chloride Carbon Dioxide Anion Gap BUN Creatinine Est Cr Clr Drug Dosing Est GFR ( Amer) Est GFR (Non-Af Amer) BUN/Creatinine Ratio Glucose Calcium Magnesium Total Bilirubin AST ALT Alkaline Phosphatase Total Protein Total Protein (PEP) 5.8 L Albumin Albumin (PEP) 2.7 L Globulin Albumin/Globulin Ratio Mvfqu-3-Ckoeopoyo 0.4 H Igcot-0-Xvrppdfba 0.8 Onla-9-Kpnlafqi 0.3 L Nhrh-9-Rkpzdxbl 0.4 Gamma Globulins 1.3 Monoclonal Peak 3 DNR Ser Monoclonl Protein DNR Ser Monoclonal Prot 2 DNR PEP Interpretation SEE NOTE Urine Color Yellow Urine Appearance Clear Urine pH 6.5 Ur Specific Montrose 1.005 Urine Protein 1+ H Urine Glucose (UA) Negative Urine Ketones Negative Urine Blood 3+ H Urine Nitrite Negative Urine Bilirubin Negative Urine Urobilinogen Negative Ur Leukocyte Esterase Negative Urine WBC (Auto) 1-5 Urine RBC (Auto) >30 H U Hyaline Cast (Auto) 0 U Epithel Cells (Auto) 0-5 Urine Bacteria (Auto) Negative Babesia microti DNA PCR Not Detected 03/08/23 03/09/23 17:22 05:27 WBC 4.30 L RBC 2.58 L Hgb 8.6 L 8.0 L Hct 26.4 L 25.1 L MCV 97.3 MCH 31.0 MCHC 31.9 L RDW Std Deviation 48.9 H RDW Coeff of Crow 13.8 Plt Count 189 MPV 11.6 Immature Gran % (Auto) 1.2 Neut % (Auto) 80.9 Lymph % (Auto) 7.9 Kingfisher % (Auto) 5.8 Eos % (Auto) 3.7 Baso % (Auto) 0.5 Neut # (Auto) 3.48 Lymph # (Auto) 0.34 L Kingfisher # (Auto) 0.25 Eos # (Auto) 0.16 Baso # (Auto) 0.02 Immature Gran # (Auto) 0.05 Ovalocytes 1+ Sodium 140 140 Potassium 3.8 3.6 Chloride 106 108 H Carbon Dioxide 27 26 Anion Gap 7 6 BUN 31 H 29 H Creatinine 3.46 H 3.33 H Est Cr Clr Drug Dosing 19.4 20.2 Est GFR ( Amer) 18.8 19.7 Est GFR (Non-Af Amer) 16.2 17.0 BUN/Creatinine Ratio 9.0 L 8.7 L Glucose 99 78 Calcium 9.4 9.0 Magnesium 1.8 Total Bilirubin 0.5 AST 17 ALT 14 Alkaline Phosphatase 55 Total Protein 6.2 Total Protein (PEP) Albumin 3.0 L Albumin (PEP) Globulin 3.2 Albumin/Globulin Ratio 0.9 Drahm-3-Klpfpstee Qfzsw-6-Sjdrhscio Tjrc-8-Spwqufrz Ufxq-3-Ixjwyuby Gamma Globulins Monoclonal Peak 3 Ser Monoclonl Protein Ser Monoclonal Prot 2 PEP Interpretation Urine Color Urine Appearance Urine pH Ur Specific Montrose Urine Protein Urine Glucose (UA) Urine Ketones Urine Blood Urine Nitrite Urine Bilirubin Urine Urobilinogen Ur Leukocyte Esterase Urine WBC (Auto) Urine RBC (Auto) U Hyaline Cast (Auto) U Epithel Cells (Auto) Urine Bacteria (Auto) Babesia microti DNA PCR PG Care Time/CCT Total # of Minutes Spent Total Time Spent with Patient: Total time spent is greater than 50% in coordination of care (as documented) at patient's floor/unit and/or counseling patient: Coding Level of Care Code 15306 SUB INP/OBS CARE 50MIN Diagnoses BUDDY (acute kidney injury) N17.9 Anemia D64.9 Anemia type: unspecified type Fever R50.9 Fever type: unspecified Prostate cancer C61 (2) Anemia Anemia type: unspecified type Qualified Code(s): D64.9 - Anemia, unspecified (3) Fever Fever type: unspecified Qualified Code(s): R50.9 - Fever, unspecified
[2023-03-09] MEDS ORDERED: IRON SUCROSE 200 MG in 0.9 % SODIUM CHLORIDE 100 ML IV ONE (10:28)
--- NOTE | 2023-03-09 17:03 | Discharge Summary ---
Date of Service March 09, 2023 Admission HPI Per Admitting Provider Keith Fung is a 77yo male with history of CAD, HTN, HLP, Gout, prostate CA s/p prostatectomy presenting with multiple complaints. Patient has had a sharp decline in his health over the last two months. 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 However, over the last two months he has had persistent fatigue, chills with occasional rigors, dry cough with some shortness of breath and occasional chest discomfort. Poor appetite with decreased oral intake as well as poor sleep. He had a fever today prior to arrival to 101 as well as decreased oxygen saturation to 88% on room air (no known lung disease or supplemental O2 use). reports that patient has little energy to do anything. Patient called their PCP with these complaints and tried to get an appointment but they were unable to be seen and were directed to the ER. Patient endorses weight loss of 25# unintentional over the last year. He denies abdominal pain, nausea, vomiting, diarrhea. He denies urinary complaints. He has CKD with baseline Cr of 1.4 - 1.7. He was recently seen by Nephrology on 02/17/23 for worsening renal function, followup of BUDDY. He had a UA from 02/15 that showed 2+ protein and 1+ bacteria. He also had an elevated microalbumin/Cr ratio at 382.3. He is to have repeat labwork performed. He is also scheduled to see Urology on 03/17/23. No recent travel or sick contacts. [place] in [place] - no known tick bites. In the ER patient is afebrile, bradycardic, mildly elevated blood pressure ER Course: Ceftriaxone NSS Principal Diagnosis Acute Kidney Injury Discharge Exam Constitutional: well-appearing, no acute distress HEENT: NCAT, no conjunctival injection CV: regular rhythm, no murmur appreciated, extremities well-perfused Resp: CTABL, no wheezes/rales/rhonchi appreciated, no increased work of breathing GI: soft, nondistended, nontender, BS normoactive MSK: no gross deformities appreciated Skin: warm, dry, no rash appreciated Neuro: alert, oriented, no focal neurologic deficit appreciated Discharge Data Allergies Allergy/AdvReac Type Severity Reaction Status Date / Time Iodinated Contrast Media AdvReac Unknown Avoids d/t Verified 03/05/23 00:09 CKD NSAIDS (Non-Steroidal AdvReac Unknown Avoids d/t Verified 03/05/23 00:09 Anti-Inflamma CKD trazodone AdvReac Unknown BUDDY Verified 03/05/23 00:09 Consultations 03/05/23 00:14 ED Decision to Admit Stat 03/05/23 03:56 Consult Nephrology Routine 03/09/23 07:36 Burn CD for patient Routine Ordered Studies 03/05/23 03:56 CT chest diagnostic wo con Routine 03/06/23 12:32 US duplex renal artery Routine 03/08/23 11:33 CT abd pelvis wo con Routine Hospital Course (1) BUDDY (acute kidney injury): 77 y/o male reporting significant decline in his health over the last two months. Patient with fatigue, episodes of chills and rigors. He had a fever today prior to arrival at 101 as well as hypoxia with saturations of 88%. Labs as above with pancytopenia, worsening renal function and mildly elevated troponin. #Fever #General Malaise #Pancytopenia -Etiology unclear. With pancytopenia and vague constitutional symptoms, concern for tick borne illness, specifically anaplasmosis -CT without obvious consolidation. -Doxycycline 100 mg IV BID empirically. Plan to treat for a total of 14 days. Was started on 03/05. -Tylenol PRN for fever -Babesia smear negative, Anaplasmosis smear negative, Lyme negative, respiratory BioFire negative -Blood cultures negative x48h. -Babesia PCR pending, immunology labs pending, UA labs pending #Anemia #Vitamin B12 deficiency -Patient with a 8.2 hemoglobin on admission. 8.6 on 03/08. -Iron deficiency noted. Scheduled for outpatient GI evaluation. -Venofer given on 03/06. -Vitamin B12 deficiency, 1000 mcg vitamin B12 QAM started on 03/06. #BUDDY #?Glomerulonephritis -Creatine= 3.46 03/08 with a baseline of 1.4 08/09 -UA with protein and blood. CK normal. -Renal artery duplex showed no evidence for renal artery stenosis. -Consistent with intrinsic/intrarenal kidney injury with -FeNa 2.6%. -Nephrology consult -serologic and paraproteinemia work-up, hemolysis labs - LDH, haptoglobin, reticulocyte count, iron studies, B12, folate -Differential: postinfectious glomerulonephritis/immune mediated nephritis vs progressive CKD over the past 6 months -Creatinine is stable though still elevated. -Creatinine kinase normal, PSA less than 0.008 -ESR slightly elevated at 68 -Brucellosis antibody titer requested today for possible Q fever. - Plan for transfer for renal biopsy #orthopnea -Patient describes symptoms consistent with orthopnea. -Previous echo with signs of LVH and aortic sclerosis. -Repeat Echo showed a EF of 55-60% with mild concentric left LVH. No evidence of heart failure. #CAD #HTN -Patient denies chest pain. Trop peaked at 34.0. -Were holding hydralazine 200 mg po BID due to possibly lupus-like reaction; restarted 03/08 for persistent HTN -Holding isosorbide - believes symptoms started after initiation of this medication. -Holding losartan in setting of BUDDY. -Continue metoprolol 25 mg QHS. Continue Crestor. -Add on amlodipine 10 mg every morning at this time. #Hypothyroidism -Chronic. TSH within normal limits at 2.081. -Continue Synthroid (2) Anemia: (3) Hypothyroidism: (4) Orthopnea: (5) Vitamin B12 deficiency: (6) CAD (coronary artery disease): (7) Pancytopenia: (8) Elevated troponin: (9) Fever: Total Time Total Time Spent Total Time Spent (In Minutes): <30 Discharge Plan Discharge Items Patient Disposition: Transfer Acute Care Hospital Reason For Visit: FEBRILE ILLNESS Discharge Diagnosis: Pancytopenia, Acute Kidney Injury Condition on Discharge: Fair Activity: Per Instructions section Non-emergency contact: Primary Care Provider Call non-emergency contact if: you have any medication questions Follow-up/Referrals: Jose Zambrano [Primary Care Provider] - Diet: Regular Addtl Attending Provider Instructions: 77 y/o male reporting significant decline in his health over the last two months. Patient with fatigue, episodes of chills and rigors. He had a fever today prior to arrival at 101 as well as hypoxia with saturations of 88%. Labs as above with pancytopenia, worsening renal function and mildly elevated troponin. #Fever #General Malaise #Pancytopenia -Etiology unclear. With pancytopenia and vague constitutional symptoms, concern for tick borne illness, specifically anaplasmosis -CT without obvious consolidation. -Doxycycline 100 mg IV BID empirically, consider switching to atovaquone and azithromycin if no clinical improvement -Tylenol PRN for fever -Babesia smear negative, Anaplasmosis smear negative, Lyme negative, respiratory BioFire negative -Blood cultures negative x48h. -Babesia PCR pending, immunology labs pending, UA labs pending #Anemia #Vitamin B12 deficiency -Patient with a 8.2 hemoglobin on admission. 8.6 on 03/08. -Iron deficiency noted. Scheduled for outpatient GI evaluation. -Venofer given on 03/06. -Vitamin B12 deficiency, 1000 mcg vitamin B12 QAM started on 03/06. #BUDDY #?Glomerulonephritis -Creatine= 3.46 03/08 with a baseline of 1.4 08/09 -UA with protein and blood. CK normal. -Renal artery duplex showed no evidence for renal artery stenosis. -Consistent with intrinsic/intrarenal kidney injury with -FeNa 2.6%. -Nephrology consult -serologic and paraproteinemia work-up, hemolysis labs - LDH, haptoglobin, reticulocyte count, iron studies, B12, folate -Differntial: postinfectious glomerulonephritis/immune mediated nephritis vs progressive CKD over the past 6 months -Creatinine is stable though still elevated. -Creatinine kinase normal, PSA l ess than 0.008 -ESR slightly elevated at 68 -Brucellosis antibody titer requested today for possible Q fever. - Plan for transfer for renal biopsy #orthopnea -Patient describes symptoms consistent with orthopnea. -Previous echo with signs of LVH and aortic sclerosis. -Repeat Echo showed a EF of 55-60% with mild concentric left LVH. No evidence of heart failure. #CAD #HTN -Patient denies chest pain. Trop peaked at 34.0. -Holding hydralazine 200 mg po BID due to possibly lupus-like reaction; restarted 03/08 for persistant HTN -Holding isosorbide - believes symptoms started after initiation of this medication. -Holding losartan in setting of BUDDY. -Continue metoprolol 25 mg QHS. Continue Crestor. -Add on amlodipine 10 mg every morning at this time. #Hypothyroidism -Chronic. TSH within normal limits at 2.081. -Continue Synthroid please note that the attached med reconcilliation represents patients home meds, please see MAR for acute inpatient meds Pending Studies at Discharge: Yes Stand-Alone Forms: My [facility] Skilled Items Patient informed of condition?: Yes DNR: No Discharge Level of Care: Other Communicable Disease: No Discharge Prognosis: Stable Lines: Peripheral IV Urinary Catheter: No Medications and DC Order Prescriptions: Continued allopurinol 300 mg tablet 300 mg PO HS Align 4 mg capsule 4 mg PO DAILY solifenacin [Vesicare] 10 mg tablet 10 mg PO DAILY Qty: 90 1RF rosuvastatin 10 mg tablet 10 mg PO DAILY Qty: 30 3RF Rx Instructions: stop rosuvastatin 40 mg daily and start reduced dose 10 mg daily hydralazine 100 mg tablet 200 mg PO BID Rx Instructions: 200 mg IN AM AND 200mg IN afternoon; isosorbide mononitrate 30 mg tablet extended release 24 hr 30 mg PO DAILY losartan 50 mg tablet 50 mg PO BID Metamucil (sugar) Powder 1 tbsp PO DAILY levothyroxine 25 mcg Tablet 25 mcg PO QAM pantoprazole 40 mg tablet,delayed release (DR/EC) 40 mg PO DAILY tadalafil [Cialis] 5 mg tablet 5 mg PO DAILY PreserVision AREDS [id number] Capsule 1 cap PO BID rosuvastatin 40 mg tablet 40 mg PO HS Hold Instructions: Home Medication placed on hold at Doctor's office metoprolol succinate 50 mg tablet extended release 24 hr 25 mg PO HS albuterol sulfate 90 mcg/actuation HFA aerosol inhaler 2 inh inhalation Q6H Qty: 18 2RF ergocalciferol (vitamin D2) 1,250 mcg (50,000 unit) capsule 1,250 mcg PO WK Rx Instructions: 1,250 mcg orally weekly; Discharge Orders: Discharge Order (Routine); Ordered 03/09/23 Ordered By: José Miguel Cedeno Admission Data Admit Date/Time: 03/05/23 00:55 Attending Provider: José Miguel Cedeno Admit Provider: Celestina Chapman Primary Care Provider: Jose Zambrano Other Providers: Celestina Chapman; Eli Mobley; Wilma Arnold Other Interventions: Discharge Summary Assessment (RN) Last Done: 03/09/23 15:25 Supervising Physician Co-Signing Physician Notes I personally examined the patient and verified all valenzuela points of history and exam, discussed case, and agree with decision making with Dr Solano No new complaints. Bed at [facility] available. Vitals noted, in general he is awake and alert pleasant no distress. HEENT normocephalic atraumatic mucous membranes moist. Breathing unlabored no accessory muscle use good effort. Skin shows no rashes no pallor or icterus. Fever, acute renal failuredifferentials really ranged from infection with postinfectious glomerulonephritis/immune mediated nephritis as the whole picture, or a slowly progressive CKD over the last 6 months with his acute picture all stemming from his symptoms from his infection and the renal failure is an incidental finding. Given this broad differential, and no clear "telling signs" from her work-up thus far, I agree that a renal biopsy could be quite helpful. An extensive discussions with patient and family, all in agreement to transfer for renal biopsy makes the most sense. Accepted at [facility] , bed today. Infectious picture being empirically treated for anaplasmosis given high prevalence here and no other obvious signs of "typical" infection otherwise as above Resident Activity Tracking Resident Involvement: Resident Care Provided Care Provided: Adult Hospital Medicine
--- NOTE | 2023-03-09 17:26 | Billing Data ---
Date of Service March 09, 2023 Coding Level of Care Code 23135 IN/OBS DISCH 30 MIN/LESS
[2023-03-10 02:12] LABS: ANCA Screen P-ANCA POS (Negative); Anti Nuclear Antibody Screen POSITIVE (NEGATIVE); Anti-Glom Basement Antibody <1.0 AI (<1.0); Complement C3 94 mg/dL (82-185); Free Kappa 190.9 mg/L (3.3-19.4); Free Lambda 136.5 mg/L (5.7-26.3); Haptoglobin 282 mg/dL (43-212); Myeloperoxidase Ab 4.7 AI (<1.0); Proteinase-3 AB 2.2 AI (<1.0)
[2023-03-10 06:22] LABS: Creatinine Ur 33 mg/dL (20-320); Protein, Urine Random 56 mg/dL (5-25); Ur Protein/Creat Ratio mg/g 1697 mg/g creat (25-148); Urine Abnormal Protein Band 1 DNR mg/dL (NONE DETECTED); Urine Abnormal Protein Band 2 DNR mg/dL (NONE DETECTED); Urine Abnormal Protein Band 3 DNR mg/dL (NONE DETECTED); Urine Protein/Creatinine Ratio 1.697 (0.025-0.148)
[2023-03-10 09:49] LABS: ANA Pattern Nuclear, Homogeneous; ANA Titer > OR = 1:1280 titer; P-ANCA(Reflex Only Do Not Ord >1:640 Titer (<1:20)
[2023-03-10 12:09] LABS: Ehrlichia chaff DNA Bld Negative (Negative)
[2023-03-22 11:02] LABS: Q Fever IgG, Phase I NEGATIVE; Q Fever Phase I IgM Antibody NEGATIVE; Q Fever Phase II IgG Antibody NEGATIVE; Q Fever Phase II IgM Antibody NEGATIVE
== END 2023-03-09 15:40 | disposition short-term general hospital (02) | DRG 683 ==
LOC: ED 21:55 → 2E 03-05 00:55 → SUATTDRO 03-05 00:55 → 2E 03-05 04:00 → 2N 03-06 18:17